=== PATIENT | male | born 1965 | race African-American/Black ===

== ENCOUNTER 2021-11-27 09:36 | Outpatient (CLI) | payer OTHER, SELFPAY | END 2021-11-27 09:37 | disposition home or self-care (01) | LOC: LKVREF 09:40 | PROVIDERS: PCP Family Medicine; Visit Provider Family Medicine | DX: Z00.00 Encounter for general adult medical examination without abnormal findings (principal); Z12.5 Encounter for screening for malignant neoplasm of prostate | CPT/HCPCS: 84153 ==

== ENCOUNTER 2021-12-11 12:18 | Outpatient (CLI) | payer OTHER, SELFPAY | END 2021-12-11 12:19 | disposition home or self-care (01) | LOC: OP CLINIC 12:20 | PROVIDERS: PCP Family Medicine; Visit Provider Surgery | DX: Z12.11 Encounter for screening for malignant neoplasm of colon (principal); K63.5 Polyp of colon; K62.1 Rectal polyp | CPT/HCPCS: 45385; 88305; 99153; J2250; J3010 ==

== ENCOUNTER 2022-01-25 15:17 | Outpatient (CLI) | payer OTHER, SELFPAY ==
[2022-01-25 22:16] LABS: Albumin* 4.4 g/dL (3.3-5.0)
[2022-01-25 22:17] LABS: Chloride* 105 mmol/L (96-114); Potassium* 4.6 mmol/L (3.6-5.1); Sodium* 139 mmol/L (135-149)
[2022-01-25 22:19] LABS: Aspartate Amino Transferase* 43 U/L (12-35); Bilirubin Total* 0.7 mg/dL (0.1-1.5); Blood Urea Nitrogen* 13 mg/dL (7-30); Carbon Dioxide* 27 mmol/L (20-32); Cholesterol* 193 mg/dL (90-199); Estimated Glomerular Filt Rate 89 ml/min; Total Protein* 7.1 g/dL (6.0-8.3)
[2022-01-25 22:20] LABS: Alanine Aminotransferase* 44 U/L (4-50); Alkaline Phosphatase* 82 U/L (40-150); Calcium* 9.3 mg/dL (8.4-10.6); Glucose* 94 mg/dL (60-115); HDL Cholesterol* 46 mg/dL (>=40); LDL Cholesterol Calculated 127 mg/dL (<100); Triglycerides* 99 mg/dL (40-149)
[2022-01-25 22:35] LABS: Vitamin D 25 Hydroxy* 19 ng/mL (30-80)
[2022-01-25 23:07] LABS: Vitamin B12* 348 pg/mL (243-894)
[2022-01-27 14:35] LABS: Insulin, Fasting 15 uIU/mL (3-25)
[2022-01-30 17:40] LABS: Vitamin B6 (Pyridoxal 5-Phos) 178.8 nmol/L (20.0-125.0)
[2022-02-02 14:16] LABS: Sex Hormone Binding Globulin 35 nmol/L (19-76); Testosterone, Free LC-MS/MS 81.9 pg/mL (47.0-244.0); Testosterone, LC-MS/MS 452 ng/dL (300-890)
== END 2022-01-25 15:18 | disposition home or self-care (01) ==
PROVIDERS: PCP Family Medicine; Visit Provider Family Medicine
DX: Z00.00 Encounter for general adult medical examination without abnormal findings (principal); E66.9 Obesity, unspecified; G47.30 Sleep apnea, unspecified; Z13.6 Encounter for screening for cardiovascular disorders; Z13.29 Encounter for screening for other suspected endocrine disorder; Z13.1 Encounter for screening for diabetes mellitus; Z13.0 Encounter for screening for diseases of the blood and blood-forming organs and certain disorders involving the immune mechanism
CPT/HCPCS: 80053; 80061; 82306; 82607; 83525; 84207; 84270; 84402; 84403; 84443

== ENCOUNTER 2022-02-22 08:48 | Outpatient (CLI) | payer OTHER, SELFPAY | END 2022-02-22 08:49 | disposition home or self-care (01) | LOC: RAD 08:48 | PROVIDERS: PCP Family Medicine; Visit Provider Family Medicine | DX: R94.31 Abnormal electrocardiogram [ECG] [EKG] | CPT/HCPCS: 93306; Q9957 ==

== ENCOUNTER 2023-06-06 13:11 | Outpatient (REF) | payer BC, SELFPAY ==
--- OUTSIDE RECORDS SUMMARY | 2023-06-06 13:22 | XMS_ITS | Encounter Summary ---
Author Name Unknown Organization [facility] Address [address] [place] [address] Care Team Providers Care Leach Cell Operator Name Role Phone Roverto Morley MD Primary Care Provider [phone] Encounter Details Date Type Department Care Team (Latest Contact Info) Description 05/02/2023 Travel Social History Tobacco Use Types Packs/Day Years Used Date Smoking Tobacco: Never Assessed Adolescent Education Answer Date Record ed Getting School Help Needed Not on file 11/02 Sex and Gender Information Value Date Recorded Sex Assigned at Not on file Gender Identity Not on file Sexual Orientation Not on file documented as of this encounter Plan of Treatment Not on file documented as of this encounter Visit Diagnoses Not on filedocumented in this encounter Care Teams Leach Cell Operator Relationship Specialty Start Date End Date Roverto Morley MD [facility] [address] [address] PCP - General Family Medicine 07/05/22 documented as of this encounter
--- OUTSIDE RECORDS SUMMARY | 2023-06-06 13:22 | XMS_ITS | Referral Summary ---
Author Name Unknown Organization [facility] Address [address] [place] [address] Care Team Providers Care Podiatry Doctor Name Role Phone Roverto Morley MD Primary Care Provider [phone] Encounters Date Type Department Care Team Description 05/02/2023 Travel 05/02/2023 8:25 PM CDT - 05/02/2023 9:33 PM CDT Emergency [facility] Emergency Dept [address] [place] [address] Slim Cali MD Burns, Bradley Joseph, SVT (supraventricular tachycardia) Discharge Disposition: Home or Self Care from Last 3 Months Allergies Active Allergy Reactions Criticality Noted Date Comments Fumaric Acid Itching 10/27/2009 Morphine Itching,Unknown,Other (See Comments) High 11/27/2021 itching Medications No known medications Social History Tobacco Use Types Packs/Day Years Used Date Smoking Tobacco: Never Assessed Adolescent Education Answer Date Record ed Getting School Help Needed Not on file 11/02 Sex and Gender Information Value Date Recorded Sex Assigned at Not on file Gender Identity Not on file Sexual Orientation Not on file Last Filed Vital Signs Vital Sign Reading Time Taken Comments Blood Pressure 137/81 05/02/2023 9:22 PM CDT Pulse 102 05/02/2023 9:22 PM CDT Temperature - - Respiratory Rate 18 05/02/2023 9:32 PM CDT Oxygen Saturation 98% 05/02/2023 9:32 PM CDT Inhaled Oxygen Concentration - - Weight 145.2 kg (320 lb) 05/02/2023 8:30 PM CDT Height 190.5 cm (6' 3) 05/02/2023 8:30 PM CDT Body Mass Index 40 05/02/2023 8:30 PM CDT Plan of Treatment Not on file Procedures Procedure Name Priority Date/Time Associated Diagnosis Comments CBC WITH PLATELETS & DIFFERENTIAL STAT 05/02/2023 8:35 PM CDT CBC WITH PLATELETS AND DIFFERENTIAL STAT 05/02/2023 8:35 PM CDT BASIC METABOLIC PANEL STAT 05/02/2023 8:35 PM CDT EXTRA PURPLE TOP TUBE STAT 05/02/2023 8:35 PM CDT EXTRA GREEN TOP (LITHIUM HEPARIN) TUBE STAT 05/02/2023 8:35 PM CDT EXTRA RED TOP TUBE STAT 05/02/2023 8: 35 PM CDT EXTRA BLUE TOP TUBE STAT 05/02/2023 8 :35 PM CDT EXTRA TUBE STAT 05/02/2023 8:35 PM CDT EKG 12-LEAD, TRACING ONLY STAT 05/02/2023 8:33 PM CDT EKG 12-LEAD, TRACING ONLY STAT 05/02/2023 8:28 PM CDT from Last 3 Months Results * Extra Purple Top Tube (05/02/2023 8:35 PM CDT) Hold Specimen [facility] 05/02/2023 9:46 PM CDT LABORATORY Blood VENOUS LINE / Unknown Venipuncture / Unknown 05/02/2023 8:35 PM CDT 05/02/2023 8:41 PM CDT Slim Cali MD LAB - BLOOD ORDERABL ES LABORATORY [facility] Lab [address] [facility] Lab (1st floor, no room number) [place] [address] * Extra Green Top ([place] Heparin) Tube (05/02/2023 8:35 PM CDT) Hold Specimen [facility] 05/02/2023 9:46 PM CDT [facility] LABORATORY Blood VENOUS LINE / Unknown Venipuncture / Unknown 05/02/2023 8:35 PM CDT 05/02/2023 8:41 PM CDT Slim Cali MD LAB - BLOOD ORDERABL ES [facility] [address] Lab (1st floor, no room number) [place] [address] * Extra Red Top Tube (05/02/2023 8:35 PM CDT) Hold Specimen [facility] 05/02/2023 9:46 PM CDT [facility] LAB[facility]ATORY Blood VENOUS LINE / Unknown Venipuncture / Unknown 05/02/2023 8:35 PM CDT 05/02/2023 8:41 PM CDT Slim Cali MD LAB - BLOOD ORDERABL ES [facility] Lab [address] Lab (1st floor, no room number) [place] [address] * Extra Blue Top Tube (05/02/2023 8:35 PM CDT) Hold Specimen [facility] 05/02/2023 9:46 PM CDT [facility] LAB[facility]AT[facility] Blood VENOUS LINE / Unknown Venipuncture / Unknown 05/02/2023 8:35 PM CDT 05/02/2023 8:41 PM CDT Slim Cali MD LAB - BLOOD ORDERABL ES [facility] Acute Care Lab [address] Lab (1st floor, no room number) [place] [id number] * CBC with platelets and differential (05/02/2023 8:35 PM CDT) WBC Count 5.1 4.0 - 11.0 10e3/uL 05/02/2023 8:44 PM CDT [facility] LAB[facility] RBC Count 5.23 4.40 - 5.90 10e6/uL 05/02/2023 8:44 PM CDT [facility] Hemoglobin 15.4 13.3 - 17.7 g/dL 05/02/2023 8:44 PM CDT [facility] LAB[facility] Hematocrit 45.4 40.0 - 53.0 % 05/02/2023 8:44 PM CDT [facility] MCV 87 78 - 100 fL 05/02/2023 8:44 PM CDT [facility] MCH 29.4 26.5 - 33.0 pg 05/02/2023 8:44 PM CDT [facility] MCHC 33.9 31.5 - 36.5 g/dL 05/02/2023 8:44 PM CDT [facility] RDW 12.7 10.0 - 15.0 % 05/02/2023 8:44 PM CDT [facility] Platelet Count 307 150 - 450 10e3/uL 05/02/2023 8:44 PM CDT [facility] % Neutrophils 59 % 05/02/2023 8:44 PM CDT [facility] % Lymphocytes 29 % 05/02/2023 8:44 PM CDT [facility] % Monocytes 9 % 05/02/2023 8:44 PM CDT [facility] % Eosinophils 2 % 05/02/2023 8:44 PM CDT [facility] % Basophils 1 % 05/02/2023 8:44 PM CDT [facility] % Immature Granulocytes 0 % 05/02/2023 8:44 PM CDT [facility] NRBCs per 100 WBC 0 <1 /100 024 8:44 PM CDT [facility] Absolute Neutrophils 3.0 1.6 - 8.3 10e3/uL 05/02/2023 8:44 PM CDT [facility] Absolute Lymphocytes 1.5 0.8 - 5.3 10e3/uL 05/02/2023 8:44 PM CDT [facility] Absolute Monocytes 0.4 0.0 - 1.3 10e3/uL 05/02/2023 8:44 PM CDT [facility] Absolute Eosinophils 0.1 0.0 - 0.7 10e3/uL 05/02/2023 8:44 PM CDT [facility] Absolute Basophils 0.1 0.0 - 0.2 10e3/uL 05/02/2023 8:44 PM CDT [facility] Absolute Immature Granulocytes 0.0 <=0.4 10e3/uL 05/02/2023 8:44 PM CDT [facility] Absolute NRBCs 0.0 10e3/uL 05/02/2023 8:44 PM CDT [facility] LAB[facility] Blood VENOUS LINE / Unknown Venipuncture / Unknown 05/02/2023 8:35 PM CDT 05/02/2023 8:41 PM CDT Vineet Houston DO LAB - BLOOD ORDE ABEL [facility] LABORATORY [facility] Lab [address] [facility] Lab (1st floor, no room number) [place] [phone] * (ABNORMAL) Basic metabolic panel (05/02/2023 8:35 PM CDT) Sodium 141 135 - 145 mmol/L 05/02/2023 9:01 PM CDT [facility] LABORATORY Comment:Reference intervals for this test were updated on 11/05/2022 to more accurately reflect our healthy population. There may be differences in the flagging of prior results with similar values performed with this method. Interpretation of those prior results can be made in the context of the updated reference intervals. Potassium 3.9 3.4 - 5.3 mmol/L 05/02/2023 9:01 PM CDT [facility] Chloride 105 98 - 107 mmol/L 05/02/2023 9:01 PM CDT [facility] Carbon Dioxide (CO2) 23 22 - 29 mmol/L 05/02/2023 9:01 PM CDT [facility] Anion Gap 13 7 - 15 mmol/L 05/02/2023 9:01 PM CDT [facility] Urea Nitrogen 19.3 6.0 - 20.0 mg/dL 05/02/2023 9:01 PM CDT [facility] Creatinine 1.03 0.67 - 1.17 mg/dL 05/02/2023 9:01 PM CDT [facility] GFR Estimate 86 >60 mL/min/1. 73m2 05/02/2023 9:01 PM CDT [facility] Calcium 9.3 8.6 - 10.0 mg/dL 05/02/2023 9:01 PM CDT LABORATORY Glucose 160(H) 70 - 99 mg/dL 05/02/2023 9:01 PM CDT [facility] LAB[facility] Blood VENOUS LINE / Unknown Venipuncture / Unknown 05/02/2023 8:35 PM CDT 05/02/2023 8:41 PM CDT Vineet Houston DO LAB - BLOOD ORDE RABLES LABORATORY [facility] Lab [address] Lab (1st floor, no room number) [place] [address], [facility] * EKG 12-lead, tracing only (05/02/2023 8:33 PM CDT) Only the most recent of2 resultswithin the time period is included. Systolic Blood Pressure mmHg RADIOLOGY RESULTS Diastolic Blood Pressure mmHg RADIOLOGY RESULTS Ventricular Rate 106 BPM RAD IOLOGY RESULTS Atrial Rate 106 BPM RADIOLOG Y RESULTS HI Interval 178 ms RADIOLOG Y RESULTS QRS Duration 86 ms RADIOLO GY RESULTS QT 344 ms RADIOLOGY RESULTS QTc 456 ms RADIOLOGY RESULTS P [place] 63 degrees RADIOLOGY RESULTS R AXIS 43 degrees RADIOLOGY RESULTS T [place] 29 degrees RADIOLOGY RESULTS Interpretation ECG Sinus tachycardia Otherwise normal ECG When compared with ECG of 02-MAY-2023 20:28, (unconfirmed) Fusion complexes are no longer Present Premature ventricular complexes are no longer Present Vent. rate has decreased BY ??58 BPM RADIOLOGY RESULTS 05/02/2023 8:33 PM CDT 05/02/2023 9:59 PM CDT Vineet Houston DO ECG ORDERABLES RADIOLOGY RESULTS from Last 3 Months Care Teams Podiatry Doctor Relationship Specialty Start Date End Date Roverto Morley MD [facility] [address] [address] PCP - General Family Medicine 07/05/22
--- OUTSIDE RECORDS SUMMARY | 2023-06-06 13:22 | XMS_ITS | Encounter Summary ---
Author Name Unknown Organization [facility] Address [address] [place] [address] Care Team Providers Care Orchestra Leader Name Role Phone Roverto Morley MD Primary Care Provider [phone] Reason for Visit * Reason Comments Tachycardia Encounter Details Date Type Department Care Team (Late st Contact Info) Description 05/02/2023 8:25 PM CDT - 05/02/2023 9:[address] [facility] Emergency Dept [address] [place] [address] Slim Cali MD [facility] [address] [place] [address] Vineet Cui DO [facility] [address] [facility] [place] [address] SVT (supraventricular tachycardia) Discharge Disposition: Home or Self Care Social History Tobacco Use Types Packs/Day Years Used Date Smoking Tobacco: Never Assessed Adolescent Education Answer Date Record ed Getting School Help Needed Not on file 11/02 Sex and Gender Information Value Date Recorded Sex Assigned at Not on file Gender Identity Not on file Sexual Orientation Not on file documented as of this encounter Last Filed Vital Signs Vital Sign Reading [...] Mass Index 40 05/02/2023 8:30 PM CDT documented in this encounter Discharge Instructions * Discharge Instructions* Vineet Cui DO - 05/02/2023 9:10 PM CDT What do you do next: Continue your home medications unless we have specifically changed them Continue to monitor for recurrent fluttering of the heart, lightheadedness, etc. I think it is reasonable to talk with your primary care clinic about a wearable heart monitor firstand then depending on the results of that they can discuss further outpatient cardiology/electrophysiology follow-up if needed. Follow up as indicated below When do you return: Review your discharge papers for specifics on reasons to return. Thank you for allowing us to care for you today. * Attachments The following attachments cannot be sent through Care Everywhere. * Supraventricular Tachycardia (Vietnamese) documented in this encounter ED Notes * Qamar Priest RN - 05/02/2023 8:47 PM CDT Images from the original note were not included. Pt states was watching TV and noticed that his heart felt like it was racing. States his watch showed him his heart rate was in the 180's. States felt light headed, winded and short of breath. on presentation states feeling heart racing but no chest pain and no short of breath. Triage Assessment (Adult) Row Name 05/02/232044 Triage Assessment Airway WDL WDL Respiratory WDL Respiratory WDL WDL Cardiac WDL Cardiac WDL X initial arrival pt in SVT Cardiac Rhythm SVT Peripheral/Neurovascular WDL Peripheral Neurovascular WDL capillary refill Capillary Refill, General greater than 3 secs Cognitive/Neuro/Behavioral WDL Cognitive/Neuro/Behavioral WDL WDL * Qamar Priest RN - 05/02/2023 8:42 PM CDT 05/02/232029 Vital Signs BP (!) 138/98 Patient Position Lying Pulse (!) 170 Pulse Rate Source Monitor Resp 16 SpO2 99 % O2 Device None (Room air) Wilton Coma Scale Best Eye Response 4-->(E4) spontaneous Best Motor Response 6-->(M6) obeys commands Best Verbal Response 5-->(V5) oriented Symone Coma Scale Score 15 Weight & Height Weight 145.2 kg (320 lb) Height 1.905 m (6' 3) Height Method Stated Provider at bedside, pt in stable SVT. Denies chest pain and short of breath but admits to heart racing. Dr cui, and 2 other RN at bedside, performed vagal maneuver x 2 with second vagal successfulin getting patient heart rate in Sinus tachy at 106. See pre and post EKGs on chart * Vivienne Leung RN - 05/02/2023 8:31 PM CDT Pt states was watching TV and noticed that his heart felt like it was racing. States his watch showed him his heart rate was in the 180's. States felt light headed, winded and short of breath. * Vineet Cui DO - 05/02/2023 8:24 PM CDT History Chief Complaint: Tachycardia HPI Darien Dalton is a 57 year old male who presents to the ED with palpitations. The patient statesthat he was watching TV and noted that his heart felt like it was racing. He looked on his watch and it showed that the heart rate was in the 180s. He felt lightheaded winded and short of breath and states he felt like he was running even though he was standing still. The patient denies any specific history of this though he notes in the past he has had some degree of palpitations but had never had a watch to check the heart rate. Independent Historian: None - Patient Only Review of External Notes: None Allergies: Morphine Fumaric Acid Physical Exam Patient Vitals for the past 24 hrs: BP Pulse Resp SpO2 Height Weight 05/02/232113 -- 101 16 96 % -- -- 05/02/232102 -- 95 12 96 % -- -- 05/02/232099 135/85 97 13 98 % -- -- 05/02/232058 135/85 95 -- -- -- -- 05/02/232057 -- 98 12 97 % -- -- 05/02/232054 -- 96 17 96 % -- -- 05/02/232052 -- 104 16 95 % -- -- 05/02/232044 135/84 99 20 95 % -- -- 05/02/232037 (!) 125/113 113 (!) 35 98 % -- -- 05/02/232029 (!) 138/98 (!) 170 16 99 % 1.905 m (6' 3) 145.2 kg (320 lb) Physical Exam Constitutional: Vital signs reviewed as above. Eyes: PEERL, EOMI B/L Neck: No JVD noted. FROM Cardiovascular: tachycardic rate, Regular rhythm and normal heart sounds. No murmur heard. Equal B/L peripheral pulses. Pulmonary/Chest: Effort normal and breath sounds normal. No respiratory distress. Patient has no wheezes. Patient has no rales. Gastrointestinal: Soft. There is no tenderness. Musculoskeletal/Extremities: No pitting edema noted. Normal tone. Neurological: Alert Skin: Skin is warm and dry. There is no diaphoresis noted. Psychiatric: The patient appears calm. Emergency Department Course ECG #1 ECG taken at 2027, ECG read at 2027 Supraventricular tachycardia with premature ventricular complexes or fusion complexes Nonspecific ST abnormality Abnormal QRS-T angle, consider primary T wave abnormality Abnormal ECG Rate 164 bpm. HI interval * ms. QRS duration 86 ms. QT/QTc 292/482 ms. P-R-T axes * 63 -3. ECG #2 ECG taken at 2032, ECG read at 2032 Sinus tachycardia Otherwise normal ECG Sinus tachycardia is new as compared to 1st ECG. Rate 106 bpm. HI interval 178 ms. QRS duration 86 ms. QT/QTc 344/456 ms. P-R-T axes 63 43 29. Laboratory: Imaging: Labs Ordered and Resulted from Time of ED Arrival to Time of ED Departure BASIC METABOLIC PANEL - Abnormal Result Value Sodium 141 Potassium 3.9 Chloride 105 Carbon Dioxide (CO2) 23 Anion Gap 13 Urea Nitrogen 19.3 Creatinine 1.03 GFR Estimate 86 Calcium 9.3 Glucose 160 (*) CBC WITH PLATELETS AND DIFFERENTIAL WBC Count 5.1 RBC Count 5.23 Hemoglobin 15.4 Hematocrit 45.4 MCV 87 MCH 29.4 MCHC 33.9 RDW 12.7 Platelet Count 307 % Neutrophils 59 % Lymphocytes 29 % Monocytes 9 % Eosinophils 2 % Basophils 1 % Immature Granulocytes 0 NRBCs per 100 WBC 0 Absolute Neutrophils 3.0 Absolute Lymphocytes 1.5 Absolute Monocytes 0.4 Absolute Eosinophils 0.1 Absolute Basophils 0.1 Absolute Immature Granulocytes 0.0 Absolute NRBCs 0.0 No orders to display Emergency Department Course & Assessments: Interventions: Medications sodium chloride 0.9% BOLUS 1,000 mL (1,000 mLs Intravenous $New Bag 05/02/232052) Assessments, Independent Interpretation, Consult/Discussion of ManagementTests: ED Course as of 05/02/232119May 02, [id number] Rechecked and updated. Social Determinants of Health affecting care: None Disposition: See ED Course and MDM Impression & Plan [facility] Diagnoses: None Code Status: No Order MIPS (If applicable): N/A Medical Decision Making: Darien Dalton is a 57 year old male who presents with tachycardia and palpitations. Broad differential diagnosis considered including SVT, sinus tachycardia, re-entrant tachycardia for the narrow complex regular tachycardia that she presents with by ECG. Signs and symptoms here are consistent with SVT. This was successfully cardioverted with vagal maneuvers. Post-conversion ECG shows sinus tachycardia. Do not suspect ACS and I will not check troponin. There is no chest pain or reason to check D-dimer. The patient remained well after vagal maneuvers and I felt he was safe to be discharged home. I will encourage primary care follow-up and consider outpatient heart monitor testing. Depending on the results of that or recurrence of symptoms, electrophysiology consultation can be considered. Patient knows to return with any new or worsening symptoms. Anticipatory guidance given prior to discharge. Critical Care: None. Diagnosis: ICD-10-CM 1. SVT (supraventricular tachycardia) I47.10 Discharge Medications: New Prescriptions No medications on file 05/02/2023 CuiVineet DO Burns, Bradley Joseph, DO 05/02/232121 documented in this encounter Plan of Treatment Not on file documented as of this encounter Procedures Procedure Name Priority Date/Time Associated Diagnosis Comments EXTRA TUBE STAT 05/02/2023 8:35 PM CDT EXTRA PURPLE TOP TUBE STAT 05/02/2023 8:35 PM CDT EXTRA GREEN TOP (LITHIUM HEPARIN) TUBE STAT 05/02/2023 8:35 PM CDT EXTRA RED TOP TUBE STAT 05/02/2023 8: 35 PM CDT EXTRA BLUE TOP TUBE STAT 05/02/2023 8 :35 PM CDT CBC WITH PLATELETS AND DIFFERENTIAL STAT 05/02/2023 8:35 PM CDT CBC WITH PLATELETS & DIFFERENTIAL STAT 05/02/2023 8:35 PM CDT BASIC METABOLIC PANEL STAT 05/02/2023 8:35 PM CDT EKG 12-LEAD, TRACING ONLY STAT 05/02/2023 8:33 PM CDT EKG 12-LEAD, TRACING ONLY STAT 05/02/2023 8:28 PM CDT documented in this encounter Results * CBC with platelets and differential (05/02/2023 [...] PM CDT 05/02/2023 8:41 PM CDT Vineet Cui DO LAB - BLOOD DRU ROMAN [facility] LABORATORY [facility] Acute [facility] Lab [address] Lab (1st floor, no room number) [place] [address], [facility] * (ABNORMAL) Basic metabolic panel (05/02/2023 8:35 PM CDT) [facility] Signature Sodium 141 135 - 145 mmol/L 05/02/2023 9:01 PM CDT LABORATORY Comment:Reference intervals for this test were updated on 11/05/2022 to more accurately reflect our healthy population. There may be differences in the flagging of prior results with similar values performed with this method. Interpretation of those prior results can be made in the context of the updated reference intervals. Potassium 3.9 3.4 - 5.3 mmol/L 05/02/2023 9:01 PM CDT LABORATORY Chloride 105 98 - 107 mmol/L 05/02/2023 9:01 PM CDT LABORATORY Carbon Dioxide (CO2) 23 22 - 29 mmol/L 05/02/2023 9:01 PM CDT LABORATORY Anion Gap 13 7 - 15 mmol/L 05/02/2023 9:01 PM CDT LABORATORY Urea Nitrogen 19.3 6.0 - 20.0 mg/dL 05/02/2023 9:01 PM CDT LABORATORY Creatinine 1.03 0.67 - 1.17 mg/dL 05/02/2023 9:01 PM CDT LABORATORY GFR Estimate 86 >60 mL/min/1. 73m2 05/02/2023 9:01 PM CDT LABORATORY Calcium 9.3 8.6 - 10.0 mg/dL 05/02/2023 9:01 PM CDT LABORATORY Glucose 160(H) 70 - 99 mg/dL 05/02/2023 9:01 PM CDT LABORATORY Blood VENOUS LINE / Unknown Venipuncture / Unknown 05/02/2023 8:35 PM CDT 05/02/2023 8:41 PM CDT Vineet Cui DO LAB - BLOOD DRU ROMAN [facility] Lab [address] Lab (1st floor, no room number) [place] [address] * Extra Purple Top Tube (05/02/2023 8:35 PM CDT) Hold Specimen [facility] 05/02/2023 9:46 PM CDT RH LABORATORY Blood VENOUS LINE / Unknown Venipuncture / Unknown 05/02/2023 8:35 PM CDT 05/02/2023 8:41 PM CDT Slim Cali MD LAB - BLOOD ORDERABL ES Performing Organization Address City/[facility]/ZIP Co de Phone Number [facility] [address] Lab (1st floor, no room number) [place] [address] * Extra Green Top (Bowlegs Heparin) Tube (05/02/2023 8:35 PM CDT) Hold Specimen [facility] 05/02/2023 9:46 PM CDT RH LABORATORY Blood VENOUS LINE / Unknown Venipuncture / Unknown 05/02/2023 8:35 PM CDT 05/02/2023 8:41 PM CDT Slim Cali MD LAB - BLOOD ORDERABL ES [facility] [address] Lab (1st floor, no room number) [place] [address] * Extra Red Top Tube (05/02/2023 8:35 PM CDT) Hold Specimen [facility] 05/02/2023 9:46 PM CDT RH LABORATORY Blood VENOUS LINE / Unknown Venipuncture / Unknown 05/02/2023 8:35 PM CDT 05/02/2023 8:41 PM CDT Slim Cali MD LAB - BLOOD ORDERABL ES LABORATORY [facility] Lab [address] [place] Lab (1st floor, no room number) [place] [address] * Extra Blue Top Tube (05/02/2023 8:35 PM CDT) Hold Specimen [facility] 05/02/2023 9:46 PM CDT LABORATORY Blood VENOUS LINE / Unknown Venipuncture / Unknown 05/02/2023 8:35 PM CDT 05/02/2023 8:41 PM CDT Slim Cali MD LAB - BLOOD ORDERABL ES Performing Organization Address [facility]/ZIP Co de Phone Number [facility] [address] Lab (1st floor, no room number) [place] [phone] [place] [address] * EKG 12-lead, tracing only (05/02/2023 8:33 PM CDT) Systolic Blood Pressure mmHg RADIOLOGY RESULTS Diastolic Blood Pressure mmHg RADIOLOGY RESULTS Ventricular Rate 106 BPM RAD IOLOGY RESULTS Atrial Rate 106 BPM RADIOLOG Y RESULTS HI Interval 178 ms RADIOLOG Y RESULTS QRS Duration 86 ms RADIOLO GY RESULTS QT 344 ms RADIOLOGY RESULTS QTc 456 ms RADIOLOGY RESULTS P [place] 63 degrees RADIOLOGY RESULTS R AXIS 43 degrees RADIOLOGY RESULTS T [place] 29 degrees RADIOLOGY RESULTS Interpretation ECG Sinus tachycardia Otherwise normal ECG When compared with ECG of 02-MAY-2023 20:28, (unconfirmed) Fusion complexes are no longer Present Premature ventricular complexes are no longer Present Vent. rate has decreased BY ??58 BPM RADIOLOGY RESULTS 05/02/2023 8:33 PM CDT 05/02/2023 9:59 PM CDT Vineet Cui DO ECG ORDERABLES Performing Organization Address City/[facility]/ZIP Co de Phone Number RADIOLOGY RESULTS * EKG 12-lead, tracing only (05/02/2023 8:28 PM CDT) Systolic Blood Pressure mmHg RADIOLOGY RESULTS Diastolic Blood Pressure mmHg RADIOLOGY RESULTS Ventricular Rate 164 BPM RAD IOLOGY RESULTS Atrial Rate BPM RADIOLOG Y RESULTS HI Interval ms RADIOLOG Y RESULTS QRS Duration 86 ms RADIOLO GY RESULTS QT 292 ms RADIOLOGY RESULTS QTc 482 ms RADIOLOGY RESULTS P [place] degrees RADIOLOGY RESULTS R AXIS 63 degrees RADIOLOGY RESULTS T [place] -3 degrees RADIOLOGY RESULTS Interpretation ECG Supraventricular tachycardia with Premature ventricular complexes or Fusion complexes Nonspecific ST abnormality Abnormal QRS-T angle, consider primary T wave abnormality Abnormal ECG No previous ECGs available Confirmed by - EMERGENCY ROOM, PHYSICIAN ([id number]), desk editor MODE VICK ([id number]) on 05/05/2023 7:13:18 AM RADIOLOGY RESULTS 05/02/2023 8:28 PM CDT 05/05/2023 7:13 AM CDT Vineet Cui DO ECG ORDERABLES RADIOLOGY RESULTS documented in this encounter Visit Diagnoses Diagnosis SVT (supraventricular tachycardia) (H24) Other specified cardiac dysrhythmias documented in this encounter Administered Medications Inactive Administered Medications - up to 3 most recent administrations Medication Order MAR Action Action Date Dose Rate Site sodium chloride 0.9% BOLUS 1,000 mL Intravenous, 1,000 mL, ONCE, at 1,000 mL/hr, Administer over 1 Hours, On Fri05/02/23 at 2054, For 1 dose $New Bag 05/02/2023 8:53 PM CDT 1,000 mLs 1000 mL/hr documented in this encounter Active and Recently Administered Medications Times are shown in CDT. Scheduled Medication Order 04/30/2023 05/01/2023 05/02/2023 sodium chloride 0.9% BOLUS 1,000 mL (COMPLETED) Intravenous, 1,000 mL, ONCE, at 1,000 mL/hr, Administer over 1 Hours, On Fri05/02/23 at 2054, For 1 dose 2052 ($New Bag - Pro vider: Qamar Priest, RN)2121 (Stopped - Provider: Qamar Priest RN) documented in this encounter Care Teams Orchestra Leader Relationship Specialty Start Date End Date Roverto Morley MD [facility] [address] [phone] PCP - General Family Medicine 07/05/22 documented as of this encounter
--- OUTSIDE RECORDS SUMMARY | 2023-06-06 13:22 | XMS_ITS | Clinical Summary ---
Author Name Unknown Organization [facility] Address [place], [place] [address] Care Team Providers Care Financial Sales Advisor Name Role Phone Roverto Morley MD Primary Care Provider [phone] Encounters Date Type Department Care Team Description 04/04/2023 10:03 AM TRAVEL MANAGER - 04/04/2023 11:59 PM TRAVEL MANAGER Hospital Encounter [facility] Medical Imaging [address] [place] [address] Ramona Barrett PA Prostate cancer (HC); Nontoxic single thyroid nodule 04/04/2023 Travel from Last 3 Months Social History Tobacco Use Types Packs/Day Years Used Date Smoking Tobacco: Never Assessed Sex and Gender Information Value Date Recorded Sex Assigned at Not on file Gender Identity Not on file Sexual Orientation Not on file Plan of Treatment Health Maintenance Due Date Last Done Comments Tdap 10/24/1978 Depression screening for age 12+ 1979 HIV for age 15-65 10/24/1982 BMI (ht and wt on same day) for age 18+ 10/24/1985 Hepatitis C screening for age 18-79 10/24/1985 Tetanus booster 1987 Colonoscopy through age 75 10/24/2012 Lipids for age 45-75 10/24/2012 Zoster (shingles) series for age 50+ (1 of 2) 10/24/2017 COVID-19 vaccine series (2022- season) 2022 01/26/2022, 01/15/2021, 06/20/2020, Additional history exists Influenza for age 50-64 10/12/2023 Pneumococcal series for age 6-64 Aged Out No longer eligible based on patient's age to complete this topic Procedures Procedure Name Priority Date/Time Associated Diagnosis Comments US THYROID/PARATHYROID Routine 04/04/2023 12:17 PM TRAVEL MANAGER Prostate cancer (HC) Nontoxic single thyroid nodule from Last 3 Months Results * US THYROID/PARATHYROID (04/04/2023 12:17 PM TRAVEL MANAGER) Anatomical Region Laterality Modality THYROID Ultrasound Narrative 04/04/2023 3:49 PM TRAVEL MANAGER Limited US Thyroid 04/04/2023 Darien Dalton [id number] Indication: Prostate cancer, thyroid nodule FINDINGS: ??Reviewed prior ultrasound and PET scan with Dr Colin Zhao. At the time of the patient arrival, further imaging completed. Small, 6mm nodule located deep in the patient neck, posterior aspect of the mid inferior left thyroid. Limited by patient body habitus and location of nodule. Discussed nodule and imaging with both the patient and again with attending, Dr Zhao. After review of the risks, benefits, and alternatives, opted not to proceed with fine needle aspiration. Recommend follow up ultrasound monitoring in 3 months. Batsheva Ly, ACNP [facility] Ramona ISLAS from Last 3 Months Care Teams Financial Sales Advisor Relationship Specialty Start Date End Date Roverto Morley MD [address] [place] [address] PCP - General Family Practice 02/22/22
--- OUTSIDE RECORDS SUMMARY | 2023-06-06 13:22 | XMS_ITS | Clinical Summary ---
Author Name Unknown Organization [facility] Address [address] [place] [address] Care Team Providers Care Jetting Machine Operator Name Role Phone Roverto Morley MD Primary Care Provider [phone] Allergies Active Allergy Reactions Criticality Noted Date Comments Fumaric Acid Itching 10/27/2009 Morphine Itching,Unknown,Other (See Comments) High 11/27/2021 itching Medications No known medications Encounters Date Type Department Care Team Description 05/02/2023 8:25 PM CDT - 05/02/2023 9:33 PM CDT Emergency [facility] Emergency Dept [address] [place] [address] Slim Cali MD Burns, Bradley Joseph, DO SVT (supraventricular tachycardia) Discharge Disposition: Home or Self Care 05/02/2023 Travel from Last 3 Months Social History [...] 05/02/2023 8:30 PM CDT Plan of Treatment Health Maintenance Due Date Last Done Comments ADVANCE CARE PLANNING 1965 ANNUAL REVIEW OF HM ORDERS 1967 CT COLONOGRAPHY 1967 FIT 1967 FLEX SIG 1967 sDNA (Cologuard) 1965 Pneumococcal Vaccine: Pediatrics (0 to 5 Years) and At-Risk Patients (6 to 64 Years) (1 of 2 - PCV) 10/24/1973 COLONOSCOPY 10/24/1977 COLORECTAL CANCER SCREENING 10/24/1977 HIV SCREENING 10/24/1982 HEPATITIS C SCREENING 10/24/1985 HEPATITIS B IMMUNIZATION (1 of 3 - 19+ 3-dose series) 10/24/1986 LIPID 2007 YEARLY PREVENTIVE VISIT 10/27/2010 10/27/2009 ZOSTER IMMUNIZATION (1 of 2) 10/24/2017 COVID-19 Vaccine ( season) 2022 01/26/2022, 01/15/2021, 06/20/2020, Additional history exists INFLUENZA VACCINE (#1) 2022 02/15/2016 PHQ-2 (once per calendar year) 2023 DTAP/TDAP/TD IMMUNIZATION (2 - Td or Tdap) 03/31/2024 03/31/2014 GLUCOSE 05/01/2026 05/02/2023 HPV IMMUNIZATION Aged Out No longer e ligible based on patient's age to complete this topic IPV IMMUNIZATION Aged Out No longer e ligible based on patient's age to complete this topic MENINGITIS IMMUNIZATION Aged Out No l onger eligible based on patient's age to complete this topic RSV MONOCLONAL ANTIBODY Aged Out No l onger eligible based on patient's age to complete [...] Tube (05/02/2023 8:35 PM CDT) Hold Specimen [facility] 05/02/2023 9:46 PM CDT RH LABORATORY Blood VENOUS LINE / Unknown Venipuncture / Unknown 05/02/2023 8:35 PM CDT 05/02/2023 8:41 PM CDT Slim Cali MD LAB - BLOOD ORDERABL ES LABORATORY [facility] Acute Care Lab [address] [facility] Lab (1st floor, no room number) [place] [address] * Extra Green Top (Luis Lopez Heparin) Tube (05/02/2023 8:35 PM CDT) Hold Specimen [facility] 05/02/2023 9:46 PM CDT RH LABORATORY Blood VENOUS LINE / Unknown Venipuncture / Unknown 05/02/2023 8:35 PM CDT 05/02/2023 8:41 PM CDT Slim Cali MD LAB - BLOOD ORDERABL ES LABORATORY [facility] Care Lab [address] Lab (1st floor, no room number) [place] [phone] * Extra Red Top Tube (05/02/2023 8:35 PM CDT) Hold Specimen [facility] 05/02/2023 9:46 PM CDT RH LABORATORY Blood VENOUS LINE / Unknown Venipuncture / Unknown 05/02/2023 8:35 PM CDT 05/02/2023 8:41 PM CDT Slim Cali MD LAB - BLOOD ORDERABL ES [facility] Care Lab [address] Lab (1st floor, no room number) [place] [phone] [place] [address] * Extra Blue Top Tube (05/02/2023 8:35 PM CDT) Hold Specimen [facility] 05/02/2023 9:46 PM CDT RH LABORATORY Blood VENOUS LINE / Unknown Venipuncture / Unknown 05/02/2023 8:35 PM CDT 05/02/2023 8:41 PM CDT Slim Cali MD LAB - BLOOD ORDERABL ES LABORATORY [facility] [address] Lab (1st floor, no room number) [place] [phone] [place] [address] * CBC with platelets and differential (05/02/2023 [...] CDT 05/02/2023 8:41 PM CDT Vineet Houston LAB - BLOOD DRU ABEL RH LABORATORY [facility] Acute Care Lab [address] Lab (1st floor, no room number) [place] [address], [facility] * (ABNORMAL) Basic metabolic panel (05/02/2023 8:35 PM CDT) [facility] Sodium 141 135 - 145 mmol/L 05/02/2023 [...] CDT Vineet Houston DO LAB - BLOOD DRU ROMNA [facility] Acute Care Lab [address] [facility] Lab (1st floor, no room number) [place] [address], [facility] * EKG 12-lead, tracing only (05/02/2023 8:33 PM CDT) Only the most recent of2 resultswithin the time period is included. Systolic Blood Pressure mmHg RADIOLOGY RESULTS Diastolic Blood Pressure mmHg RADIOLOGY RESULTS Ventricular Rate 106 BPM RAD IOLOGY RESULTS Atrial Rate 106 BPM RADIOLOG Y RESULTS ME Interval 178 ms RADIOLOG Y RESULTS QRS Duration 86 ms RADIOLO GY RESULTS QT 344 ms RADIOLOGY RESULTS QTc 456 ms RADIOLOGY RESULTS P Maury 63 degrees RADIOLOGY RESULTS R AXIS 43 degrees RADIOLOGY RESULTS T Maury 29 degrees RADIOLOGY RESULTS Interpretation ECG Sinus tachycardia Otherwise normal ECG When compared with ECG of 02-MAY-2023 20:28, (unconfirmed) Fusion complexes are no longer Present Premature ventricular complexes are no longer Present Vent. rate has decreased BY ??58 BPM RADIOLOGY RESULTS 05/02/2023 8:33 PM CDT 05/02/2023 9:59 PM CDT Vineet Houston DO ECG ORDERABLES RADIOLOGY RESULTS from Last 3 Months Care Teams Jetting Machine Operator Relationship Specialty Start Date End Date Roverto Morley MD [facility] [address] [place] [address] PCP - General Family Medicine 07/05/22
--- OUTSIDE RECORDS SUMMARY | 2023-06-06 13:22 | XMS_ITS | Encounter Summary ---
Author Name Unknown Organization [facility] Address [address], [place] [address] Care Team Providers Care Product Marketing Executive Name Role Phone Clinician, Not Found MD Primary Care Provider Un available Reason for Visit * Reason Comments Prior Authorization For Medication Wegov y 2.4 mg -approved Encounter Details Date Type Department Care Team (Late st Contact Info) Description 04/03/2023 6:40 PM ELEVATOR OPERATOR E-Visit [facility] [address] [facility] [address] [place], [place] [phone] Serenity Barry PA-C [address] [place], [place] [phone] Chief Comp: Prior Authorization For Medication Social History Tobacco Use Types Packs/Day Years Used Date Smoking Tobacco: Former Cigarettes 0 11/06/1991 - 11/05/1993 Smokeless Tobacco: Never Chew Alcohol Use Standard Drinks/Week Comments Not Currently 6 (1 standard drink = 0.6 oz pur e alcohol) PHQ-2 Answer Date Recorded PHQ-2 Score 0 06/06/2018 Sex and Gender Information Value Date Recorded Sex Assigned at Not on file Gender Identity Not on file Sexual Orientation Not on file documented as of this encounter Nursing Notes * Mica Pruett RN - 04/09/2023 2:52 PM CST Called insurer to clarify denials reasons. Resubmitted the PA with rep on the telephone. Received approval of flakito Approved from 03/10/23-04/08/24 ATOR OPERATOR documented in this encounter Plan of Treatment Upcoming Encounters Date Type Department Care Team (Late st Contact Info) Description 09/04/2023 11:30 AM CDT Telemedicine [facility] [address] [place], [place] [address] Nima Vizcaino MD [address] [place], [place] [phone] documented as of this encounter Visit Diagnoses Not on filedocumented in this encounter Care Teams Product Marketing Executive Relationship Specialty Start Date End Date Clinician, Not Found, [place] [address] PCP - General 10/12/15 documented as of this encounter
--- OUTSIDE RECORDS SUMMARY | 2023-06-06 13:22 | XMS_ITS | Encounter Summary ---
Author Name Unknown Organization [facility] Address [address], [place] [address] Care Team Providers Care Radio Board Operator Announcer Name Role Phone Clinician, Not Found MD Primary Care Provider Un available Reason for Visit * Reason Comments Prior Authorization For Medication Wegov y 2.4 mg Encounter Details Date Type Department Care Team (Late st Contact Info) Description 03/25/2023 Telephone [facility] [address] [facility] [address] [place], [place] [phone] Serenity Barry PA-C [address] [place], [place] [phone] Prior Authorization For Medication (Wegovy 2.4 mg) Social History Tobacco Use Types Packs/Day Years [...] as of this encounter Nursing Notes * Cindy Gonzales RN - 03/25/2023 3:56 PM CST ePA initiated for Semaglutide (Wegovy) 2.4 mg. UREMENT MANAGER documented in this encounter Plan of Treatment Upcoming Encounters Date Type Department Care Team (Late st Contact Info) Description 09/04/2023 11:30 AM CDT Telemedicine [facility] [address] [place], [place] [address] Nima Vizcaino MD [address] [place], [place] [address] documented as of this encounter Visit Diagnoses Not on filedocumented in this encounter Care Teams Radio Board Operator Announcer Relationship Specialty Start Date End Date Clinician, Not Found, [place] [address] PCP - General 10/12/15 documented as of this encounter
--- OUTSIDE RECORDS SUMMARY | 2023-06-06 13:22 | XMS_ITS | Encounter Summary ---
Author Name Unknown Organization [facility] Address [address] [place] [address] Care Team Providers Care Infectious Disease Technician Name Role Phone Clinician, Not Found MD Primary Care Provider Un available Reason for Visit * Reason Comments Prior Authorization For Medication Hunter EVANS Approved Encounter Details Date Type Department Care Team (Late st Contact Info) Description 04/09/2023 Telephone [facility] [address] [facility] [address] [place] [address] Mica Pruett welding machine operator electroslag For Medication (Héctor EVANS Approved) Social History Tobacco Use Types Packs/Day Years [...] Notes * Mica Pruett RN - 04/09/2023 3:00 PM CST Spoke with Rep at [employer]. Reinitiated PA. Wegovy 2.4 mg dose approved from 03/10/23 t0 04/08/23. ENTICE INSTRUMENT TECHNICIAN documented in this encounter Plan of Treatment Upcoming Encounters Date Type Department Care Team (Late st Contact Info) Description 09/04/2023 11:30 AM CDT Telemedicine [facility] [address] [place], [place] [address] Nima Vizcaino MD [address] [place], [place] [phone] documented as of this encounter Visit Diagnoses Not on filedocumented in this encounter Care Teams Infectious Disease Technician Relationship Specialty Start Date End Date Clinician, Not Found, [place] [address] PCP - General 10/12/15 documented as of this encounter
--- OUTSIDE RECORDS SUMMARY | 2023-06-06 13:22 | XMS_ITS | Clinical Summary ---
Author Name Unknown Organization [facility] Address [address] [place] [address] Care Team Providers Care Division Order Technician Name Role Phone Clinician, Not Found MD Primary Care Provider Un available Source Comments You are receiving this document as you are listed as the primary care provider,follow-up provider, or the patient has been referred to you for consultation.This is in compliance with the Medicare andMedicaid EHR Incentive Program,which states Providers who transition their patient to another setting of careor provider of care or refers their patient to another provider of care shouldprovide summary care record for each transition of care or referral. [employer] Allergies Active Allergy Reactions Criticality Noted Date Comments Morphine Other, see comments High 11/27/2021 itching Fumaric Acid Itching 10/27/2009 Medications Medication Sig Dispensed Refills Start Date End Date Status MULTIPLE VITAMIN OR Active cholecalciferol (VITAMIND3) 50 MCG (1999) tabletIndication s:Vitamin D deficiency (HRC) Take 1 Tablet (2,000 Units) by mouth daily. Do not start before April 26, 2022. 90 Tablet 04/27/19 23 Active alfuzosin (UROXATRAL) 10 MG 24 hour release tablet Take 1 Tablet (10 mg) by mouth daily. 04/12/19 23 Active ABIRATERONE ACETATE OR Active leuprolide, 4 month, (ELIGARD) 30 MG subcutaneous injection Inject 30 mg subcutaneously once. Active semaglutide-weig ht management (WEGOVY) 2.4 MG/0.75ML pen injectionIndicat ions:Class 3 severe obesity due to excess calories with serious comorbidity and body mass index (BMI) of 40.0 to 44.9 in adult (HR) Inject 0.75 mL (2.4 mg) subcutaneously once a week. 9 mL 1 05/27/19 24 Active metFORMIN (GLUCOPHAGE) 500 MG tabletIndication s:Class 3 severe obesity due to excess calories with serious comorbidity and body mass index (BMI) of 40.0 to 44.9 in adult ([facility]) Week one, take 1 tablet by mouth daily with dinner. Week two, take one tablet with breakfast and one with dinner. Week three, take one tablet with breakfast and two with dinner. Week four and beyond, take two tablets with breakfast and two with dinner. 310 Tablet 1 05/27/19 24 025 Active Meloxicam (MOBIC) 15 MG tablet Take 1 Tablet (15 mg) by mouth daily. 04/26/19 23 024 Discontinued semaglutide-weig ht management (WEGOVY) 2.4 MG/0.75ML pen injectionIndicat ions:Morbid obesity with BMI of 40.0-44.9, adult (C) Inject 0.75 mL (2.4 mg) subcutaneously once a week. 9 mL 1 12/12/19 23 024 Discontinued(*M ed change OR same med OR reorder, new dose/directions ) Active Problems Problem Noted Date Diagnosed Date Vitamin D deficiency 05/09/2022 Prediabetes 05/09/2022 Class 3 severe obesity due t o excess calories with serious comorbidity and body mass index (BMI) of 40.0 to 44.9 in adult 12/15/2021 Brain concussion 05/09/2016 Overview: Multiple while playing football between ages 12-30; too many to count according to patient ASHLEY (obstructive sleep apnea) 03/31/2014 Overview: CPAP DJD (degenerative joint disease) of knee 010 Overweight 10/27/2009 Elevated blood pressure read ing without diagnosis of hypertension 10/27/2009 Keloid of skin 10/27/2009 Encounters Date Type Department Care Team Description 05/27/2023 2:30 PM CDT Telemedicine [facility] [address] [facility] [address] [place] [address] Nima Vizcaino MD ASHLEY (obstructive sleep apnea) (Primary Dx); Prediabetes; Class 3 severe obesity due to excess calories with serious comorbidity and body mass index (BMI) of 40.0 to 44.9 in adult ([facility]); Morbid obesity with BMI of 40.0-44.9, adult ([facility]) 04/09/2023 Telephone [facility] [place] [address] [facility] [address] [address] Mica Pruett RN Prior Authorization For Medication (Wegovy PA Approved) 04/03/2023 6:40 PM PAD MACHINE OFFBEARER E-Visit [facility] [place] [address] [place] [address] Serenity Barry PA-C Chief Comp: Prior Authorization For Medication 03/25/2023 Telephone [facility] [place] [address] [facility] [address] [address] Serenity Barry PA-C Prior Authorization For Medication (Wegovy 2.4 mg) from Last 3 Months Immunizations Name Administration Dates Next Due Chicken Pox - History of Illness 11/24/1978 HepA Adult (19+ yrs) 02/15/2016 Influenza IIV4 (Quadrivalent) 0.5mL (68369) 06/2016 MMR 02/15/2016 Tdap 03/31/2014 Typhoid (Typhim Vi, IM) 02/15/2016 Family History Medical History Relation Name Comments Coronary Artery Disease Father Hypertension Father Cancer, Breast Mother Hypertension Mother Relation Name Status Comments Father (Age 71) heart hollie ck Mother Alive Brother Alive Daughter Alive Maternal Grandfather (Age 93) Maternal Grandmother (Age 82) Paternal Grandfather (Age 92) Paternal Grandmother (Age 75) Son Alive Social History Tobacco Use Types Packs/Day Years [...] Sign Reading Time Taken Comments Blood Pressure 153/91 10/19/2018 8:42 AM CDT Pulse 69 10/19/2018 8:42 AM CDT Temperature 36.9 ??C (98.4 ??F) 10/19/2018 8:42 AM CD T Respiratory Rate 16 10/19/2018 8:42 AM CDT Oxygen Saturation 97% 10/19/2018 8:42 AM CDT Inhaled Oxygen Concentration - - Weight 148.8 kg (328 lb) 05/27/2023 8:53 AM CDT Height 188 cm (6' 2) 05/27/2023 8:53 AM CDT Body Mass Index 42.11 05/27/2023 8:53 AM CDT Plan of Treatment Upcoming Encounters Date Type Department Care Team (Late st Contact Info) Description 09/04/2023 11:30 AM CDT Telemedicine [facility] [address] [place], [place] [address] Nima Vizcaino MD [address] [place], [place] [address] Health Maintenance Due Date Last Done Comments Hep C Screening (Preventive Services) 1965 Prediabetes: HGBA1C 1965 HIV Screening (Preventive Services) 1983 HepB (1) 10/24/1986 Adult Preventive Visit 10/27/2010 10/27/2009 PSA Screening Discussion 10/27/2010 10/27/2009 FIT Colon Cancer Screening 2011 Cholesterol 10/27/2014 10/27/2009 HepA (2 of 2 - Risk 2-dose series) 08/14/2016 02/15/2016 Zoster/Shingles (1 of 2) 10/24/2017 COVID-19 Vaccine ( season) 2022 01/26/2022, 01/15/2021, 06/20/2020, Additional history exists Influenza (#1) 2022 02/15/2016 DTaP/Tdap/Td (2 - Tdap) 03/31/2024 03/31/2014 Hib Aged Out No longer eligi ble based on patient's age to complete this topic IPV (Polio) Aged Out No longer eligi ble based on patient's age to complete this topic MCV4 Aged Out No longer eligi ble based on patient's age to complete this topic Pneumococcal Aged Out No longer eligi ble based on patient's age to complete this topic Procedures Procedure Name Priority Date/Time Associated Diagnosis Comments PROSTATIC SPECIFIC ANTIGEN(SCREEN) Routine 10/27/2009 2:43 PM CDT Screening PSA (Prostate Specific Antigen) LIPID PANEL & DIRECT LDL (IF NEEDED) Routine 10/27/2009 2:43 PM CDT Screening for Lipoid Disorders from Last 3 Months or Most Recently Relevant to Health Maintenance Results * (ABNORMAL) LIPID PANEL AND DIRECT LDL(IF NEEDED) (10/27/2009 2:43 PM CDT) Cholesterol 160 0 - 199 mg/dl [facility] Triglyceride 227(H) 0 - 149 mg/dl [facility] HDL 40(L) >40 mg/dl [facility] LDL, Calc. 75 0 - 129 mg/dl [facility] Hours Fasting 4 hours [facility] 10/27/2009 2:43 PM CDT 10/27/2009 2:49 PM CDT Willard Chávez MD LAB[facility] [address] [address] * PSA (Screen) 3616 (10/27/2009 2:43 PM CDT) Prostatic Spec Ag 0.37 0.00 - 4.00 ng/ml [facility] 10/27/2009 2:43 PM CDT 10/27/2009 2:49 PM CDT Willard Chávez MD [facility]1 [email or web address] [address] [place] [address] from Last 3 Months or Most Recently Relevant to Health Maintenance Care Teams Division Order Technician Relationship Specialty Start Date End Date Clinician, Not Found, [place] [address] PCP - General 10/12/15
--- OUTSIDE RECORDS SUMMARY | 2023-06-06 13:22 | XMS_ITS | Encounter Summary ---
Author Name Unknown Organization [facility] Address [address], [place] [address] Care Team Providers Care Library Circulation Department Chief Name Role Phone Clinician, Not Found MD Primary Care Provider Un available Reason for Visit * Reason Comments Video Visit Follow-up MWM Encounter Details Date Type Department Care Team (Late st Contact Info) Description 05/27/2023 2:30 PM CDT Telemedicine [facility] [address] [facility] [address] [place], [place] [id number] Nima Vizcaino MD [address], [place] [address] ASHLEY (obstructive sleep apnea) (Primary Dx); Prediabetes; Class 3 severe obesity due to excess calories with serious comorbidity and body mass index (BMI) of 40.0 to 44.9 in adult ([facility]C); Morbid obesity with BMI of 40.0-44.9, adult ([facility]) Social History Tobacco Use Types Packs/Day Years [...] Sign Reading Time Taken Comments Blood Pressure - - Pulse - - Temperature - - Respiratory Rate - - Oxygen Saturation - - Inhaled Oxygen Concentration - - Weight 148.8 kg (328 lb) 05/27/2023 8:53 AM CDT Height 188 cm (6' 2) 05/27/2023 8:53 AM CDT Body Mass Index 42.11 05/27/2023 8:53 AM CDT documented in this encounter Patient Instructions * Patient Instructions* Nima Vizcaino MD - 05/27/2023 2:30 PM CDT Ed, It was nice meeting with you today! Here's a summary of what we discussed. Thanks for updating me on your prostate cancer treatment. With some review, Zytiga (abiraterone) isusually taken with prednisone as you are due to Zytiga's partial effect of blocking cortisol production from the adrenal glands. Hence prednisone is used to counteract this. The flip side is that exogenous prednisone (steroid) can cause weight gain, along with the hormone blockade that your prostate cancer treatment is also doing. Hence, as we discussed, during this prostate cancer treatment period, we may have to temper expectations of weight loss, and have a goal of weight maintenance or limiting weight gain. With this in mind, continue the Wegovy as we discussed, and start the metformin. There would be a slight risk with this medication combination of dropping your blood sugar, but this is minimal. However, if you do feel lightheaded, sweaty, shaky, clammy, or pass out, it potentially could be due to low blood sugar and you should consume sugar right away, such as juice, crackers, candy, etc. If it is a very serious reaction, you should go to to the ER. I am not expecting this to happen though. Continued attention to mindful eating, exercise and strength training as you are doing, and managing stress and getting good sleep at night. See you in 3 months. Raza Vizcaino MD [facility] documented in this encounter Progress Notes * Nima Vizcaino MD - 05/27/2023 2:30 PM CDT MEDICAL WEIGHT MANAGEMENT PROGRESS NOTE Chief Complaint Ed Sha is a 57 y.o. male who was referred/seeks to treat their obesity- associated medical conditions (ASHLEY, Prediabetes, Chronic back pain, and weight- bearing joint pain) by aggressive management of weight. Also w h/o multiple concussions, elevated BP w/o HTN, Vit D deficiency. Interim History - Last seen by PADoyleC/Bariatrician: 12/30/22 RP. - Working out 3 days a week. - Working on changing eating habits. Has cravings for sweets. - On Wegovy 2.4mg weekly. - Prostate cancer dx'd 2022 - had radiation treatment. Treatment through [facility]. He is on abiraterone & Eligard - both hormone blockers. Along with the abiraterone he must take prednisone. Hehas gained weight most recently, likely due to the prednisone and hormonal changes. Patient's weight history is as follows: Bariatric Weight History and Calculations Weight History Age at Onset of Obesity: 37 Highest Adult Weight: 350 lb Preferred Weight: 250 lb Lowest Adult Weight: 235 lb At what weight would you not be disappointed?: 260 lb Starting Weight: 340 lb Current Weight: 328 lb Height (in): 74 Weight Calculations Excess Weight: 157 lb Current Weight Loss: 12 lb Goal Weight: 183 lb Starting BMI: 43.74 Percent Exess Weight Loss: 8 Current BMI: 42.2 Percent Totoal Body Weight Loss: 4 Weight History Wt Readings from Last 3 Encounters: 05/27/23 (!) 328 lb (555144 g) 12/29/22 (!) 317 lb (606804 g) 05/09/22 (!) 320 lb (155189 g) Weight Management Center Assessment: Updating Your Care Team 1. Have you been working on any lifestyle goals since your last visit?: Yes 4. How many hours of sleep to you get per night?: 6-7 hours 5. What physical activity are you doing?: Eliptical 7. Do you drink sugar-sweetened beverages (regular soda or sweetened coffee or tea)?: No 8. What would you like to discuss today?: Weight loss progress and alternatives Post-surgical information: 5. Does the patient snack?: Neg ROS Patient is experiencing the following symptoms/problems: Joint Pain, Increased Hunger Medications Current Outpatient Medications Medication Instructions ABIRATERONE ACETATE OR No dose, route, or frequency recorded. alfuzosin (UROXATRAL) 10 mg, Oral, DAILY cholecalciferol (VITAMIND3) 2,000 Units, Oral, DAILY leuprolide (4 month) (ELIGARD) 30 mg, Subcutaneous, ONCE Meloxicam (MOBIC) 15 mg, Oral, DAILY metFORMIN (GLUCOPHAGE) 500 MG tablet Week one, take 1 tablet by mouth daily with dinner. Week two, take one tablet with breakfast and one with dinner. Week three, take one tablet with breakfast and two with dinner. Week four and beyond, take two tablets with breakfast and two with dinner. MULTIPLE VITAMIN OR No dose, route, or frequency recorded. Wegovy 2.4 mg, Subcutaneous, WEEKLY Physical Exam VITAL SIGNS: Ht 6' 2 (188 cm) Wt (!) 328 lb (569631 g) BMI 42.11 kg/m?? General/constitutional: Alert in no acute distress. Head: Normocephalic, without obvious abnormality, atraumatic. normal hair growth Lungs: Respirations unlabored. Psychiatric: Oriented x 3. Affect appropriate. No evidence of overt anxiety or depression. ASSESSMENT/PLAN We will continue to treat the following obesity-associated medical conditions and conditions exacerbated by or contributing to weight gain by aggressive management of weight: ICD-10-CM 1. ASHLEY (obstructive sleep apnea) G47.33 2. Prediabetes R73.03 3. Class 3 severe obesity due to excess calories with serious comorbidity and body mass index (BMI)of 40.0 to 44.9 in adult ([facility]) E66.01 semaglutide-weight management (WEGOVY) 2.4 MG/0.75ML pen injection Z68.41 metFORMIN (GLUCOPHAGE) 500 MG tablet 4. Morbid obesity with BMI of 40.0-44.9, adult ([facility]) E66.01 Z68.41 Plan for management includes the following: Nutrition / Exercise / Lifestyle - Discussed mindful eating, protein. - Last met w nutrition: 12/20/21 ; Meet w nutrition: No - Continue exercise, strength training as able MWM - Continue following a reduced calorie diet, achieving 150 min of physical activity per week. We will continue to work together to evaluate for opportunities to stop or lower the dose of weight-promoting medications. - Current medications w potential side effect of weight gain: Eligard (leuprolide), Zytiga (abiraterone), and prednisone (takes with abiraterone), all for prostate cancer treatment. - Wegovy 2.4mg weekly continued - Metformin restarted (he took prior to starting GLP-1) - Discussed w Ed that his hormone treatment & prednisone will most likely confound any possibleweight loss with MWM currently, but the medications may help keep weight stable over time, or limitweight gain. He is understanding. - Discussed slight chance of severe hypoglycemic reaction with hormone blockers and antidiabetic agents, but unlikely. - Conversion to Zepbound right now not a great option given inconsistent availability of all doses.Consider in future. - Other medication options (and ) - Phentermine - caution elevated BP - Topiramate - he is concerned about brain fog - Bupropion - - Naltrexone - - other GLP-1/dual RA - consider in future based on affordability/availability Other - n/a Follow up: in 3 months. Raza Vizcaino MD [facility] This service was provided via telehealth and conducted using a synchronous audiovideo link. Clinician located at: Clinic Patient located at: Home documented in this encounter Nursing Notes * Domenico Dolan MA - 05/27/2023 2:30 PM CDT Patient has completed mobile check in process. Last seen on 12/30/22 with recorded weight of 317 lbs. Weight History: Bariatric Weight History and Calculations Weight History Age at Onset of Obesity: 37 Highest Adult Weight: 350 lb Preferred Weight: 250 lb Lowest Adult Weight: 235 lb At what weight would you not be disappointed?: 260 lb Starting Weight: 340 lb Current Weight: 328 lb Height (in): 74 Weight Calculations Excess Weight: 157 lb Current Weight Loss: 12 lb Goal Weight: 183 lb Starting BMI: 43.74 Percent Exess Weight Loss: 8 Current BMI: 42.2 Percent Totoal Body Weight Loss: 4 Measurements Do you have a scale? YES - 328 lb. Do you have a BP cuff? NO Eating patterns Patient is experiencing the following symptoms/problems: Joint Pain, Increased Hunger Medications: reviewed by patient. Compliance: YES Side effects: NO Patient would like to discuss: Weight loss progress and alternatives Domenico Dolan MA 8:54 AM 05/27/2023 documented in this encounter Plan of Treatment Upcoming Encounters Date Type Department Care Team (Late st Contact Info) Description 09/04/2023 11:30 AM CDT Telemedicine [facility] [address] [facility] [place], [place] [address] Nima Vizcaino MD [address] [place], [place] [phone] documented as of this encounter Visit Diagnoses Diagnosis ASHLEY (obstructive sleep apnea)- Primary Obstructive sleep apnea (adult) (pediatric) Prediabetes Other abnormal glucose Class 3 severe obesity due to excess calories with serious comorbidity and body mass index (BMI) of 40.0 to 44.9 in adult ([facility]) Morbid obesity with BMI of 40.0-44.9, adult ([facility]) documented in this encounter Care Teams Library Circulation Department Chief Relationship Specialty Start Date End Date Clinician, Not Found, [place] [address] PCP - General 10/12/15 documented as of this encounter
[2023-06-06 13:39] LABS: Albumin* 4.6 g/dL (3.3-5.0); Chloride* 105 mmol/L (96-114)
[2023-06-06 13:40] LABS: Potassium* 4.5 mmol/L (3.6-5.1); Sodium* 140 mmol/L (135-149)
[2023-06-06 13:42] LABS: Alanine Aminotransferase* 66 U/L (4-50); Alkaline Phosphatase* 87 U/L (40-150); Anion Gap 8 mEq/L (7-15); Aspartate Amino Transferase* 38 U/L (12-35); Bilirubin Total* 0.6 mg/dL (0.1-1.5); Blood Urea Nitrogen* 19 mg/dL (7-30); Carbon Dioxide* 27 mmol/L (20-32); Estimated Glomerular Filt Rate 89 ml/min; Glucose* 96 mg/dL (60-115); Total Protein* 7.4 g/dL (6.0-8.3)
== END 2023-06-06 13:12 | disposition home or self-care (01) ==
LOC: NPINS 13:11
PROVIDERS: PCP Family Medicine; Visit Provider Urology
DX: C61 Malignant neoplasm of prostate (principal)
CPT/HCPCS: 80053

== ENCOUNTER 2023-06-20 12:22 | Outpatient (REF) | payer BC, SELFPAY ==
--- OUTSIDE RECORDS SUMMARY | 2023-06-20 12:25 | XMS_ITS | Clinical Summary ---
Author Name Unknown Organization [facility] Address [place], [place] [address] Care Team Providers Care Call Center Operations Manager Name Role Phone Roverto Morley MD Primary Care Provider [phone] Encounters Date Type Department Care Team Description 04/04/2023 10:03 AM CUTTER AND EDGE TRIMMER - 04/04/2023 11:59 PM CUTTER AND EDGE TRIMMER Hospital Encounter [facility] [address] [place] [address] Ramona Barrett PA Prostate cancer (HC); Nontoxic [...] Comments US THYROID/PARATHYROID Routine 04/04/2023 12:17 PM CUTTER AND EDGE TRIMMER Prostate cancer (HC) Nontoxic single thyroid nodule from Last 3 Months Results * US THYROID/PARATHYROID (04/04/2023 12:17 PM CUTTER AND EDGE TRIMMER) Anatomical Region Laterality Modality THYROID Ultrasound Narrative 04/04/2023 3:49 PM CUTTER AND EDGE TRIMMER Limited US Thyroid 04/04/2023 Darien Dalton [id number] Indication: Prostate cancer, thyroid nodule FINDINGS: [...] months. Batsheva Ly, ACNP [facility] Ramona ISLAS from Last 3 Months Care Teams Call Center Operations Manager Relationship Specialty Start Date End Date Roverto Morley MD [address] [place] [address] PCP - General Family Practice 02/22/22
--- OUTSIDE RECORDS SUMMARY | 2023-06-20 12:25 | XMS_ITS | Clinical Summary ---
Author Name Unknown Organization [facility] Address [address] [place] [address] Care Team Providers Care Ground Service Equipment Mechanic Name Role Phone Roverto Morley MD Primary Care Provider [phone] Allergies Active Allergy Reactions Criticality Noted Date Comments Fumaric Acid Itching 10/27/2009 Morphine Itching,Unknown,Other (See Comments) High 11/27/2021 itching Medications No known medications Encounters Date Type Department Care Team Description 05/02/2023 8:25 PM CDT - 05/02/2023 9:33 PM CDT Emergency [facility] Emergency Dept [address] [place] [address] Slim Cali MD Burns, Bradley Joseph, DO [...] 2022 01/26/2022, 01/15/2021, 06/20/2020, Additional history exists PHQ-2 (once per calendar year) 2023 INFLUENZA VACCINE (Season Ended) 2023 02/15/2016 DTAP/TDAP/TD IMMUNIZATION (2 - Td or Tdap) [...] Tube (05/02/2023 8:35 PM CDT) Hold Specimen [facility] 05/02/2023 9:46 PM CDT RH LABORATORY Blood VENOUS LINE / Unknown Venipuncture / Unknown 05/02/2023 8:35 PM CDT 05/02/2023 8:41 PM CDT Slim Cali MD LAB - BLOOD ORDERABL ES LABORATORY [facility] Acute Care Lab [address] [facility] Lab (1st floor, no room number) [place] [address] * Extra Green Top ([place] Heparin) Tube (05/02/2023 8:35 PM CDT) Hold Specimen [facility] 05/02/2023 9:46 PM CDT RH LABORATORY Blood VENOUS LINE / Unknown Venipuncture / Unknown 05/02/2023 8:35 PM CDT 05/02/2023 8:41 PM CDT Slim Cali MD LAB - BLOOD ORDERABL ES LABORATORY [facility] Acute Care Lab [address] Lab (1st floor, no room number) [place] [phone] * Extra Red Top Tube (05/02/2023 8:35 PM CDT) Hold Specimen [facility] 05/02/2023 9:46 PM CDT RH LABORATORY Blood VENOUS LINE / Unknown Venipuncture / Unknown 05/02/2023 8:35 PM CDT 05/02/2023 8:41 PM CDT Slim Cali MD LAB - BLOOD ORDERABL ES [facility] Care Lab [address] Lab (1st floor, no room number) [place] [phone] [place] [address] * Extra Blue Top Tube (05/02/2023 8:35 PM CDT) Hold Specimen [facility] 05/02/2023 9:46 PM CDT RH LABORATORY Blood VENOUS LINE / Unknown Venipuncture / Unknown 05/02/2023 8:35 PM CDT 05/02/2023 8:41 PM CDT Slim Cali MD LAB - BLOOD ORDERABL ES LABORATORY [facility] Care Lab [address] Lab (1st floor, no room number) [place] [phone] [place] [address] * CBC with platelets and differential (05/02/2023 [...] LAB - BLOOD DRU ABEL RH LABORATORY [facility] Acute Care Lab [address] Lab (1st floor, no room number) [place] [address], [facility] * (ABNORMAL) Basic metabolic panel (05/02/2023 8:35 PM CDT) [facility] Sodium 141 135 - 145 mmol/L [...] Vineet Houston DO LAB - BLOOD DRU ROMAN [facility] Acute Care Lab [address] [facility] Lab (1st floor, no room number) [place] [address], [facility] * EKG 12-lead, tracing only (05/02/2023 8:33 PM CDT) Only the most recent of2 resultswithin the time period is included. Systolic Blood Pressure mmHg RADIOLOGY RESULTS Diastolic Blood Pressure mmHg RADIOLOGY RESULTS Ventricular Rate 106 BPM RAD IOLOGY RESULTS Atrial Rate 106 BPM RADIOLOG Y RESULTS MA Interval 178 ms RADIOLOG Y RESULTS QRS Duration 86 ms RADIOLO GY RESULTS QT 344 ms RADIOLOGY RESULTS QTc 456 ms RADIOLOGY RESULTS P [place] 63 degrees RADIOLOGY RESULTS R AXIS 43 degrees RADIOLOGY RESULTS T [place] 29 degrees RADIOLOGY RESULTS Interpretation ECG Sinus tachycardia Otherwise normal ECG When compared with ECG of 02-MAY-2023 20:28, (unconfirmed) Fusion complexes are no longer Present Premature ventricular complexes are no longer Present Vent. rate has decreased BY ??58 BPM RADIOLOGY RESULTS 05/02/2023 8:33 PM CDT 05/02/2023 9:59 PM CDT Vineet Houston DO ECG ORDERABLES RADIOLOGY RESULTS from Last 3 Months Care Teams Ground Service Equipment Mechanic Relationship Specialty Start Date End Date Roverto Morley MD [facility] [address] [place] [id number] PCP - General Family Medicine 07/05/22
--- OUTSIDE RECORDS SUMMARY | 2023-06-20 12:26 | XMS_ITS | Referral Summary ---
Author Name Unknown Organization [facility] Address [address] [place] [address] Care Team Providers Care Snuff Drier Name Role Phone Roverto Morley MD Primary Care Provider [phone] Encounters Date Type Department Care Team Description 05/02/2023 Travel 05/02/2023 8:25 PM CDT - 05/02/2023 9:33 PM CDT Emergency [facility] Emergency Dept [address] [place] [address] Slim Cali MD Burns, Bradley Joseph, SVT [...] Tube (05/02/2023 8:35 PM CDT) Hold Specimen [facility] 05/02/2023 9:46 PM CDT LABORATORY Blood VENOUS LINE / Unknown Venipuncture / Unknown 05/02/2023 8:35 PM CDT 05/02/2023 8:41 PM CDT Slim Cali MD LAB - BLOOD ORDERABL ES LABORATORY [facility] Acute Care Lab [address] [facility] Lab (1st floor, no room number) [place] [address] * Extra Green Top ([place] Heparin) Tube (05/02/2023 8:35 PM CDT) Hold Specimen [facility] 05/02/2023 9:46 PM CDT RH LABORATORY Blood VENOUS LINE / Unknown Venipuncture / Unknown 05/02/2023 8:35 PM CDT 05/02/2023 8:41 PM CDT Slim Cali MD LAB - BLOOD ORDERABL ES [facility] Lab [address] Lab (1st floor, no room number) [place] [address] * Extra Red Top Tube (05/02/2023 8:35 PM CDT) Hold Specimen [facility] 05/02/2023 9:46 PM CDT RH LABORATORY Blood VENOUS LINE / Unknown Venipuncture / Unknown 05/02/2023 8:35 PM CDT 05/02/2023 8:41 PM CDT Slim Cali MD LAB - BLOOD ORDERABL ES [facility] Lab [address] Lab (1st floor, no room number) [place] [address] * Extra Blue Top Tube (05/02/2023 8:35 PM CDT) Hold Specimen [facility] 05/02/2023 9:46 PM CDT RH LABORATORY Blood VENOUS LINE / Unknown Venipuncture / Unknown 05/02/2023 8:35 PM CDT 05/02/2023 8:41 PM CDT Slim Cali MD LAB - BLOOD ORDERABL ES [facility] Acute Care Lab [address] Lab (1st floor, no room number) [place] [phone] * CBC with platelets and differential [...] LAB - BLOOD ORDE ABEL RH LABORATORY [facility] Acute Care Lab [address] [facility] Lab (1st floor, no room number) [place] [address] * (ABNORMAL) Basic metabolic panel [...] DO LAB - BLOOD ORDE RABLES LABORATORY [facility] Acute Care Lab [address] Lab (1st floor, no room number) [place] [address], [facility] * EKG 12-lead, tracing only (05/02/2023 8:33 PM CDT) Only the most recent of2 resultswithin the time period is included. Systolic Blood Pressure mmHg RADIOLOGY RESULTS Diastolic Blood Pressure mmHg RADIOLOGY RESULTS Ventricular Rate 106 BPM RAD IOLOGY RESULTS Atrial Rate 106 BPM RADIOLOG Y RESULTS DC Interval 178 ms RADIOLOG Y RESULTS QRS Duration 86 ms RADIOLO GY RESULTS QT 344 ms RADIOLOGY RESULTS QTc 456 ms RADIOLOGY RESULTS P [place] 63 degrees RADIOLOGY RESULTS R AXIS 43 degrees RADIOLOGY RESULTS T [place] 29 degrees RADIOLOGY RESULTS Interpretation ECG Sinus tachycardia Otherwise normal ECG When compared with ECG of 02-MAY-2023 20:28, (unconfirmed) Fusion complexes are no longer Present Premature ventricular complexes are no longer Present Vent. rate has decreased BY ??58 BPM RADIOLOGY RESULTS 05/02/2023 8:33 PM CDT 05/02/2023 9:59 PM CDT Vineet Houston DO ECG ORDERABLES RADIOLOGY RESULTS from Last 3 Months Care Teams Snuff Drier Relationship Specialty Start Date End Date Roverto Morley MD [facility] [address] [address] PCP - General Family Medicine 07/05/22
--- OUTSIDE RECORDS SUMMARY | 2023-06-20 12:26 | XMS_ITS | Continuity of Care Document ---
Author Name Unknown Address [address] [place] [address] Phone [phone] Organization [facility] Address [address] [place] [address] Care Team Providers Care Cryptozoologist Name Role Phone [facility] Primary Care Provider [phone] Assessment Encounter Date Assessment Date Assessment LastModified by Organization Details LastModified Time 06/19/2023 06/19/2023 57M with metastatic prostate cancer= (aB6B9S3/1, Robert 4+5=9, PSA 28.4) s/p RT to primary tumor and LN. On ADT with eligard and Abiraterone + Prednisone ( started 05/23/23). Noticeable increase in fatigue since starting kye/pred, possible increase in hot flashes. Not available 06/19/2023 14:48:07 Plan of Treatment Reminders Order Date Submit Date Provider Last Modified By Organization Details Last Modified Time Details Appointments LAB BLOOD DRAW 2023 08:20A M [facility] Not available Not available Not available ESTABLISH ED 30 2023 08:30A M Constantine lynch MD, PHD Not available Not available Not available Lab None recorded. Referral None recorded. Procedures None recorded. Surgeries None recorded. Imaging None recorded. Medication Orders None recorded. Patient TargetsNo targets recorded. Patient Instructions Encounter Date Encounter Id Patient Instructions Last Modified By Organization Details Last Modified Time 06/19/2023 [id number] 45 minutes total time spent reviewing records, speaking with patient and writing note. Not available 06/19/2023 14:57:46 Reason for Referral Referring Physician: Epi Rudd, Urology, Encounter Date: 07/24/2022 Problems Name Status Onset Date Resolution Date Notes Provider Name and Address Organization Details Recorded Time Malignant tumor of prostate Active 09/24/19 23 Britney Coy perkins [facility] 09/23/2022 14:52:31 Metastatic malignant neoplasm Active 12/13/19 23 Constantine bernardo MD, PHD [address] [place] [address], [phone], [facility] 12/12/2022 18:06:08 Lower urinary tract symptoms due to benign prostatic hypertrophy Active 12/13/19 23 Constantine bernardo MD, PHD [address] [place] [address], [phone], [facility] 12/12/2022 18:06:15 Thyroid nodule Active 02/14/19 24 Constantine bernardo MD, PHD [address] [place] [address], [phone], [facility] 02/14/2023 17:42:33 Reduced libido Active 05/23/19 24 Constantine bernardo MD, PHD [address] [place] [address], [phone], [facility] 05/23/2023 11:23:02 Metastatic malignant neoplasm to bone Active 06/19/19 24 JAKE MARTÍNEZ [address], [address], [facility] 06/19/2023 14:41:38 Male hot flash Active 06/19/19 24 JAKE MARTÍNEZ [address], [phone], [facility] 06/19/2023 14:41:40 Problem Notes None recorded. Procedures Surgical History Date Name Laterality Status Provider Name and Address Organization Details Recorded Time 4 COMPLEX VISIT completed Constantine Thorne MD, PHD [address] [place] [address], [phone], [facility] 05/23/2023 11:22:40 4 OFFICE MACHINE EMBOSSOGRAPH OPERATOR/blood draw completed Adeola Montgomeryo null, [facility] 05/20/2023 21:33:17 4 OFFICE MACHINE EMBOSSOGRAPH OPERATOR/blood draw completed Emeli Montanez null, [facility] 02/20/2023 11:09:17 4 COMPLEX VISIT completed Constantine Thorne MD, PHD [address], [place], [address], [facility] 02/14/2023 18:41:08 4 OFFICE MACHINE EMBOSSOGRAPH OPERATOR/blood draw completed Adeola Montgomeryo null, [facility] 02/14/2023 17:04:01 3 OFFICE MACHINE EMBOSSOGRAPH OPERATOR/blood draw completed Adeola Martinez null, [facility] 12/12/2022 16:56:45 3 Magalyd completed Britney Cespedes null, [facility] 10/24/2022 09:27:28 3 Firmagon completed Britney Cespedes null, [facility] 09/23/2022 15:02:16 3 Prostate Biopsy Procedure completed Epi Rudd MD [address] [place] [address],[address], [place], [address], [facility] 06/14/2022 10:32:09 3 Rocephin/Ceftr iaxone completed Serenity Lora null, [facility] 06/14/2022 10:13:42 3 Bladder Scan completed Serenity Lora null, [facility] 04/18/2022 12:43:19 3 Blood Draw/OFFICE MACHINE EMBOSSOGRAPH OPERATOR/PSA RESULTS completed Serenity Lora null, [facility] 04/18/2022 12:35:42 2 Bladder Scan completed Epi Rudd MD [address] [place] [address],[address], [place], [address], [facility] 01/14/2022 11:44:15 procedure on knee completed Epi Rudd MD [address] [place] [address],[address], [place], [address], [facility] 01/14/2022 11:39:04 Imaging Results None recorded. Procedure Notes None recorded. Medical Equipment None Reported. Allergies Allergen ID Allergen Name Allergen Category Reaction Reaction Severity Criticality Documentation Date Start Date Code Code System Note Provider Name and Address Organization Details Recorded Time 642565 morphine medicatio n Not available Not available Not available 01/14/2022 7052 RxNorm Epi Rudd MD [address] [place] [address], [phone] [place] [address] Urology 11:38:04 Medications Name Sig Start Date Stop Date Status Note LastModified by Organization Details LastModified Time metformin 500 mg tablet PLEASE SEE ATTACHED FOR DETAILED DIRECTION S active Not Available Not Available No t Available meloxicam 15 mg tablet TAKE 1 TABLET BY MOUTH EVERY DAY active Not Available Not Available No t Available prednisone 5 mg tablet Take 1 tablet twice a day by oral route. active Not Available Not Available No t Available ceftriaxone 1 gram solution for injection Take 1 g by injection route. 06/19 completed Not Available Not Available Not Available famciclovir 500 mg tablet active Not Available Not Available Not Available tamsulosin 0.4 mg capsule TAKE 1 CAPSULE BY MOUTH EVERY DAY active Not Available Not Available No t Available levofloxaci n 500 mg tablet TAKE 1 TABLET EVERY 24 HOURS BY ORAL ROUTE active Not Available Not Available No t Available cholecalcif jethro (vitamin D3) 125 mcg (5,000 unit) capsule TAKE 1 CAP ORALLY EVERY DAY NO FURTHER REFILLS UNTIL SEEN IN CLINIC. active Not Available Not Available No t Available Eligard 22.5 mg (3 month) subcutaneou s syringe Inject 22.5 mg by subcutane ous route. 2023 active Not Available Not Available Not Avai lable alfuzosin ER 10 mg tablet,exte nded release 24 hr TAKE 1 TABLET BY MOUTH EVERY DAY active Not Available Not Available No t Available Glucosamine active Not Available Not A vailable Not Available multivitami n active Not Available Not Available Not Available GaviLyte-G 236 gram-22.74 gram-6.74 gram-5.86 gram oral solution PLEASE SEE ATTACHED FOR DETAILED DIRECTION S 01/14 completed Not Available Not Available Not Available abiraterone 250 mg tablet Take 4 tablets every day by oral route, for Prostate cancer. active Not Available Not Available No t Available Firmagon kit with diluent syringe 120 mg subcutaneou s solution Inject 120 mg by subcutane ous route. 2022 active Not Available Not Available Not Avai lable Firmagon kit with diluent syringe 80 mg subcutaneou s solution Inject 80 mg by subcutane ous route. 2022 active Not Available Not Available Not Avai lable Saxenda 3 mg/0.5 mL (18 mg/3 mL) subcutaneou s pen injector INJECT 0.3 ML (1.8 MG) SUBCUTANE OUSLY DAILY FOR 21 DAYS. active Not Available Not Available No t Available BD Celeste 2nd Gen Pen Needle 32 gauge x 5/32 USE 1 DAILY WITH PEN INJECTOR DEVICE TO INJECT UNDER THE SKIN. EACH NEEDLE IS FOR 1 TIME USE ONLY active Not Available Not Available No t Available Wegovy 2.4 mg/0.75 mL subcutaneou s pen injector INJECT 0.75 ML (2.4 MG) SUBCUTANE OUSLY ONCE A WEEK. active Not Available Not Available No t Available Wegovy 1.7 mg/0.75 mL subcutaneou s pen injector PLEASE SEE ATTACHED FOR DETAILED DIRECTION S active Not Available Not Available No t Available Wegovy 0.25 mg/0.5 mL subcutaneou s pen injector INJECT 0.5 ML (0.25 MG) SUBCUTANE OUSLY ONCE A WEEK FOR 28 DAYS. ($1,590 - NOT COVERED) active Not Available Not Available No t Available Wegovy 0.5 mg/0.5 mL subcutaneou s pen injector active Not Available Not Available Not Available Vitals None Recorded Social History Question Answer Notes LastModified by Organizat ion Details LastModified Time Tobacco Smoking Status Former Smoker Epi Rudd MD [address] [facility], [place], [address], [facility] 01/14/2022 11:38:52 What Is Your Level Of Alcohol Consumption? None Information not available 01/14/2022 What Was The Date Of Your Most Recent Tobacco Screening? 05/23/2023 [email or web address] Information not available 05/23/2023 Sex: Male Functional Status None recorded. Mental Status None recorded. Family History Relationship Description Onset Age of this Age Resolved Age Notes Mother Family history of ca ncer of colon Medical History Condition Response Other N High Blood Pressure N Kidney Stones N Lung Disease N Depression N GERD/Acid Reflux N Sexually Transmitted Infection N Cancer N High Cholesterol N Diabetes N Bleeding Disorder N Heart Disease N Past Encounters Encounter ID Performer Location Encounter Start Date Encounter Closed Date Diagnosis/Indication Diagnosis SNOMED-CT Code [id number] Constantine watson MD, PHD [facility] [address] [place] [address] 05/23/2023 09:57:22 05/26/2023 11:23:54 Malignant tumor of prostate [id number] Metastatic malignant neoplasm 718851708 Lower urin andrey tract symptoms due to benign prostatic hypertrophy [id number] Thyroid nodule 041259546 Reduced libido 5138343 [id number] JAKE MARTÍNEZ, [facility]- [facility] [address] [place] [address] 06/19/2023 14:06:14 06/19/2023 15:02:16 Malignant tumor of prostate 086853628 Metastatic malignant neoplasm to bone 42646742 Male hot flash [id number] [id number] Health Concerns Section Related Observation LastModified by Organization Detai ls LastModified Time None Recorded Concern Status LastModified by Organization Details LastModified Time None Recorded Payers Encounter Date Sequence Insurance Name Policy Number Policy Hernandez Covered Member ID Hernandez Member ID Guarantor Name 06/19/2023 1 [place] [id number] Darien Dalton [id number] Darien Dalton Notes Date Note Type Note Provider Name and Address Organization Details Recorded Time 06/19/2023 text/html HPI Notes: Prior to conducting our telephone visit, the patient was apprised of the risks, benefits and alternatives to telephone visits including but not limited to poor audio quality, interrupted visits due to technological limitations, delays in medical evaluation and treatment due to deficiencies or failures of equipment, failure of security protocols resulting in a breach of privacy of personal medical information and a lack of access to complete medical records resulting in not fully informed. It was not possible for the patient to sign the privacy regulations, HIPAA release and assignment of benefits forms. The patient was given the opportunity to ask questions about these policies and gave verbal acknowledgement and approval of these policies as well as to hold this meeting by telephone. Lastly, the patient agreed to allowing their medication history to be pulled from a national pharmacy database to facilitate and coordinate their care. 57M with metastatic prostate cancer= (tW4R7W6/1, Robert 4+5=9, PSA 28.4) Completed RT to prostate, pelvic LN and pelvic bony lesions (11/21/22) with Dr Quiñones. On ADT with Eligard and Abiraterone + Prednisone ED: low libido; not interested in PDE5i, also low ejaculate ADT: moderate hot flashes, moderate fatigue, concerned about weight gain : alfuzosin and tamsulosin; + urgency, occasional difficulty emptying GI: denies Imaging: CT A/P (07/09/22): right pelvic LN up to 4.6 cm, left LN up to 1.1 cm, small sclerotic lesion right iliac bone BS (07/09/22): no mets PSMA-PET (01/14/23): uptake in prostate, right ext iliac LN and right iliac bone; also possible paraaortic nodes Genetics: [facility] one (01/22/23: MS- equivocal, TMB 2 Muts/Mb, no reportable genomic alterations RT 10/09/22-11/21/22: 7000 cGy (Nuria) ADT start: 08/23/22; Firmagon Last ADT: 03/06/23: Eligard 22.5 mg Prostate biopsy (06/14/22): 01/21 cores up to Gl 4+5=9 PSA Results 11/27/21: 11.5 04/18/22: 28.4 12/12/22: 0.53 02/14/23: 0.17 05/23/23: <0.04 PMH: obesity PSH: no abd surgery SocHx: former [employer] Occ: director of Tech at [employer] Tob: EtOH: FamHx: workshop manager- brother; he thinks might be environmental Rectal ca- mother 80s JAKE MARTÍNEZ, [facility] [address], [place], [address], [facility] [place] [facility] 06/19/2023 16:00:59
--- OUTSIDE RECORDS SUMMARY | 2023-06-20 12:26 | XMS_ITS | Encounter Summary ---
Author Name Unknown Organization [facility] Address [address] [place] [address] Care Team Providers Care Rn Anesthesiology Name Role Phone Roverto Morley MD Primary Care Provider [phone] Encounter Details Date Type Department Care Team [...] on filedocumented in this encounter Care Teams Rn Anesthesiology Relationship Specialty Start Date End Date Roverto Morley MD [facility] [address] [address] PCP - General Family Medicine 07/05/22 documented as of this encounter
--- OUTSIDE RECORDS SUMMARY | 2023-06-20 12:26 | XMS_ITS | Encounter Summary ---
Author Name Unknown Organization [facility] Address [address] [place] [address] Care Team Providers Care Saw Operator Name Role Phone Clinician, Not Found MD Primary Care Provider Un available Reason for Visit * Reason Comments Prior Authorization For Medication Hunter EVANS Approved Encounter Details Date Type Department Care Team (Late st Contact Info) Description 04/09/2023 Telephone [facility] [address] [facility] [address] [place] [address] Mica Pruett senior product marketing manager For Medication (Héctor EVANS Approved) Social History [...] 3:00 PM CST Spoke with Rep at [facility]. Reinitiated PA. Wegovy 2.4 mg dose approved from 03/10/23 t0 04/08/23. CUTTER APPRENTICE documented in this encounter Plan of Treatment Upcoming Encounters Date Type Department Care Team (Late st Contact Info) Description 09/04/2023 11:30 AM CDT Telemedicine [facility] [address] [place], [place] [address] Nima Vizcaino MD [address] [place], [place] [address] documented as of this encounter Visit Diagnoses Not on filedocumented in this encounter Care Teams Saw Operator Relationship Specialty Start Date End Date Clinician, Not Found, [place] [address] PCP - General 10/12/15 documented as of this encounter
--- OUTSIDE RECORDS SUMMARY | 2023-06-20 12:26 | XMS_ITS | Clinical Summary ---
Author Name Unknown Organization [facility] Address [address] [place] [address] Care Team Providers Care Thermostat Mechanic Name Role Phone Clinician, Not Found MD [...] for each transition of care or referral. Zvooq Allergies Active Allergy Reactions Criticality Noted Date [...] (BMI) of 40.0 to 44.9 in adult ([facility]) Week one, take 1 tablet by mouth [...] Team Description 05/27/2023 2:30 PM CDT Telemedicine [facility] [address] [facility] [address] [facility] [address] [place] [address] Nima Vizcaino MD ASHLEY (obstructive sleep apnea) (Primary Dx); Prediabetes; Class 3 severe obesity due to excess calories with serious comorbidity and body mass index (BMI) of 40.0 to 44.9 in adult ([facility]); Morbid obesity with BMI of 40.0-44.9, adult ([facility]) 04/09/2023 Telephone [facility] [address] [facility] [address] [address] Mica Pruett RN Prior Authorization For Medication (Wegovy PA Approved) 04/03/2023 6:40 PM SPEECH THERAPY ASSISTANT E-Visit [facility] [place] [address] [place] [address] Serenity Barry PA-C Chief Comp: Prior Authorization For Medication 03/25/2023 Telephone [facility] [place] [id number] [facility] [address] [address] Serenity Barry PA-C Prior Authorization For Medication (Wegovy 2.4 mg) from Last 3 Months Immunizations Name Administration Dates Next Due Chicken Pox - History of Illness 11/24/1978 HepA Adult (19+ yrs) 02/15/2016 Influenza IIV4 (Quadrivalent) 0.5mL (39407) 06/2016 MMR 02/15/2016 Tdap 03/31/2014 Typhoid (Typhim [...] Info) Description 09/04/2023 11:30 AM CDT Telemedicine [facility] [address] [place], [place] [address] Nima Vizcaino MD [address] [place], [place] [address] Health Maintenance Due Date Last Done Comments [...] 01/26/2022, 01/15/2021, 06/20/2020, Additional history exists Influenza (Season Ended) 2023 02/15/2016 DTaP/Tdap/Td (2 - Tdap) 03/31/2024 03/31/2014 [...] CDT) Cholesterol 160 0 - 199 mg/dl [facility] Triglyceride 227(H) 0 - 149 mg/dl [facility] HDL 40(L) >40 mg/dl [facility] LDL, Calc. 75 0 - 129 mg/dl [facility] Hours Fasting 4 hours [facility] 10/27/2009 2:43 PM CDT 10/27/2009 2:49 PM CDT Willard Chávez MD [facility] [address] [address] * PSA (Screen) 3616 (10/27/2009 2:43 PM CDT) Prostatic Spec Ag 0.37 0.00 - 4.00 ng/ml [facility] 10/27/2009 2:43 PM CDT 10/27/2009 2:49 PM CDT Willard Chávez MD [facility] [address] [place] [address] from Last 3 Months or Most Recently Relevant to Health Maintenance Care Teams Thermostat Mechanic Relationship Specialty Start Date End Date Clinician, Not Found, [place] [address] PCP - General 10/12/15
--- OUTSIDE RECORDS SUMMARY | 2023-06-20 12:26 | XMS_ITS | Encounter Summary ---
Author Name Unknown Organization [facility] Address [address] [address] Care Team Providers Care Carrier Washer Name Role Phone Clinician, Not Found MD Primary Care Provider Un available Reason for Visit * Reason Comments Prior Authorization For Medication Wegov y 2.4 mg -approved Encounter Details Date Type Department Care Team (Late st Contact Info) Description 04/03/2023 6:40 PM NETWORK RELATIONS CONSULTANT E-Visit [facility] [address] [facility] [address] [place], [place] [phone] Serenity Barry PA-C [address] [place], [place] [phone] Chief Comp: Prior Authorization For Medication Social [...] Received approval of flakito Approved from 03/10/23-04/08/24 ORK RELATIONS CONSULTANT documented in this encounter Plan of Treatment Upcoming Encounters Date Type Department Care Team (Late st Contact Info) Description 09/04/2023 11:30 AM CDT Telemedicine [facility] [address] [place], [place] [address] Nima Vizcaino MD [address] [place], [place] [address] documented as of this encounter Visit Diagnoses Not on filedocumented in this encounter Care Teams Carrier Washer Relationship Specialty Start Date End Date Clinician, Not Found, [place] [address] PCP - General 10/12/15 documented as of this encounter
--- OUTSIDE RECORDS SUMMARY | 2023-06-20 12:26 | XMS_ITS | Data Portability ---
Author Name Unknown Address [address] [place] [address] Phone [phone] Organization [facility], [facility] Address [address] [place] [address] Care Team Providers Care Head Of Human Resources Name Role Phone [facility] Primary Care Provider Assessment Encounter Date Assessment Date Assessment LastModified by Organization Details LastModified Time 01/14/2022 01/14/2022 56 year old male with weak urine stream, straining to void, urinary urgency, and ejaculatory dysfunction. Not available 01/14/2022 08:21:19 04/18/2022 04/18/2022 56 year old male with weak urine stream, straining to void, urinary urgency, and ejaculatory dysfunction. [email or web address] Not available 04/16/2022 17:19:13 06/14/2022 06/14/2022 56 year old male with weak urine stream, straining to void, urinary urgency, and ejaculatory dysfunction. [email or web address] Not available 06/11/2022 15:16:43 06/19/2022 06/19/2022 56 year old male with weak urine stream, straining to void, urinary urgency, and ejaculatory dysfunction. Of note a total of 20 minutes was spent: preparing to see the patient by reviewing records, images, and laboratory data; obtaining/revie wing separately obtained history; performing physical examination, counseling and educating patient/family/ caregiver; ordering appropriate medications, labs, imaging or procedures; documenting the clinical encounter; and coordination of care. Not available 06/19/2022 14:02:53 12/12/2022 12/12/2022 57M with metastatic prostate cancer= (uX6M9H2/1, [place] 4+5=9, PSA 28.4) 1) Prostate cancer - s/p RT to primary tumor and LN - excellent initial PSA response - recommend PSMA-PET prior to January appt for additional metastatic staging, in light of possible bone metastasis - if additional metastasis, consider intensifying treatment with oral anti-androgen - f/u with me after 01/23/23 with PSA, review PSMA-PET 2) Bone Health - recommend start 9982-2555 mg Ca and 400-1000 IU Vitamin D daily 3) Genetics - Germline- discussed rationale, he prefers to defer this for now - Somatic- will send Foundation One 4) BPH/LUTS - continue flomax and alfuzosin 45 min total time [email or web address] Not available 12/12/2022 18:06:49 02/14/2023 02/14/2023 57M with metastatic prostate cancer= (yI6E9Y0/1, [place] 4+5=9, PSA 28.4) 1) Prostate cancer - s/p RT to primary tumor and LN - excellent initial PSA response - PSMA-PET with uptake in prostate, right ext iliac LN and right iliac bone; also possible paraaortic nodes - Eligard 22.5 mg today - consider starting Karishma/Pred to intensify treatment in light of bone mets; check baseline labs - discussed possible side effects of Karishma/Pred, need for frequent lab monitoring, importance of taking daily prednisone - see me in 3 months with PSA, next Eligard 2) Bone Health - 9798-2016 mg Ca and 400-1000 IU Vitamin D daily - consider Xgeva next visit 3) Genetics - Germline- discussed rationale, he prefers to defer this for now - Somatic- Foundation One, no reportable genomic alterations 4) BPH/LUTS - continue flomax and alfuzosin 5) Thyroid nodule - will order thyroid u/s to evaluate 45 min total time [email or web address] Not available 02/14/2023 18:41:01 02/20/2023 02/20/2023 Here for CMP and Invitae kit draw [email or web address] Not available 02/20/2023 11:23:23 05/23/2023 05/23/2023 57M with metastatic prostate cancer= (xD1W8Q8/1, [place] 4+5=9, PSA 28.4) 1) Prostate cancer - s/p RT to primary tumor and LN - excellent initial PSA response - PSMA-PET with uptake in prostate, right ext iliac LN and right iliac bone; also possible paraaortic nodes - Eligard 22.5 mg today - will work with pharmacy to get Karishma/Pred started - see me in 3 months with PSA, next Eligard 2) Bone Health - 3704-5139 mg Ca and 400-1000 IU Vitamin D daily - consider Xgeva next visit 3) Genetics - Germline- discussed rationale, he prefers to defer this for now - Somatic- Foundation One, no reportable genomic alterations 4) BPH/LUTS - continue flomax and alfuzosin; it is worse if he stops 5) Thyroid nodule - needs new thyroid u/s 3-6 months 6) ED, low libido - declines PDE5i - likely from ADT 7) Hot flashes - consider Megace vs acupuncture justyna Not available 05/23/2023 11:22:58 06/19/2023 06/19/2023 57M with metastatic prostate cancer= (qW2M8W8/1, [place] 4+5=9, PSA 28.4) s/p RT to primary tumor and LN. On ADT with eligard and Abiraterone + Prednisone ( started 05/23/23). Noticeable increase in fatigue since starting karishma/pred, possible increase in hot flashes. Not available 06/19/2023 14:48:07 Plan of Treatment Reminders Order Date Submit Date Provider Last Modified By Organization Details Last Modified Time Details Appointments LAB BLOOD DRAW 2023 08:20A [facility] Not available Not available Not available ESTABL ISHED 30 2023 08:30A M Constantine lynch MD, PHD Not available Not available Not available Lab PSA, serum or plasma 2023 024 justyna [facility], [address], [place], [address], 05/23/2023 10:35:42 CMP, serum or plasma 2023 024 [facility], [address], [address], [place], [address], 02/20/2023 17:25:22 PSA, serum or plasma 2022 024 justyna [facility], [address], [place], [address], 02/14/2023 17:28:03 CMP, serum or plasma - CMP every 2 weeks for 12 weeks ( 024-) 2023 024 [email or web address] [facility], [address], [place], [address], 02/25/2023 09:34:23 PSA, serum or plasma 2022 023 [email or web address] [facility], [address], [place], [address], 12/12/2022 17:16:49 PSA, serum or plasma 2022 023 [email or web address] [facility], [address], [place], [address], 04/18/2022 12:54:43 Referral None record ed. Procedures None record ed. Surgeries None record ed. Imaging US, thyroi d 2023 024 HERMELINDO [facility], [address], [address], [place], [address], 02/28/2023 15:10:11 PET-CT , skull base to mid-th igh scan - PSMA scan; Eyes to thighs 2022 023 [email or web address] [facility], [address], [address], [place], [address], 01/08/2023 16:09:25 NM, bone scan, whole body 2022 023 [facility] ([facility]iology), [address], [place], [address], 07/04/2022 10:08:02 CT, abdome n + pelvis , w/ contra st 2022 023 [facility] (Radiology), [address], [place], [address], 07/04/2022 10:08:02 MRI, prosta te, w/wo contra st 2022 023 [facility], [address], [address], [place], [address], 04/22/2022 11:34:10 Medication Orders Eligar d 22.5 mg (3 month) subcut aneous syring e 2023 024 [email or web address] [facility], [address], [place], [address], 05/23/2023 11:24:45 Eligar d 22.5 mg (3 month) subcut aneous syring e 2023 024 [email or web address] [facility], [address], [place], [address], 02/14/2023 18:16:36 tamsul osin 0.4 mg capsul e 2023 024 [email or web address] [facility], [address], [place], [address], 02/14/2023 18:10:38 Eligar d 22.5 mg (3 month) subcut aneous syring e 2022 023 [email or web address] [facility], [address], [place], [address], 10/24/2022 09:30:55 Firmag on kit with diluen t syring e 80 mg subcut aneous soluti on 2022 023 [email or web address] [facility], [address], [place], [address], 09/23/2022 17:12:27 Firmag on kit with diluen t syring e 120 mg subcut aneous soluti on 2022 023 [email or web address] [facility], [address], [place], [address], 08/23/2022 09:30:56 ceftri axone 1 gram soluti on for inject ion 2022 023 [email or web address] [facility], [address] , [place], [address], 06/19/2022 10:58:16 levofl oxacin 500 mg tablet 2022 023 [facility], [address], [place], [address], 04/18/2022 15:41:20 meloxi cam 15 mg tablet 2021 022 [facility], [address] , [place], [address], 01/14/2022 12:23:31 alfuzo sin ER 10 mg tablet ,exten ded releas e 24 hr 2021 022 [facility], [address] , [place], [address], 01/14/2022 12:23:30 Patient TargetsNo targets recorded. Patient Instructions Encounter Date Encounter Id Patient Instructions Last Modified By Organization Details Last Modified Time 06/19/2023 [id number] 45 minutes total time spent reviewing records, speaking with patient and writing note. Not available 06/19/2023 14:57:46 02/20/2023 [id number] Pt to follow up with Dr. Ilda sabillon Not available 02/20/2023 11:23:35 06/19/2022 [id number] We discussed how patient's clinicopathologic characteristics including his prostate specific antigen level, digital rectal exam findings and biopsy grade place him in the high risk category according to NCCN criteria (PSA >20 ng/mL or robert grade group 4/5 or clinical stage T3a or greater). We discussed about which treatments to use for prostate cancer at high risk for relapse depends on many factors, including technical issues, such as whether it is safe for the man to undergo an operation and whether the prostate is the appropriate size and in the appropriate position for radiation therapy. I spent considerable amount of time with patient emphasizing the limitations of currently available literature and guidelines and the absence of any randomized studies comparing surgery to radiation in men with intermediate- or high-risk prostate cancer; therefore, there is no clear answer about which approach is more likely to cure the disease. Perhaps most importantly, we spent significant time discussing the inordinately high biochemical relapse rate (as high as >50% in some series) following definitive treatment with curative intent in the high-risk prostate cancer cohort. While surgery or radiation may provide local control in the vast majority and even cure in select patients, the overwhelming majority of patients will still require some form of adjuvant therapy following either surgery or radiotherapy. I discouraged patient from considering primary androgen deprivation therapy since it is not curative and is associated with multiple side effects, such as hot flashes, osteoporosis, decreased libido, erectile dysfunction, and a potentially higher risk of diabetes and heart disease. I only briefly discussed the limited role of both active surveillance and focal therapy, neither of which are indicated in the management of high-risk prostate cancer. I strongly discouraged patient from pursuing either of these options given his inordinately high risk of prostate cancer disease progression and extraprostatic disease, respectively. We spent the bulk of our time discussing two major therapeutic options, which include radical prostatectomy and radiation therapy. We discussed the rationale of radical prostatectomy performed via either a robotic or open technique. The concepts of the surgery are removal of the pelvic lymph nodes and prostate, with nerve-sparing as deemed appropriate. These have both diagnostic and therapeutic intent. An important but evolving area of study is whether extended lymph-node dissection will improve the staging and curing of prostate cancer. When performed robotically, the operation is carried out through six small incisions and a 2.5-4 hour surgery associated with minimal blood loss, an overnight hospital stay, and 5-7 days of Saldaña catheterization. Major risk of the surgery are rare but do include bleeding, infection, adjacent organ injury, lymphocele, positive margins, severe pain and standard operative risks such as myocardial infarction, stroke, DVT, pneumonia, PE and even a 0.2% chance of . We discussed urinary incontinence following surgery. Approximately 10-20% of men will have nearly complete control of their urination when the catheter is removed, the median time to recovery is approximately 3-4 months but can take up to 12-18 months. Based on currently available data, approximately 96% of men will have excellent control of urination at one year following surgery. In regards to sexual function, I explained the median time to recovery of functional erections is 6-8 months but can take up to 18 months. Compared to low and select intermediate-risk prostate cancer patients who are candidates for aggressive bilateral nerve-sparing approaches, most high-risk patients are not candidates due to their high-grade, high-volume disease and primary intent of cure. Therefore, high-risk men undergoing [id number] radical prostatectomy may be at higher risk of postoperative erectile dysfunction. Furthermore, patient's baseline erectile function as measured by his International Index of Erectile Function questionnaire {{22-25: None 17-21: Mild 12-16: Mild-Moderate 8-11: Moderate 1-7: Severe}} remains the single strongest predictor of eventual long-term erectile function. Following surgery, the PSA is expected to remain undetectable, but if it does rise there is a possibility of salvage curative radiation therapy, if deemed appropriate. We also discussed the rationale of radiation therapy, namely external beam radiation therapy combined with at least 18-36 months of concurrent androgen deprivation therapy. Radiation has been the most commonly used approach in men with high-risk prostate cancer, in part because of a concern that surgery may not be able to remove all the cancer in the prostate in some men. In all high-risk cases, hormone therapy is used with radiation therapy because this combination has been shown to be helpful in treating men who are at high risk for relapse. There is an excellent track success but can be associated with potential side effects which include urinary urgency, frequency, urethral stricture as well as the potential for erectile dysfunction and rectal irritation or frequency of bowel movements. I explained there is an approximately 2% chance of serious bladder or rectal toxicity as well as a very low risk of inducing a secondary malignancy. The potential downside of radiation is complete pathologic review and lack of reliable salvage curative options. Given patient's high risk disease and life-expectancy > 5 years, we discussed the indications for both nuclear medicine bone scan and abdominopelvic cross sectional imaging including advanced clinical stage (>cT2), Robert score >8, prostate specific antigen > 10 ng/mL and probability of lymph node involvement > 10%. He will be scheduled for both a bone scan and CT abdomen/pelvis prior to follow-up. He appears to be very well informed about his cancer as well as the options. I explained to him that there is no mace in making a decision, and the most important thing is that he feels comfortable and educated regarding his options and ultimate choice. Not available 06/19/2022 14:03:47 Reason for Referral Referring Physician: Epi Rudd, Urology, Encounter Date: 07/24/2022 Results Created Date Observation Date Name Description Value Unit Range Abnormal Flag LastModifiedBy Organization Detail LastModifiedTime 04/19/1904/18/2022 PSA, serum or plasm a PSA 28.4 ng/ml 0-4.0 Not Available [facility] [address], [place], [address], 04/18/2022 12:35:53 12/13/19 23 12/12/2022 PSA, serum or plasm a PSA 0.53 ng/ml 0-4.0 Not Available [facility] [address], [place], [address], 12/12/2022 16:56:49 02/14/19 24 02/14/2023 PSA, serum or plasm a PSA 0.17ng /ml 0-4.0 Not Available [facility] [address], [place], [address], 02/05/2023 11:28:31 02/20/19 24 02/20/2023 COMPR EHENS DEEP METAB OLIC PANEL ALT-olympus 52.0 IU/L 10.0-4 0.0 high Not Available [facility] [address] [place] [address] [address], [place], [address], 02/20/2023 17:25:21 02/20/19 24 02/20/2023 COMPR EHENS DEEP METAB OLIC PANEL AST-olympus 28.3 IU/L 10.0-4 2.0 Not Available [facility] [address] [place] [address] [address], [place], [address], 02/20/2023 17:25:21 02/20/19 24 02/20/2023 COMPR EHENS DEEP METAB OLIC PANEL ALP-olympus 67.0 [IU]/ L 24.0-1 06.0 Not Available [facility] [address] [place] [address] [address], [place], [address], 02/20/2023 17:25:21 02/20/19 24 02/20/2023 COMPR EHENS DEEP METAB OLIC PANEL albumin-olym pus 4.2 g/dL 3.5-5. 0 Not Available [facility] [address] [place] [address] [address], [place], [address], 02/20/2023 17:25:21 02/20/19 24 02/20/2023 COMPR EHENS DEEP METAB OLIC PANEL T bilirubin-ol ympus 0.3 mg/dL 0.2-1. 0 Not Available [facility] [address] [place] [address] [address], [place], [address], 02/20/2023 17:25:21 02/20/19 24 02/20/2023 COMPR EHENS DEEP METAB OLIC PANEL D bilirubin-ol ympus 0.1 mg/dL 0.0-0. 2 Not Available [facility] [address] [place] [address] [address], [place], [address], 02/20/2023 17:25:21 02/20/19 24 02/20/2023 COMPR EHENS DEEP METAB OLIC PANEL T protein-olym pus 6.7 g/dL 6.5-8. 1 Not Available [facility] [address] [facility] [address], [place], [address], 02/20/2023 17:25:21 02/20/19 24 02/20/2023 COMPR EHENS DEEP METAB OLIC PANEL potassium 4.3 mmol/ L 3.6-5. 0 Not Available [facility] [address] [facility] [address], [place], [address], 02/20/2023 17:25:21 02/20/19 24 02/20/2023 COMPR EHENS DEEP METAB OLIC PANEL Na 142.0 mmol/ L 135.0- 145.0 Not Available [facility] [address] [place] [address] [address], [place], [address], 02/20/2023 17:25:21 02/20/19 24 02/20/2023 COMPR EHENS DEEP METAB OLIC PANEL chloride 105.0 mmol/ L 101.0- 111.0 Not Available [facility] [address] [place] [address] [address], [place], [address], 02/20/2023 17:25:21 02/20/19 24 02/20/2023 COMPR EHENS DEEP METAB OLIC PANEL CO2 28.0 mmol/ L 21.0-3 1.0 Not Available [facility] [address] [place] [address] [address], [place], [address], 02/20/2023 17:25:21 02/20/19 24 02/20/2023 COMPR EHENS DEEP METAB OLIC PANEL aniongap 9.00 0.00-1 6.00 Not Available [facility] [address] [place] [address] [address], [place], [address], 02/20/2023 17:25:21 02/20/19 24 02/20/2023 COMPR EHENS DEEP METAB OLIC PANEL glu 109.40 mg/dL 70.00- 105.00 high Not Available [facility] [address] [facility] [address], [place], [address], 02/20/2023 17:25:21 02/20/19 24 02/20/2023 COMPR EHENS DEEP METAB OLIC PANEL Ca 9.4 mg/dL 8.4-10 .2 Not Available [facility] [address] [facility] [address], [place], [address], 02/20/2023 17:25:21 02/20/19 24 02/20/2023 COMPR EHENS DEEP METAB OLIC PANEL BUN 19.0 mg/dL 7.0-18 .0 high Not Available [facility] [address] [facility] [address], [place], [address], 02/20/2023 17:25:21 02/20/19 24 02/20/2023 COMPR EHENS DEEP METAB OLIC PANEL BUN/creat 17.4 ratio 9.0-20 .0 Not Available [facility] [address] [place] [address] [address], [place], [address], 02/20/2023 17:25:21 02/20/19 24 02/20/2023 COMPR EHENS DEEP METAB OLIC PANEL creatinine 1.1 mg/dL 0.6-1. 3 Not Available [facility] [address] [place] [address] [address], [place], [address], 02/20/2023 17:25:21 02/20/19 24 02/20/2023 COMPR EHENS DEEP METAB OLIC PANEL eGFR >60 mL/mi n_per _1.73 90-120 Not Available [facility] [address] [place] [address] [address], [place], [address], 02/20/2023 17:25:21 05/23/19 24 05/23/2023 PSA, serum or plasm a PSA <0.04 ng/ml 0-4.0 Not Available [facility] [address], [place], [address], 05/20/2023 21:33:00 04/24/19 23 04/18/2022 bladd er scan (PROC ) No observ ation record ed. BARCODE Not Available 04/23/2022 11:32:18 04/26/19 23 04/25/2022 MRI, prost ate, w/wo contr ast No observ ation record ed. [email or web address] [facility] [address], [place], [address], 05/01/2022 15:09:12 06/18/19 23 06/14/2022 US, prost ate No observ ation record ed. Not Available 06/19/2022 14:02:40 07/10/19 23 07/09/2022 NM, bone scan, whole body No observ ation record ed. [facility] [address] [facility], [place], [address], 07/22/2022 16:04:48 07/10/19 23 07/09/2022 CT, abdom en + pelvi s, w/ contr ast No observ ation record ed. [facility] [address] [facility], [place], [address], 07/24/2022 17:53:15 01/17/20 23 01/14/2023 PET-C T, skull base to mid-t high scan No observ ation record ed. [email or web address] [address], [place], [address], 02/04/2023 16:31:41 02/28/19 24 02/28/2023 US, thyro id EXAM: US THYROI D LOCATI ON: [facility] izabela Conte[place] DATE: 024 INDICA TION: Nontox ic single thyroi d nodule . COMPAR HENRI: PSMA PET-CT on 2022 TECHNI QUE: Thyroi d ultras ound. FINDIN GS: RIGHT lobe: 4.2 x 1.9 x 1.1 cm. Homoge neous echote xture. Isthmu s: 6 mm. LEFT lobe: 4.5 x 1.7 x 1.5 cm. Homoge neous echote xture. NODULE S: Nodule 1: Review ing the PET-CT , there is focal tracer uptake along the picture engraver ior inferi or LEFT lobe of the thyroi d gland. On the ultras ound today, in the picture engraver ior aspect of the mid to inferi or left lobe, there is a 0.5 x 0.5 x 0.6 cm nodule seen on image 26 and on the cine clips of the left thyroi d lobe. Compos ition: Solid or almost comple tely solid, 2 points Echoge nicity : Hypoec hoic, 2 points Shape: Not taller than wide, 0 points Margin : Ill-de fined, 0 points Echoge danitza Foci: None, or large comet- tail artifa cts, 0 points Point Total: 4 points . TI-RAD S 4. IMPRES MARYA: 1. A 6 mm TI-RAD S 4 nodule in the picture engraver ior aspect of the mid to inferi or LEFT lobe of the thyroi d gland likely corres ponds to the focal uptake on the PET CT. Given the radiot racer uptake , consid er FNA of this nodule . Nodule s are charac terize d per ACR Thyroi d Imagin g, Report ing and Data System (TI-RA DS): White Paper of the ACR TI-RAD S Commit moe Karlo r, Annie in N. et al. Grisel l of the [facility] an Yi e of Radiol ogy 2017. Volume 14 (2017) , Issue 5, 492-31 5. This report was electr onical ly interp reted by: DR. MEREDITH AREVALO M.D. [email or web address] [facility] [address] [facility] [address], [place], [address], 05/23/2023 11:14:10 04/04/19 24 04/04/2023 fine needl e aspir ation , thyro id (PROC ) No observ ation record ed. [email or web address] [facility] [address], [place], [address], 05/23/2023 11:14:10 Result Notes None recorded. Problems Name Status Onset Date Resolution Date Notes Provider Name and Address Organization Details Recorded Time Malignant tumor of prostate Active 09/24/19 23 [facility] 09/23/2022 14:52:31 Metastatic malignant neoplasm Active 12/13/19 23 Constantine bernardo MD, PHD [address] [place], [place] [id number], [facility] 12/12/2022 18:06:08 Lower urinary tract symptoms due to benign prostatic hypertrophy Active 12/13/19 23 Constantine bernardo MD, PHD [address] [place], [place] [id number], [facility] 12/12/2022 18:06:15 Thyroid nodule Active 02/14/19 24 Constantine bernardo MD, PHD [address] [place], [place] [phone], [facility] 02/14/2023 17:42:33 Reduced libido Active 05/23/19 24 Constantine bernardo MD, PHD [address] [place] [address], [facility] 05/23/2023 11:23:02 Metastatic malignant neoplasm to bone Active 06/19/19 24 JAKE MARTÍNEZ [address] [address], [facility] 06/19/2023 14:41:38 Male hot flash Active 06/19/19 24 JAKE MARTÍNEZ [address] [address], [facility] 06/19/2023 14:41:40 Problem Notes None recorded. Procedures Surgical History Date Name Laterality Status Provider Name and Address Organization Details Recorded Time COMPLEX VISIT completed Constantine Thorne MD, PHD [address] [place] [address], [facility] 05/23/2023 11:22:40 4 CASH MANAGEMENT COORDINATOR/blood draw completed Adeola Martinez null, [facility] 05/20/2023 21:33:17 4 CASH MANAGEMENT COORDINATOR/blood draw completed Emlei Montanez null, [facility] 02/20/2023 11:09:17 4 COMPLEX VISIT completed Constantine Thorne MD, PHD [address] [place] [address],[address], [place], [address], [facility] 02/14/2023 18:41:08 4 CASH MANAGEMENT COORDINATOR/blood draw completed Adeola Montgomeryo null, [facility] 02/14/2023 17:04:01 3 CASH MANAGEMENT COORDINATOR/blood draw completed Adeola Montgomeryo null, [facility] 12/12/2022 16:56:45 3 Keo completed Britney Cespedes null, [facility] 10/24/2022 09:27:28 3 Firmagon completed Britney Cespedes null, [facility] 09/23/2022 15:02:16 3 Prostate Biopsy Procedure completed Epi Rudd MD [address] [place] [address],[address], [place], [address], [facility] 06/14/2022 10:32:09 3 Rocephin/Ceftr iaxone completed Serenity Lora null, [facility] 06/14/2022 10:13:42 3 Bladder Scan completed Serenity Lora null, [facility] 04/18/2022 12:43:19 3 Blood Draw/CASH MANAGEMENT COORDINATOR/PSA RESULTS completed Serenity Lora null, [facility] 04/18/2022 12:35:42 2 Bladder Scan completed Epi Rudd MD [address] [place] [address],[address], [place], [address], [facility] 01/14/2022 11:44:15 procedure on knee completed pEi Rudd MD [address], [place], [address], [place] [facility] 01/14/2022 11:39:04 Imaging Results Imaging Date Name Status LastModified by Earnest tirado Details LastModified Time 04/18/2022 bladder scan (PROC) completed BARCODE Information not available 04/23/2022 11:32:18 04/25/2022 MRI, prostate, w/wo contrast completed [email or web address] [facility] [address], [place], [address], 05/01/2022 15:09:12 06/14/2022 US, prostate [email or web address] Information not available 06/19/2022 14:02:40 07/09/2022 NM, bone scan, whole body completed [email or web address] [place] [address], [place], [address], 07/22/2022 16:04:48 07/09/2022 CT, abdomen + pelvis, w/ contrast completed [email or web address] [address], [place], [address], 07/24/2022 17:53:15 01/14/2023 PET-CT, skull base to mid-thigh scan completed [employer] [facility] [address], [place], [address], 02/04/2023 16:31:41 02/28/2023 US, thyroid completed [email or web address] [facility] [address], [place], [address], 05/23/2023 11:14:10 04/04/2023 fine needle aspiration, thyroid (PROC) completed [email or web address], [place], [address], 05/23/2023 11:14:10 Procedure Notes None recorded. Medical Equipment None Reported. Allergies Allergen ID Allergen Name Allergen Category Reaction Reaction Severity Criticality Documentation Date Start Date Code Code System Note Provider Name and Address Organization Details Recorded Time 016629 morphine medicatio n Not available Not available Not available 01/14/2022 7052 RxNorm Epi Rudd MD [address] [facility],[address], [address], [facility] 2 11:38:04 Medications Name Sig Start Date Stop [...] Not Available Not Available Not Available Vitals Date Recorded Body height Body mass index (BMI) Body weight Provider Name and Address Organization Details Last Updated DateTime 01/14/2022 187.96 cm 41.7 kg/m2 017936.52 g Epi Rudd MD [address] [facility] [address], [place], [address], [facility] 01/14/2022 11:37:50 Date Recorded Body height Body mass index (BMI) Body weight Provider Name and Address Organization Details Last Updated DateTime 04/18/2022 187.96 cm 41.7 kg/m2 793154.52 g Serenity Lora [facility] 04/18/2022 12:35:15 Date Recorded Body height Body mass index (BMI) Body weight Provider Name and Address Organization Details Last Updated DateTime 06/14/2022 187.96 cm 41.7 kg/m2 321158.52 g Serenity Lora [facility] 06/14/2022 10:05:42 Date Recorded Body height Body mass index (BMI) Body weight Provider Name and Address Organization Details Last Updated DateTime 06/19/2022 187.96 cm 41.7 kg/m2 438797.52 g Serenity Loar [facility] 06/19/2022 10:57:59 Date Recorded Body height Body mass index (BMI) Body weight Provider Name and Address Organization Details Last Updated DateTime 12/12/2022 187.96 cm 41.7 kg/m2 004181.52 g Adeola Martinez [facility] 12/12/2022 16:54:59 Date Recorded Body height Body mass index (BMI) Body weight Provider Name and Address Organization Details Last Updated DateTime 02/14/2023 187.96 cm 41.7 kg/m2 710017.52 g Adeola Martinez [facility] 02/14/2023 17:03:44 Date Recorded Body height Body mass index (BMI) Body weight Provider Name and Address Organization Details Last Updated DateTime 05/23/2023 187.96 cm 41.7 kg/m2 926192.52 g Constantine alcantar MD, PHD [address] [place] [address] 05/23/2023 10:34:43 Social History Question Answer Notes LastModified by Organizat ion Details LastModified Time Tobacco Smoking Status Former Smoker Epi Rudd MD [address] [place] [address] 01/14/2022 11:38:52 What Is Your Level Of Alcohol Consumption? None Information not available 01/14/2022 What Was The Date Of Your Most Recent Tobacco Screening? 05/23/2023 justyna Information not available 05/23/2023 Sex: Male Functional Status None recorded. Mental Status None recorded. Family History Relationship Description Onset Age of this Age Resolved Age Notes Mother Family history of ca ncer of colon Medical History Condition Response Sexually Transmitted Infection N Diabetes N Bleeding Disorder N Other N High Blood Pressure N Kidney Stones N High Cholesterol N GERD/Acid Reflux N Heart Disease N Cancer N Lung Disease N Depression N Past Encounters Encounter ID Performer Location Encounter Start Date Encounter Closed Date Diagnosis/Indication Diagnosis SNOMED-CT Code [id number] Epi Rudd MD [facility] [address] [place] [address] 01/14/2022 11:22:28 01/16/2022 09:19:19 Slowing of urinary stream 98323408 Must strai n to pass urine 085366262 Urgent vianca altagracia to urinate 39466854 Disorder o f ejaculation 647913403 Prostatitis 3412664 Prostate s pecific antigen above reference range 086961753 [id number] MD RAC[facility] [address] [place] [address] 04/18/2022 12:30:24 04/22/2022 11:34:10 Slowing of urinary stream 96856906 Must strai n to pass urine 762705162 Urgent vianca altagracia to urinate 51956972 Disorder o f ejaculation 334047578 Prostatitis 7675318 Prostate s pecific antigen above reference range 918122982 [id number] MD RACHEL [facility] [address] [place] [address] 06/14/2022 09:56:14 06/20/2022 16:26:42 Slowing of urinary stream 77727471 Must strai n to pass urine 008294246 Urgent vianca altagracia to urinate 58359733 Disorder o f ejaculation 368852217 Prostate s pecific antigen above reference range 173978372 [id number] MD RACHEL [facility] [address] [place] [address] 06/19/2022 10:57:12 06/24/2022 15:59:39 Slowing of urinary stream 52384719 Must strai n to pass urine 731192773 Urgent vianca altagracia to urinate 84591321 Disorder o f ejaculation 797759855 Prostate s pecific antigen above reference range 121789187 Malignant tumor of prostate 669620641 [id number] MD RACHEL [facility] [address] [place] [address] 08/23/2022 08:49:54 08/30/2022 08:49:35 Malignant tumor of prostate 114991702 [id number] Britney Cespedes [facility] [address] [place], [place] [address] 09/23/2022 13:54:12 09/27/2022 09:34:25 Malignant tumor of prostate 263777670 [id number] Epi Rudd MD [facility] [address] [place], [place] [address] 10/24/2022 08:48:27 11/01/2022 08:59:18 Malignant tumor of prostate 099368242 [id number] Jenae Yun [facility] [address] [place], [place] [address] 12/12/2022 16:45:29 12/25/2022 13:24:18 Malignant tumor of prostate 099299126 Metastatic malignant neoplasm 652848699 Lower urin andrey tract symptoms due to benign prostatic hypertrophy [id number] Constantine watson MD, PHD [facility] [address] [place], [place] [address] 02/14/2023 16:58:11 02/24/2023 13:50:13 Malignant tumor of prostate 128003759 Metastatic malignant neoplasm 169986340 Lower urin andrey tract symptoms due to benign prostatic hypertrophy 00690591812287 Thyroid nodule 837950475 [id number] Emeli Alexa elizabeth [facility] [address] [place] [address] 02/20/2023 10:45:50 02/28/2023 03:58:01 Malignant tumor of prostate 339807158 [id number] Constantine watson MD, PHD [facility] [address] [place] [address] 05/23/2023 09:57:22 05/26/2023 11:23:54 Malignant tumor of prostate 613233554 Metastatic malignant neoplasm 959363170 Lower urin andrey tract symptoms due to benign prostatic hypertrophy 13278245416376 Thyroid nodule 122844941 Reduced libido 5536073 [id number] JAKE MARTÍNEZ, GARMENT INSPECTOR-TOMI [facility] [address] [place] [address] 06/19/2023 14:06:14 06/19/2023 15:02:16 Malignant tumor of prostate 213156664 Metastatic malignant neoplasm to bone 08251470 Male hot flash 824948231 [id number] Health Concerns Section Related Observation LastModified by Organization Detai ls LastModified Time None Recorded Concern Status LastModified by Organization Details LastModified Time None Recorded Advance Directives Directive None Recorded Payers Encounter Date Sequence Insurance Name Policy Number Policy Hernandez Covered Member ID Hernandez Member ID Guarantor Name 06/19/2023 [place] [id number] Edward D Sha [id number] Edward D Sha 05/23/2023 1 [place] [id number] Edward D Sha [id number] Edward D Sha 02/20/2023 1 [place] [id number] Edward D Sha [id number] Edward D Sha 02/14/2023 1 [place] [id number] Edward D Sha [id number] Edward D Sha 12/12/2022 1 [place] [id number] Edward D Sha [id number] Edward D Sha 10/24/2022 1 [place] [id number] 01 Edward D Sha [id number] Edward D Sha 09/23/2022 1 [place] [id number] 01 Edward D Sha [id number] Edward D Sha 08/23/2022 1 [place] [id number] 01 Edward D Sha [id number] Edward D Sha 06/19/2022 1 [place] [id number] Edward D Sha [id number] Edward D Sha 06/14/2022 1 [place] [id number] 01 Edward D Sha [id number] Edward D Sha 04/18/2022 1 [facility] [id number] Edward D Sha [id number] Edward D Sha 01/14/2022 1 [facility] [id number] Edward D Sha [id number] Edward D Sha Notes Date Note Type Note Provider Name and Address Organization Details Recorded Time 01/14/2022 text/html HPI Notes: Mr. Dalton is a very pleasant 56 year old male who is referred to me by his PCP, Dr. Roverto Morley, regarding ongoing voiding issues and ejaculatory dysfunction. His urination current consists of decreased stream, straining to void, urinary urgency, urinary frequency, and nocturia. Patient reports that this has been an ongoing issue now for close to a year. Thus far he has not tried any medication. He reports that his libido is intact. In the same time course he has also experienced anejaculation. Patient reports that he is able to reach climax but there is no ejaculate. At the time of orgasm he does feel some deep-seated pressure/pain. Patient did have PSA checked by his primary care provider which was noted to be 11.5 ng/mL Epi Rudd MD [address] [place] [address],[address], [place], [address], [facility] 01/14/2022 12:23:40 04/18/2022 text/html HPI Notes: Mr. Dalton is a very pleasant 56 year old male who is referred to me by his PCP, Dr. Roverto Morley, regarding ongoing voiding issues and ejaculatory dysfunction. His urination current consists of decreased stream, straining to void, urinary urgency, urinary frequency, and nocturia. Patient reports that this has been an ongoing issue now for close to a year. Thus far he has not tried any medication. He reports that his libido is intact. In the same time course he has also experienced anejaculation. Patient reports that he is able to reach climax but there is no ejaculate. At the time of orgasm he does feel some deep-seated pressure/pain. Patient did have PSA checked by his primary care provider which was noted to be 11.5 ng/mL 04/18/2022: Here for follow-up urinary frequency, urinary urgency, weakened urinary stream, ejaculatory dysfunction, and elevated PSA. Patient reports that his urination has significantly improved with course of meloxicam though his ejaculatory dysfunction continues. Repeat PSA today 28.4 ng/mL. Epi Rudd MD [address] [place] [address],[address], [place], [address], [facility] 04/18/2022 15:43:34 06/14/2022 text/html HPI Notes: Mr. Dalton is a very pleasant 56 year old male who is referred to me by his PCP, Dr. Roverto Morley, regarding ongoing voiding issues and ejaculatory dysfunction. His urination current consists of decreased stream, straining to void, urinary urgency, urinary frequency, and nocturia. Patient reports that this has been an ongoing issue now for close to a year. Thus far he has not tried any medication. He reports that his libido is intact. In the same time course he has also experienced anejaculation. Patient reports that he is able to reach climax but there is no ejaculate. At the time of orgasm he does feel some deep-seated pressure/pain. Patient did have PSA checked by his primary care provider which was noted to be 11.5 ng/mL 04/18/2022: Here for follow-up urinary frequency, urinary urgency, weakened urinary stream, ejaculatory dysfunction, and elevated PSA. Patient reports that his urination has significantly improved with course of meloxicam though his ejaculatory dysfunction continues. Repeat PSA today 28.4 ng/mL. 06/14/2022: Here for prostate biopsy, all questions answered prior to onset of procedure. MRI shows 44 cc gland with no PIRADS 4 or 5 lesions. Epi Rudd MD [address] [place] [address],[address], [place], [address], [facility] 06/14/2022 10:32:34 06/19/2022 text/html HPI Notes: Mr. Dalton is a very pleasant 56 year old male who is referred to me by his PCP, Dr. Roverto Morley, regarding ongoing voiding issues and ejaculatory dysfunction. His urination current consists of decreased stream, straining to void, urinary urgency, urinary frequency, and nocturia. Patient reports that this has been an ongoing issue now for close to a year. Thus far he has not tried any medication. He reports that his libido is intact. In the same time course he has also experienced anejaculation. Patient reports that he is able to reach climax but there is no ejaculate. At the time of orgasm he does feel some deep-seated pressure/pain. Patient did have PSA checked by his primary care provider which was noted to be 11.5 ng/mL 04/18/2022: Here for follow-up urinary frequency, urinary urgency, weakened urinary stream, ejaculatory dysfunction, and elevated PSA. Patient reports that his urination has significantly improved with course of meloxicam though his ejaculatory dysfunction continues. Repeat PSA today 28.4 ng/mL. 06/14/2022: Here for prostate biopsy, all questions answered prior to onset of procedure. MRI shows 44 cc gland with no PIRADS 4 or 5 lesions. 06/19/2022: Here for pathology review s/p TRUS biopsy for elevated PSA. Pathology reveals 12 out of 12 cores positive for cancer. [place] Scores ranged from 4+3 to 4+5 with the majority of each core positive for cancer. This visit was conducted by telephone due to the COVID-19 crisis. Prior to conducting our telephone visit, the [...] complete medical records resulting in not fully informed decisions. Also, because of the COVID-19 pandemic, it was not possible for the patient to [...] database to facilitate and coordinate their care. Epi Rudd MD [address] [place] [address],[address], [address], [facility] 06/19/2022 14:04:01 09/23/2022 text/html HPI Notes: Pt presents to clinic for Firmagon injection Britney perkins, [facility] 09/23/2022 17:44:23 10/24/2022 text/html HPI Notes: Pt presents to clinic for 1st Eligard injection Epi Rudd MD [address] [place] [address],[address], [place], [address], [facility] 10/24/2022 13:26:19 12/12/2022 text/html HPI Notes: 57M w ith metastatic prostate cancer= (dV2X0F0/1, Robert 4+5=9, PSA 28.4) Has now completed RT to prostate, pelvic LN and possible pelvic bony lesions. ADT: moderate hot flashes, mild fatigue : alfuzosin and tamsulosin; + urgency, occasional difficulty emptying GI: denies Imaging: CT A/P (07/09/22): right pelvic LN up to 4.6 cm, left LN up to 1.1 cm, small sclerotic lesion right iliac bone BS (07/09/22): no mets RT 10/09/22-11/21/22: 7000 cGy ([place]) ADT start: 08/23/22; Firmagon Last ADT: 10/24/22: Eligard 22.5 mg Prostate biopsy (06/14/22): 01/21 cores up to Gl 4+5=9 PSA Results 11/27/21: 11.5 04/18/22: 28.4 12/12/22: 0.53 PMH: obesity PSH: no abd surgery SocHx: Occ: director of Tech at [employer] Tob: EtOH: FamHx: efficiency expert- brother; he thinks might be environmental Rectal ca- mother 80s Constantine Thorne MD, PHD [address] [place] [address],[address], [place], [address], [facility] 12/12/2022 18:06:58 02/14/2023 text/html HPI Notes: 57M w ith metastatic prostate cancer= (iU3X8N4/1, Robert 4+5=9, PSA 28.4) Has now completed RT to prostate, pelvic LN and pelvic bony lesions. Here to review PSMA PET and Foundation One. ADT: moderate hot flashes, mild fatigue, concerned about weight gain : alfuzosin and tamsulosin; + urgency, occasional difficulty emptying GI: denies Imaging: CT A/P (07/09/22): right pelvic LN up to 4.6 cm, left LN up to 1.1 cm, small sclerotic lesion right iliac bone BS (07/09/22): no mets PSMA-PET( 01/14/23): uptake in prostate, right ext iliac LN and right iliac bone; also possible paraaortic nodes Genetics: Foundation one (01/22/23: MS- equivocal, TMB 2 Muts/Mb, no reportable genomic alterations RT 10/09/22-11/21/22: 7000 cGy ([place]) ADT start: 08/23/22; Firmagon Last ADT: 10/24/22: Eligard 22.5 mg Prostate biopsy (06/14/22): 01/21 cores up to Gl 4+5=9 PSA Results 11/27/21: 11.5 04/18/22: 28.4 12/12/22: 0.53 02/14/23: 0.17 PMH: obesity PSH: no abd surgery SocHx: former [employer] Occ: director of [employer] at [employer] Tob: EtOH: FamHx: efficiency expert- brother; he thinks might be environmental Rectal ca- mother 80s Constantine Thorne MD, PHD [address] [place] [address],[address], [place], [address], [facility] 02/14/2023 18:41:33 05/23/2023 text/html HPI Notes: 57M w ith metastatic prostate cancer= (rL7W1Q5/1, [place] 4+5=9, PSA 28.4) Completed RT to prostate, pelvic LN and pelvic bony lesions (11/21/22) with Dr Quiñones. Has Rx for Karishma; hasn't filled yet. ED: low libido; not interested in PDE5i, also low ejaculate ADT: moderate hot flashes, mild fatigue, concerned about weight gain : alfuzosin and tamsulosin; + urgency, occasional difficulty emptying GI: denies Imaging: CT A/P (07/09/22): right pelvic LN up to 4.6 cm, left LN up to 1.1 cm, small sclerotic lesion right iliac bone BS (07/09/22): no mets PSMA-PET (01/14/23): uptake in prostate, right ext iliac LN and right iliac bone; also possible paraaortic nodes Genetics: Foundation one (01/22/23: MS- equivocal, TMB 2 Muts/Mb, no reportable genomic alterations RT 10/09/22-11/21/22: 7000 cGy ([place]) ADT start: 08/23/22; Firmagon Last ADT: 03/06/23: Eligard 22.5 mg Prostate biopsy (06/14/22): 01/21 cores up to Gl 4+5=9 PSA Results 11/27/21: 11.5 04/18/22: 28.4 12/12/22: 0.53 02/14/23: 0.17 05/23/23: <0.04 PMH: obesity PSH: no abd surgery 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
--- OUTSIDE RECORDS SUMMARY | 2023-06-20 12:26 | XMS_ITS | Encounter Summary ---
Author Name Unknown Organization [facility] Address [address], [place] [address] Care Team Providers Care Physician Practice Consultant Name Role Phone Clinician, Not Found MD Primary Care Provider Un available Reason for Visit * Reason Comments Prior Authorization For Medication Wegov y 2.4 mg Encounter Details Date Type Department Care Team (Late st Contact Info) Description 03/25/2023 Telephone [facility] [address] [facility] [address] [place], [place] [phone] Serenity Barry PA-C [address] [place], [place] [phone] Prior Authorization For Medication (Wegovy 2.4 mg) [...] ePA initiated for Semaglutide (Wegovy) 2.4 mg. CIAL ADMINISTRATIVE ASSISTANT documented in this encounter Plan of Treatment Upcoming Encounters Date Type Department Care Team (Late st Contact Info) Description 09/04/2023 11:30 AM CDT Telemedicine [facility] [address] [place], [place] [address] Nima Vizcaino MD [address] [place], [place] [phone] documented as of this encounter Visit Diagnoses Not on filedocumented in this encounter Care Teams Physician Practice Consultant Relationship Specialty Start Date End Date Clinician, Not Found, [place] [address] PCP - General 10/12/15 documented as of this encounter
--- OUTSIDE RECORDS SUMMARY | 2023-06-20 12:26 | XMS_ITS | Continuity of Care Document ---
Author Name Unknown Address [address] [place] [address] Phone [phone] Organization [facility] U[facility], [facility] Address [address] [place] [address] Care Team Providers Care School Age Program Teacher Name Role Phone [facility] Primary Care Provider Assessment Encounter Date Assessment Date Assessment LastModified by Organization Details LastModified Time 05/23/2023 05/23/2023 57M with metastatic prostate cancer= (dY4Q8S0/1, Robert 4+5=9, PSA 28.4) 1) Prostate cancer [...] PSA, next Eligard 2) Bone Health - 2084-8298 mg Ca and 400-1000 IU Vitamin D [...] Hot flashes - consider Megace vs acupuncture [email or web address] Not available 05/23/2023 11:22:58 Plan of Treatment Reminders Order Date Submit Date Provider Last Modified By Organization Details Last Modified Time Details Appointments LAB BLOOD DRAW 2023 08:20A M [facility] Not available Not available Not available ESTABL ISHED 30 2023 08:30A M Constantine lynch MD, PHD Not available Not available Not available Lab PSA, serum or plasma 2023 024 justyna [facility], [address], [place], [address], 05/23/2023 10:35:42 Referral None record ed. Procedures None record ed. Surgeries None record ed. Imaging None record ed. Medication Orders Eligar d 22.5 mg (3 month) subcut aneous syring e 2023 024 [email or web address] [id number], [address], [place], [address], 05/23/2023 11:24:45 Patient TargetsNo targets recorded. Patient InstructionsNo instructions recorded. Reason for Referral Referring Physician: Epi Rudd, Urology, Encounter Date: 07/24/2022 Results Created Date Observation Date Name Description Value Unit Range Abnormal Flag LastModifiedBy Organization Detail LastModifiedTime 05/23/19 24 05/23/2023 PSA, serum or plasm a PSA <0.04 ng/ml 0-4.0 Not Available [facility] [address], [place], [address], 05/20/2023 21:33:00 Result Notes None recorded. Problems Name Status Onset Date Resolution Date Notes Provider Name and Address Organization Details Recorded Time Malignant tumor of prostate Active 09/24/19 23 Britney perkins [facility] 09/23/2022 14:52:31 Metastatic malignant neoplasm Active 12/13/19 23 Constantine bernardo MD, PHD [address] [facility],[address], [address], [facility] 12/12/2022 18:06:08 Lower urinary tract symptoms due to benign prostatic hypertrophy Active 12/13/19 23 Constantine bernardo MD, PHD [address] [place] [address], [phone], [facility] 12/12/2022 18:06:15 Thyroid nodule Active 02/14/19 24 Constantine bernardo MD, PHD [address] [place] [address], [phone], [facility] 02/14/2023 17:42:33 Reduced libido Active 05/23/19 24 Constantine bernardo MD, PHD [address] [place] [address], [phone], [facility] 05/23/2023 11:23:02 Metastatic malignant neoplasm to bone Active 06/19/19 24 JAKE MARTÍNEZ [address], [address], [facility] 06/19/2023 14:41:38 Male hot flash Active 06/19/19 24 JAKE MARTÍNEZ [address], [address], [facility] 06/19/2023 14:41:40 Problem Notes None recorded. Procedures Surgical History Date Name Laterality Status Provider Name and Address Organization Details Recorded Time 4 COMPLEX VISIT completed Constantine Thorne MD, PHD [address] [place] [address], [phone], [facility] 05/23/2023 11:22:40 4 REHABILITATION CASE COORDINATOR/blood draw completed Adeola perkins, [facility] 05/20/2023 21:33:17 4 REHABILITATION CASE COORDINATOR/blood draw completed Emeli perkins, [facility] 02/20/2023 11:09:17 4 COMPLEX VISIT completed Constantine Thorne MD, PHD [address] [place] [address], [phone], [facility] 02/14/2023 18:41:08 4 REHABILITATION CASE COORDINATOR/blood draw completed Adeola perkins [facility] 02/14/2023 17:04:01 3 REHABILITATION CASE COORDINATOR/blood draw completed Adeola Montgomeryo null, [facility] 12/12/2022 16:56:45 3 Keo completed Britneyronan Cespedes null, [facility] 10/24/2022 09:27:28 3 Kory completed Britney Bwmaribelshaista null, [facility] 09/23/2022 15:02:16 3 Prostate Biopsy Procedure completed Epi Rudd MD [address] [place] [address],[address] [address], [facility] 06/14/2022 10:32:09 3 Rocephin/Ceftr iaxone completed Serenity Lora [facility] 06/14/2022 10:13:42 3 Bladder Scan completed Serenity L[facility] 04/18/2022 12:43:19 3 Blood Draw/REHABILITATION CASE COORDINATOR/PSA RESULTS completed Serenity L[facility] 04/18/2022 12:35:42 2 Bladder Scan completed Epi Rudd MD [address] [place] [address],[address] [place] [address], [phone], [facility] 01/14/2022 11:44:15 procedure on knee completed Epi Rudd MD [address] [place] [address],[address], [address], [facility] 01/14/2022 11:39:04 Imaging Results None recorded. Procedure Notes None recorded. Medical Equipment None Reported. Allergies Allergen ID Allergen Name Allergen Category Reaction Reaction Severity Criticality Documentation Date Start Date Code Code System Note Provider Name and Address Organization Details Recorded Time 388336 morphine medicatio n Not available Not available Not available 01/14/2022 7052 RxNorm Epi Rudd MD [address] [place] [address],[address], [phone], [facility] 2 11:38:04 Medications Name Sig Start Date [...] 2nd Gen Pen Needle 32 gauge x USE 1 DAILY WITH PEN INJECTOR DEVICE [...] Updated DateTime 05/23/2023 187.96 cm 41.7 kg/m2 741509.52 g Constantine alcantar MD, PHD [address] [place] [address], [phone] [place] [address] Urolog 05/23/2023 10:34:43 Social History Question Answer Notes LastModified by Organizat ion Details LastModified Time Tobacco Smoking Status Former Smoker Epi Rudd MD [address] [place] [address], [phone] [place] [address] Urology 01/14/2022 11:38:52 What Is Your Level [...] ncer of colon Medical History Condition Response Diabetes N Sexually Transmitted Infection N Other N Bleeding Disorder N High Blood Pressure N Kidney Stones N Cancer N Lung Disease N Depression N High Cholesterol N GERD/Acid Reflux N Heart Disease N Past Encounters Encounter ID Performer Location Encounter Start Date Encounter Closed Date Diagnosis/Indication Diagnosis SNOMED-CT Code [id number] Constantine watson MD, PHD [facility] [address] [address] 05/23/2023 09:57:22 05/26/2023 11:23:54 Malignant tumor of prostate 693508278 Metastatic malignant neoplasm 370347158 Lower urin andrey tract symptoms due to benign prostatic hypertrophy 09987381509459 Thyroid nodule 187730196 Reduced libido 1576281 Health Concerns Section Related Observation LastModified by Organization Detai ls LastModified Time None Recorded Concern Status LastModified by Organization Details LastModified Time None Recorded Payers Encounter Date Sequence Insurance Name Policy Number Policy Hernandez Covered Member ID Hernandez Member ID Guarantor Name 05/23/2023 [place] [id number] [address] [id number] tanya Huston Notes Date Note Type Note Provider Name and Address Organization Details Recorded Time 05/23/2023 text/html HPI Notes: 57M w ith metastatic prostate cancer= (vC3C5Z2/1, Campbell 4+5=9, PSA 28.4) Completed RT to prostate, [...] of [employer] Tob: EtOH: FamHx: fisher trap- brother; he thinks might be environmental Rectal ca- mother 80s Constantine Thorne MD, PHD [address] [facility],[address], [place], [address], [place] [facility] [place] [facility] 05/23/2023 11:53:08
--- OUTSIDE RECORDS SUMMARY | 2023-06-20 12:26 | XMS_ITS | Encounter Summary ---
Author Name Unknown Organization [facility] Address [address] [address] Care Team Providers Care Network Engineering Advisor Name Role Phone Clinician, Not Found MD Primary Care Provider Un available Reason for Visit * Reason Comments Video Visit Follow-up MWM Encounter Details Date Type Department Care Team (Late st Contact Info) Description 05/27/2023 2:30 PM CDT Telemedicine [facility] [address] [facility] [address] [place], [place] [address] Nima Vizcaino MD [address] [place], [place] [address] ASHLEY (obstructive sleep apnea) (Primary Dx); Prediabetes; [...] you in 3 months. Raza Vizcaino MD [facility] documented in [...] 2022 - had radiation treatment. Treatment through [place] [facility]. He is on abiraterone & Eligard [...] Last 3 Encounters: 05/27/23 (!) 328 lb (363778 g) 12/29/22 (!) 317 lb (140164 g) 05/09/22 (!) 320 lb (009941 g) [facility] Assessment: Updating Your [...] 2 (188 cm) Wt (!) 328 lb (399816 g) BMI 42.11 kg/m?? General/constitutional: Alert in [...] index (BMI)of 40.0 to 44.9 in adult ([facility]) E66.01 semaglutide-weight management (WEGOVY) 2.4 MG/0.75ML pen injection Z68.41 metFORMIN (GLUCOPHAGE) 500 MG tablet 4. Morbid obesity with BMI of 40.0-44.9, adult ([facility]) E66.01 Z68.41 Plan for management includes [...] up: in 3 months. Raza Vizcaino MD [facility] This service [...] Info) Description 09/04/2023 11:30 AM CDT Telemedicine [facility] [address] [facility] [address] [place], [place] [address] Nima Vizcaino MD [address] [place], [place] [address] documented as of this encounter Visit Diagnoses Diagnosis ASHLEY (obstructive sleep apnea)- Primary Obstructive sleep apnea (adult) (pediatric) Prediabetes Other abnormal glucose Class 3 severe obesity due to excess calories with serious comorbidity and body mass index (BMI) of 40.0 to 44.9 in adult ([facility]) Morbid obesity with BMI of 40.0-44.9, adult ([facility]) documented in this encounter Care Teams Network Engineering Advisor Relationship Specialty Start Date End Date Clinician, Not Found, [place] [address] PCP - General 10/12/15 documented as of this encounter
--- OUTSIDE RECORDS SUMMARY | 2023-06-20 12:26 | XMS_ITS | Encounter Summary ---
Author Name Unknown Organization [facility] Address [address] [place] [address] Care Team Providers Care Voting Machine Repairer Name Role Phone Roverto Morley MD Primary Care Provider [phone] Reason for Visit * Reason Comments Tachycardia Encounter Details Date Type Department Care Team (Late st Contact Info) Description 05/02/2023 8:25 PM CDT - 05/02/2023 9:33 PM CDT Emergency [facility] Emergency Dept [address] [place] [address] Slim Cali MD [facility] [address] [place] [address] Vineet Cui DO [facility] [address] [place] [address] SVT (supraventricular tachycardia) Discharge Disposition: Home or [...] sent through Care Everywhere. * Supraventricular Tachycardia (Venezuelan) documented in this encounter ED Notes * [...] 99 % O2 Device None (Room air) [place] Coma Scale Best Eye Response 4-->(E4) spontaneous Best Motor Response 6-->(M6) obeys commands Best Verbal Response 5-->(V5) oriented [place] Coma Scale Score 15 Weight & Height [...] wave abnormality Abnormal ECG Rate 164 bpm. WV interval * ms. QRS duration 86 ms. QT/QTc 292/482 ms. P-R-T axes * 63 -3. ECG #2 ECG taken at 2032, ECG read at 2032 Sinus tachycardia Otherwise normal ECG Sinus tachycardia is new as compared to 1st ECG. Rate 106 bpm. WV interval 178 ms. QRS duration 86 ms. [...] ED Course and MDM Impression & Plan [facility] Diagnoses: None Code Status: No Order [...] LAB - BLOOD DRU ROMAN RH LABORATORY [facility] Acute Care Lab [address] Lab (1st floor, no room number) [place] [address], [facility] * (ABNORMAL) Basic metabolic panel (05/02/2023 8:35 PM CDT) [facility] Signature Sodium 141 135 - 145 mmol/L [...] Cui DO LAB - BLOOD DRU ROMAN [facility] Lab [address] Lab (1st floor, no room number) [place] [address] * Extra Purple Top Tube (05/02/2023 8:35 PM CDT) Hold Specimen [facility] 05/02/2023 9:46 PM CDT RH LABORATORY Blood VENOUS LINE / Unknown Venipuncture / Unknown 05/02/2023 8:35 PM CDT 05/02/2023 8:41 PM CDT Slim Cali MD LAB - BLOOD ORDERABL ES Performing Organization Address City/[facility]/ZIP Co de Phone Number [facility] Lab [address] Lab (1st floor, no room number) [place] [address] * Extra Green Top ([place] Heparin) Tube (05/02/2023 8:35 PM CDT) Hold Specimen [facility] 05/02/2023 9:46 PM CDT RH LABORATORY Blood VENOUS LINE / Unknown Venipuncture / Unknown 05/02/2023 8:35 PM CDT 05/02/2023 8:41 PM CDT Slim Cali MD LAB - BLOOD ORDERABL ES [facility] Lab [address] Lab (1st floor, no room number) [place] [address] * Extra Red Top Tube (05/02/2023 8:35 PM CDT) Hold Specimen [facility] 05/02/2023 9:46 PM CDT RH LABORATORY Blood VENOUS LINE / Unknown Venipuncture / Unknown 05/02/2023 8:35 PM CDT 05/02/2023 8:41 PM CDT Slim Cali MD LAB - BLOOD ORDERABL ES LABORATORY [facility] Acute Care Lab [address] Lab (1st floor, no room number) [place] [address] * Extra Blue Top Tube (05/02/2023 8:35 PM CDT) Hold Specimen [facility] 05/02/2023 9:46 PM CDT LABORATORY Blood VENOUS LINE / Unknown Venipuncture / Unknown 05/02/2023 8:35 PM CDT 05/02/2023 8:41 PM CDT Slim Cali MD LAB - BLOOD ORDERABL ES Performing Organization Address [facility]/ZIP Co de Phone Number [facility] Lab [address] Lab (1st floor, no room number) [place] [phone] [place] [address] * EKG 12-lead, tracing only (05/02/2023 8:33 PM CDT) Systolic Blood Pressure mmHg RADIOLOGY RESULTS Diastolic Blood Pressure mmHg RADIOLOGY RESULTS Ventricular Rate 106 BPM RAD IOLOGY RESULTS Atrial Rate 106 BPM RADIOLOG Y RESULTS WV Interval 178 ms RADIOLOG Y RESULTS QRS Duration 86 ms RADIOLO GY RESULTS QT 344 ms RADIOLOGY RESULTS QTc 456 ms RADIOLOGY RESULTS P [place] 63 degrees RADIOLOGY RESULTS R AXIS 43 degrees RADIOLOGY RESULTS T [place] 29 degrees RADIOLOGY RESULTS Interpretation ECG Sinus tachycardia Otherwise normal ECG When compared with ECG of 02-MAY-2023 20:28, (unconfirmed) Fusion complexes are no longer Present Premature ventricular complexes are no longer Present Vent. rate has decreased BY ??58 BPM RADIOLOGY RESULTS 05/02/2023 8:33 PM CDT 05/02/2023 9:59 PM CDT Vineet Cui DO ECG ORDERABLES Performing Organization Address City/[facility]/ZIP Co de Phone Number RADIOLOGY RESULTS * EKG 12-lead, tracing only (05/02/2023 8:28 PM CDT) Systolic Blood Pressure mmHg RADIOLOGY RESULTS Diastolic Blood Pressure mmHg RADIOLOGY RESULTS Ventricular Rate 164 BPM RAD IOLOGY RESULTS Atrial Rate BPM RADIOLOG Y RESULTS WV Interval ms RADIOLOG Y RESULTS QRS Duration 86 ms RADIOLO GY RESULTS QT 292 ms RADIOLOGY RESULTS QTc 482 ms RADIOLOGY RESULTS P [place] degrees RADIOLOGY RESULTS R AXIS 63 degrees RADIOLOGY RESULTS T Tun[place] -3 degrees RADIOLOGY RESULTS Interpretation ECG Supraventricular tachycardia with Premature ventricular complexes or Fusion complexes Nonspecific ST abnormality Abnormal QRS-T angle, consider primary T wave abnormality Abnormal ECG No previous ECGs available Confirmed by - EMERGENCY ROOM, PHYSICIAN ([id number]), editor at large MODE VICK ([id number]) on 05/05/2023 7:13:18 AM [...] RN) documented in this encounter Care Teams Voting Machine Repairer Relationship Specialty Start Date End Date Roverto Morley MD [facility] EMERGENCY ROOM [address] [phone] PCP - General Family Medicine 07/05/22 documented as of this encounter
[2023-06-20 13:07] LABS: Albumin* 4.1 g/dL (3.3-5.0); Chloride* 108 mmol/L (96-114); Sodium* 139 mmol/L (135-149)
[2023-06-20 13:08] LABS: Potassium* 3.7 mmol/L (3.6-5.1)
[2023-06-20 13:10] LABS: Alanine Aminotransferase* 38 U/L (4-50); Alkaline Phosphatase* 72 U/L (40-150); Anion Gap 1 mEq/L (7-15); Aspartate Amino Transferase* 28 U/L (12-35); Bilirubin Total* 0.5 mg/dL (0.1-1.5); Blood Urea Nitrogen* 17 mg/dL (7-30); Carbon Dioxide* 30 mmol/L (20-32); Estimated Glomerular Filt Rate 89 ml/min; Total Protein* 6.7 g/dL (6.0-8.3)
[2023-06-20 13:11] LABS: Calcium* 9.5 mg/dL (8.4-10.6); Glucose* 103 mg/dL (60-115)
== END 2023-06-20 12:23 | disposition home or self-care (01) ==
LOC: NPINS 12:22
PROVIDERS: PCP Family Medicine; Visit Provider Urology
DX: C61 Malignant neoplasm of prostate (principal)
CPT/HCPCS: 80053

== ENCOUNTER 2023-07-11 12:43 | Outpatient (REF) | payer BC, SELFPAY ==
--- OUTSIDE RECORDS SUMMARY | 2023-07-11 12:47 | XMS_ITS | Clinical Summary ---
Author Organization [facility] Address [address] [place] [address] Care Team Providers Care Change Consultant Name Role Phone Roverto Morley MD Primary Care Provider [phone] Allergies Active Allergy Reactions Criticality Noted Date Comments Fumaric Acid Itching 10/27/2009 Morphine Itching,Unknown,Other (See Comments) High 11/27/2021 itching Medications No known medications Encounters Date Type Department Care Team Description 05/02/2023 8:25 PM CDT - 05/02/2023 9:33 PM CDT Emergency [facility] Emergency Dept [address] [place] [phone] Slim Cali MD Burns, Bradley Joseph, DO [...] Tube (05/02/2023 8:35 PM CDT) Hold Specimen [facility] 05/02/2023 9:46 PM CDT RH LABORATORY Blood VENOUS LINE / Unknown Venipuncture / Unknown 05/02/2023 8:35 PM CDT 05/02/2023 8:41 PM CDT Slim Cali MD LAB - BLOOD ORDERABL ES LABORATORY [facility] Acute Care Lab [address] [facility] Lab (1st floor, no room number) [place] [address] * Extra Green Top ([place] Heparin) Tube (05/02/2023 8:35 PM CDT) Hold Specimen [facility] 05/02/2023 9:46 PM CDT RH LABORATORY Blood VENOUS LINE / Unknown Venipuncture / Unknown 05/02/2023 8:35 PM CDT 05/02/2023 8:41 PM CDT Slim Cali MD LAB - BLOOD ORDERABL ES LABORATORY [facility] Acute Care Lab [address] Lab (1st floor, no room number) [place] [address] * Extra Red Top Tube (05/02/2023 8:35 PM CDT) Hold Specimen [facility] 05/02/2023 9:46 PM CDT RH LABORATORY Blood VENOUS LINE / Unknown Venipuncture / Unknown 05/02/2023 8:35 PM CDT 05/02/2023 8:41 PM CDT Slim Cali MD LAB - BLOOD ORDERABL ES [facility] Care Lab [address] Lab (1st floor, no room number) [place] [address] * Extra Blue Top Tube (05/02/2023 8:35 PM CDT) Hold Specimen [facility] 05/02/2023 9:46 PM CDT RH LABORATORY Blood VENOUS LINE / Unknown Venipuncture / Unknown 05/02/2023 8:35 PM CDT 05/02/2023 8:41 PM CDT Slim Cali MD LAB - BLOOD ORDERABL ES Performing Organization Address City/[facility]/ZIP Co de Phone Number LABORATORY [facility] Acute Care Lab [address] Lab (1st floor, no room number) [place] [address] * CBC with platelets and differential (05/02/2023 [...] LAB - BLOOD DRU ABEL RH LABORATORY [facility] Acute Care Lab [address] Lab (1st floor, no room number) [place] [address], [facility] * (ABNORMAL) Basic metabolic panel (05/02/2023 8:35 PM CDT) [facility] Sodium 141 135 - 145 mmol/L 05/02/2023 [...] Houston DO LAB - BLOOD DRU ROMAN [facility] Acute Care Lab [address] Lab (1st floor, no room number) [place] [address], [facility] * EKG 12-lead, tracing only (05/02/2023 8:33 PM CDT) Only the most recent of2 resultswithin the time period is included. Systolic Blood Pressure mmHg RADIOLOGY RESULTS Diastolic Blood Pressure mmHg RADIOLOGY RESULTS Ventricular Rate 106 BPM RAD IOLOGY RESULTS Atrial Rate 106 BPM RADIOLOG Y RESULTS NM Interval 178 ms RADIOLOG Y RESULTS QRS Duration 86 ms RADIOLO GY RESULTS QT 344 ms RADIOLOGY RESULTS QTc 456 ms RADIOLOGY RESULTS P [place] 63 degrees RADIOLOGY RESULTS R AXIS 43 degrees RADIOLOGY RESULTS T [place] 29 degrees RADIOLOGY RESULTS Interpretation ECG Sinus tachycardia Otherwise normal ECG When compared with ECG of 02-MAY-2023 20:28, (unconfirmed) Fusion complexes are no longer Present Premature ventricular complexes are no longer Present Vent. rate has decreased BY ??58 BPM RADIOLOGY RESULTS 05/02/2023 8:33 PM CDT 05/02/2023 9:59 PM CDT Vineet Houston DO ECG ORDERABLES RADIOLOGY RESULTS from Last 3 Months Care Teams Change Consultant Relationship Specialty Start Date End Date Roverto Morley MD [facility] [address] [address] PCP - General Family Medicine 07/05/22
--- OUTSIDE RECORDS SUMMARY | 2023-07-11 12:47 | XMS_ITS | Encounter Summary ---
Author Organization [facility] Address [address] [place] [address] Care Team Providers Care Scarfing Machine Operator Name Role Phone Roverto Morley MD Primary Care Provider [phone] Encounter Details Date Type Department Care Team [...] on filedocumented in this encounter Care Teams Scarfing Machine Operator Relationship Specialty Start Date End Date Roverto Morley MD [facility] [address] [address] PCP - General Family Medicine 07/05/22 documented as of this encounter
--- OUTSIDE RECORDS SUMMARY | 2023-07-11 12:47 | XMS_ITS | Encounter Summary ---
Author Organization [employer] Address [address] [place] [address] Care Team Providers Care Tax Services Professional Name Role Phone Roverto Morley MD Primary Care Provider [phone] Reason for Visit * Reason Comments Tachycardia Encounter Details Date Type Department Care Team (Late st Contact Info) Description 05/02/2023 8:25 PM CDT - 05/02/2023 9:[address] [facility] Emergency Dept [address] [place] [address] Slim Cali MD [facility] [address] [place] [address] Vineet Cui DO [facility] [address] [place] [address] SVT (supraventricular tachycardia) Discharge Disposition: Home or [...] sent through Care Everywhere. * Supraventricular Tachycardia (Latvian) documented in this encounter ED Notes * [...] 99 % O2 Device None (Room air) Symone Coma Scale Best Eye Response 4-->(E4) spontaneous Best Motor Response 6-->(M6) obeys commands Best Verbal Response 5-->(V5) oriented [place] Coma Scale Score 15 Weight & Height [...] wave abnormality Abnormal ECG Rate 164 bpm. MT interval * ms. QRS duration 86 ms. QT/QTc 292/482 ms. P-R-T axes * 63 -3. ECG #2 ECG taken at 2032, ECG read at 2032 Sinus tachycardia Otherwise normal ECG Sinus tachycardia is new as compared to 1st ECG. Rate 106 bpm. MT interval 178 ms. QRS duration 86 ms. [...] ED Course and MDM Impression & Plan [facility] Diagnoses: None Code Status: No Order MIPS [...] New Prescriptions No medications on file 05/02/2023 Cui, VineetDO Celso Hollins Bradley Joseph, DO 05/02/232121 documented in this [...] Vineet Cui DO LAB - BLOOD DRU [facility] LABORATORY [facility] Acute Care Lab [address] Lab (1st floor, no room number) [place] [address], [facility] * (ABNORMAL) Basic metabolic panel (05/02/2023 8:35 PM CDT) [facility] Sodium 141 135 - 145 mmol/L [...] CDT Vineet Cui DO LAB - BLOOD ORDE ABEL [facility] Lab [address] Lab (1st floor, no room number) [place] [address] * Extra Purple Top Tube (05/02/2023 8:35 PM CDT) Hold Specimen [facility] 05/02/2023 9:46 PM CDT RH LABORATORY Blood VENOUS LINE / Unknown Venipuncture / Unknown 05/02/2023 8:35 PM CDT 05/02/2023 8:41 PM CDT Slim Cali MD LAB - BLOOD ORDERABL ES Performing Organization Address City/[facility]/ZIP Co de Phone Number [facility] Lab [address] Lab (1st floor, no room number) [place] [address] * Extra Green Top ([place] Heparin) Tube (05/02/2023 8:35 PM CDT) Hold Specimen [facility] 05/02/2023 9:46 PM CDT RH LABORATORY Blood VENOUS LINE / Unknown Venipuncture / Unknown 05/02/2023 8:35 PM CDT 05/02/2023 8:41 PM CDT Slim Cali MD LAB - BLOOD ORDERABL ES [facility] Lab [address] Lab (1st floor, no room number) [place] [address] * Extra Red Top Tube (05/02/2023 8:35 PM CDT) Hold Specimen [facility] 05/02/2023 9:46 PM CDT RH LABORATORY Blood VENOUS LINE / Unknown Venipuncture / Unknown 05/02/2023 8:35 PM CDT 05/02/2023 8:41 PM CDT Slim Cali MD LAB - BLOOD ORDERABL ES LABORATORY [facility] Lab [address] [employer] [employer] Lab (1st floor, no room number) [place] [address] * Extra Blue Top Tube (05/02/2023 8:35 PM CDT) Hold Specimen [facility] 05/02/2023 9:46 PM CDT LABORATORY Blood VENOUS LINE / Unknown Venipuncture / Unknown 05/02/2023 8:35 PM CDT 05/02/2023 8:41 PM CDT Slim Cali MD LAB - BLOOD ORDERABL ES Performing Organization Address [facility]/ZIP Co de Phone Number [facility] Lab [address] Lab (1st floor, no room number) [place] [phone] * EKG 12-lead, tracing only (05/02/2023 8:33 PM CDT) Systolic Blood Pressure mmHg RADIOLOGY RESULTS Diastolic Blood Pressure mmHg RADIOLOGY RESULTS Ventricular Rate 106 BPM RAD IOLOGY RESULTS Atrial Rate 106 BPM RADIOLOG Y RESULTS MT Interval 178 ms RADIOLOG Y RESULTS QRS Duration 86 ms RADIOLO GY RESULTS QT 344 ms RADIOLOGY RESULTS QTc 456 ms RADIOLOGY RESULTS P [place] 63 degrees RADIOLOGY RESULTS R AXIS 43 degrees RADIOLOGY RESULTS T [place] 29 degrees RADIOLOGY RESULTS Interpretation ECG Sinus tachycardia Otherwise normal ECG When compared with ECG of 02-MAY-2023 20:28, (unconfirmed) Fusion complexes are no longer Present Premature ventricular complexes are no longer Present Vent. rate has decreased BY ??58 BPM RADIOLOGY RESULTS 05/02/2023 8:33 PM CDT 05/02/2023 9:59 PM CDT Vineet Cui DO ECG ORDERABLES RADIOLOGY RESULTS * EKG 12-lead, tracing only (05/02/2023 8:28 PM CDT) Systolic Blood Pressure mmHg RADIOLOGY RESULTS Diastolic Blood Pressure mmHg RADIOLOGY RESULTS Ventricular Rate 164 BPM RAD IOLOGY RESULTS Atrial Rate BPM RADIOLOG Y RESULTS MT Interval ms RADIOLOG Y RESULTS QRS Duration 86 ms RADIOLO GY RESULTS QT 292 ms RADIOLOGY RESULTS QTc 482 ms RADIOLOGY RESULTS P [place] degrees RADIOLOGY RESULTS R AXIS 63 degrees RADIOLOGY RESULTS T [place] -3 degrees RADIOLOGY RESULTS Interpretation ECG Supraventricular tachycardia with Premature ventricular complexes or Fusion complexes Nonspecific ST abnormality Abnormal QRS-T angle, consider primary T wave abnormality Abnormal ECG No previous ECGs available Confirmed by - EMERGENCY ROOM, PHYSICIAN ([id number]), medical editor MODE VICK ([id number]) on 05/05/2023 7:13:18 [...] 2052 ($New Bag - Pro vider: Qamar Priest RN)2121 (Stopped - Provider: Qamar Priest RN) documented in this encounter Care Teams Tax Services Professional Relationship Specialty Start Date End Date Roverto Morley MD [address] [phone] PCP - General Family Medicine 07/05/22 documented as of this encounter
--- OUTSIDE RECORDS SUMMARY | 2023-07-11 12:47 | XMS_ITS | Encounter Summary ---
Author Organization [employer] Address [address] [facility] [place] [address] Care Team Providers Care Manager Oracle Retail Name Role Phone Clinician, Not Found MD Primary Care Provider Un available Reason for Visit * Reason Comments Video Visit Follow-up MWM Encounter Details Date Type Department Care Team (Late st Contact Info) Description 05/27/2023 2:30 PM CDT Telemedicine [facility] [address] [facility] [address] [place], [place] [address] Nima Vizcaino MD [address] [place], [place] [phone] ASHLEY (obstructive sleep apnea) (Primary Dx); Prediabetes; [...] you in 3 months. Raza Vizcaino MD [facility] documented in [...] deficiency. Interim History - Last seen by PAReji/Bariatrician: 12/30/22 RP. - Working out 3 days a week. - Working on changing eating habits. Has cravings for sweets. - On Wegovy 2.4mg weekly. - Prostate cancer dx'd 2022 - had radiation treatment. Treatment through [facility]. He is on abiraterone & Eligard [...] Last 3 Encounters: 05/27/23 (!) 328 lb (463036 g) 12/29/22 (!) 317 lb (869611 g) 05/09/22 (!) 320 lb (806835 g) [facility] Assessment: Updating Your [...] 2 (188 cm) Wt (!) 328 lb (881049 g) BMI 42.11 kg/m?? General/constitutional: Alert in [...] index (BMI)of 40.0 to 44.9 in adult ([facility]) E66.01 semaglutide-weight management (WEGOVY) 2.4 MG/0.75ML pen injection Z68.41 metFORMIN (GLUCOPHAGE) 500 MG tablet 4. Morbid obesity with BMI of 40.0-44.9, adult ([facility]) E66.01 Z68.41 Plan for management includes the [...] up: in [address]aino [address] [facility] This service [...] Info) Description 09/04/2023 11:30 AM CDT Telemedicine [facility] [address] [facility] [address] [place], [place] [address] Nima Vizcaino MD [address] [place], [place] [address] documented as of this encounter Visit Diagnoses Diagnosis ASHLEY (obstructive sleep apnea)- Primary Obstructive sleep apnea (adult) (pediatric) Prediabetes Other abnormal glucose Class 3 severe obesity due to excess calories with serious comorbidity and body mass index (BMI) of 40.0 to 44.9 in adult (HRC) Morbid obesity with BMI of 40.0-44.9, adult ([facility]) documented in this encounter Care Teams Manager [employer] Retail Relationship Specialty Start Date End Date Clinician, Not Found, [place] [address] PCP - General 10/12/15 documented as of this encounter
--- OUTSIDE RECORDS SUMMARY | 2023-07-11 12:47 | XMS_ITS | Encounter Summary ---
Author Organization [employer] Address [address], [place] [address] Care Team Providers Care Principal Developer Name Role Phone Clinician, Not Found MD Primary Care Provider Un available Reason for Visit * Reason Comments Refill Encounter Details Date Type Department Care Team (Late Contact Info) Description 07/08/2023 Refill [facility] [address] [facility] [address] [place], [place] [address] Serenity Barry PA-C [address] [place], [place] [address] Refill Social History Tobacco Use Types Packs/Day Years [...] as of this encounter Plan of Treatment Upcoming Encounters Date Type Department Care Team (Late Contact Info) Description 09/04/2023 11:30 AM CDT Telemedicine [facility] [address] [facility] [address] [place], [place] [address] Nima Vizcaino MD [address] [place] [address] documented as of this encounter Visit Diagnoses Diagnosis Morbid obesity with BMI of 40.0-44.9, adult (HRC) documented in this encounter Care Teams Principal Developer Relationship Specialty Start Date End Date Clinician, Not Found, [place] [address] PCP - General 10/12/15 documented as of this encounter
--- OUTSIDE RECORDS SUMMARY | 2023-07-11 12:47 | XMS_ITS | Referral Summary ---
Author Organization [facility] Address [address] [place] [address] Care Team Providers Care Rn Relief Charge Name Role Phone Roverto Morley MD Primary Care Provider [phone] Encounters Date Type Department Care Team Description 05/02/2023 Travel 05/02/2023 8:25 PM CDT - 05/02/2023 9:33 PM CDT Emergency [facility] Emergency Dept [address] [place] [address] Slim Cali MD Burns, Bradley Joseph, SVT [...] Purple Top Tube (05/02/2023 8:35 PM CDT) [facility] Hold Specimen [facility] 05/02/2023 9:46 PM CDT LABORATORY Blood VENOUS LINE / Unknown Venipuncture / Unknown 05/02/2023 8:35 PM CDT 05/02/2023 8:41 PM CDT Slim Cali MD LAB - BLOOD ORDERABL ES LABORATORY [facility] Acute [facility] Lab [address] [facility] Lab (1st floor, no room number) [place] [phone] * Extra Green Top ([place] Heparin) Tube (05/02/2023 8:35 PM CDT) Hold Specimen [facility] 05/02/2023 9:46 PM CDT RH LABORATORY Blood VENOUS LINE / Unknown Venipuncture / Unknown 05/02/2023 8:35 PM CDT 05/02/2023 8:41 PM CDT Slim Cali MD LAB - BLOOD ORDERABL ES [facility] Care Lab [address] Lab (1st floor, no room number) [place] [phone] [place] [address] * Extra Red Top Tube (05/02/2023 8:35 PM CDT) Hold Specimen [facility] 05/02/2023 9:46 PM CDT RH LABORATORY Blood VENOUS LINE / Unknown Venipuncture / Unknown 05/02/2023 8:35 PM CDT 05/02/2023 8:41 PM CDT Slim Cali MD LAB - BLOOD ORDERABL ES [facility] Lab [address] Lab (1st floor, no room number) [place] [address] * Extra Blue Top Tube (05/02/2023 8:35 PM CDT) Hold Specimen [facility] 05/02/2023 9:46 PM CDT RH LABORATORY Blood VENOUS LINE / Unknown Venipuncture / Unknown 05/02/2023 8:35 PM CDT 05/02/2023 8:41 PM CDT Slim Cali MD LAB - BLOOD ORDERABL ES [facility] Acute Care Lab [address] Lab (1st floor, no room number) [place] [address] * CBC with platelets and differential (05/02/2023 8:35 PM CDT) [facility] WBC Count 5.1 4.0 - 11.0 10e3/uL [...] LAB - BLOOD ORDE ABEL RH LABORATORY [facility] Acute Care Lab [address] Lab (1st floor, no room number) [place] [address] * (ABNORMAL) Basic metabolic panel [...] - 10.0 mg/dL 05/02/2023 9:01 PM CDT RH LABORATORY Glucose 160(H) 70 - 99 mg/dL 05/02/2023 9:01 PM CDT RH LABORATORY Blood VENOUS LINE / Unknown Venipuncture / Unknown 05/02/2023 8:35 PM CDT 05/02/2023 8:41 PM CDT Vineet Houston DO LAB - BLOOD ORDE RABLES LABORATORY [facility] Acute Care Lab [address] Lab (1st floor, no room number) [place] [address], [facility] * EKG 12-lead, tracing only (05/02/2023 8:33 PM CDT) Only the most recent of2 resultswithin the time period is included. Systolic Blood Pressure mmHg RADIOLOGY RESULTS Diastolic Blood Pressure mmHg RADIOLOGY RESULTS Ventricular Rate 106 BPM RAD IOLOGY RESULTS Atrial Rate 106 BPM RADIOLOG Y RESULTS TN Interval 178 ms RADIOLOG Y RESULTS QRS Duration 86 ms RADIOLO GY RESULTS QT 344 ms RADIOLOGY RESULTS QTc 456 ms RADIOLOGY RESULTS P [place] 63 degrees RADIOLOGY RESULTS R AXIS 43 degrees RADIOLOGY RESULTS T [place] 29 degrees RADIOLOGY RESULTS Interpretation ECG Sinus tachycardia Otherwise normal ECG When compared with ECG of 02-MAY-2023 20:28, (unconfirmed) Fusion complexes are no longer Present Premature ventricular complexes are no longer Present Vent. rate has decreased BY ??58 BPM RADIOLOGY RESULTS 05/02/2023 8:33 PM CDT 05/02/2023 9:59 PM CDT Vineet Houston DO ECG ORDERABLES RADIOLOGY RESULTS from Last 3 Months Care Teams Rn Relief Charge Relationship Specialty Start Date End Date Roverto Morley MD [facility] [address] [address] PCP - General Family Medicine 07/05/22
--- OUTSIDE RECORDS SUMMARY | 2023-07-11 12:47 | XMS_ITS | Encounter Summary ---
Author Organization [employer] Address [address] [place] [address] Care Team Providers Care Continuous Linter Drier Operator Name Role Phone Clinician, Not Found MD Primary Care Provider Un available Reason for Visit * Reason Comments Prior Authorization For Medication Hunter EVANS Approved Encounter Details Date Type Department Care Team (Late st Contact Info) Description 04/09/2023 Telephone [facility] [address] [facility] [address] [place] [address] Mica Pruett industrial engineering For Medication (Héctor EVANS Approved) Social History [...] 3:00 PM CST Spoke with Rep at [facility]. Reinitiated PA. Wegovy 2.4 mg dose approved from 03/10/23 t0 04/08/23. NAILER documented in this encounter Plan of Treatment Upcoming Encounters Date Type Department Care Team (Late st Contact Info) Description 09/04/2023 11:30 AM CDT Telemedicine [facility] [address] [place], [place] [address] Nima Vizcaino MD [address] [place], [place] [address] documented as of this encounter Visit Diagnoses Not on filedocumented in this encounter Care Teams Continuous Linter Drier Operator Relationship Specialty Start Date End Date Clinician, Not Found, [place] [address] PCP - General 10/12/15 documented as of this encounter
--- OUTSIDE RECORDS SUMMARY | 2023-07-11 12:47 | XMS_ITS | Clinical Summary ---
Author Organization [employer] Address [address] [place] [address] Care Team Providers Care Nat Instructor Name Role Phone Clinician, Not Found MD Primary Care Provider Un available Source Comments You are receiving this document as you are listed as the primary care provider,follow-up provider, or the patient has been referred to you for consultation.This is in compliance with the Medicare andW[facility] Community Hospitalcaid EHR Incentive Program,which states Providers who transition their patient to another setting of careor provider of care or refers their patient to another provider of care shouldprovide summary care record for each transition of care or referral. [employer] Allergies Active Allergy Reactions Criticality Noted Date Comments Morphine Other, see comments High 11/27/2021 itching Fumaric Acid Itching 10/27/2009 Medications Medication Sig Dispensed Refills Start Date End Date Status MULTIPLE VITAMIN OR Active cholecalciferol (VITAMIND3) 50 MCG (1999) tabletIndications: Vitamin D deficiency (HRC) Take 1 Tablet (2,000 Units) by mouth daily. Do not start before April 26, 2022. 90 Tablet 04/26/2022 Active alfuzosin (UROXATRAL) 10 MG 24 hour release tablet Take 1 Tablet (10 mg) by mouth daily. 04/11/2022 Active ABIRATERONE ACETATE OR Active leuprolide, 4 month, (ELIGARD) 30 MG subcutaneous injection Inject 30 mg subcutaneously once. Active semaglutide-weight management (WEGOVY) 2.4 MG/0.75ML pen injectionIndicatio ns:Class 3 severe obesity due to excess calories with serious comorbidity and body mass index (BMI) of 40.0 to 44.9 in adult (C) Inject 0.75 mL (2.4 mg) subcutaneously once a week. 9 mL 1 05/27/2023 Active metFORMIN (GLUCOPHAGE) 500 MG tabletIndications: Class 3 severe obesity due to excess calories with serious comorbidity and body mass index (BMI) of 40.0 to 44.9 in adult ([facility]) Week one, take 1 tablet by mouth daily with dinner. Week two, take one tablet with breakfast and one with dinner. Week three, take one tablet with breakfast and two with dinner. Week four and beyond, take two tablets with breakfast and two with dinner. 310 Tablet 1 05/27/2023 Active Active Problems Problem Noted Date Diagnosed Date [...] Encounters Date Type Department Care Team Description 07/08/2023 Refill [facility] [address] [place], [place] [address] [place] [address] Serenity Barry PA-C Refill 05/27/2023 2:30 PM CDT Telemedicine [facility] [address] [place] [address] Nima Vizcaino MD ASHLEY (obstructive sleep apnea) (Primary Dx); Prediabetes; Class 3 severe obesity due to excess calories with serious comorbidity and body mass index (BMI) of 40.0 to 44.9 in adult ([facility]); Morbid obesity with BMI of 40.0-44.9, adult ([facility]) from Last 3 Months Immunizations Name Administration Dates Next Due Chicken Pox - History of Illness 11/24/1978 HepA Adult (19+ yrs) 02/15/2016 Influenza IIV4 (Quadrivalent) 0.5mL (54320) 06/2016 MMR 02/15/2016 Tdap 03/31/2014 Typhoid (Typhim [...] Info) Description 09/04/2023 11:30 AM CDT Telemedicine [facility] [address] [facility] [place] [address] Nima Vizcaino MD [address] [place] [address] Health Maintenance Due Date Last Done Comments [...] DIRECT LDL(IF NEEDED) (10/27/2009 2:43 PM CDT) Pathologist [facility] Cholesterol 160 0 - 199 mg/dl [facility] Triglyceride 227(H) 0 - 149 mg/dl [facility] HDL 40(L) >40 mg/dl [facility] LDL, Calc. 75 0 - 129 mg/dl [facility] Hours Fasting 4 hours [facility] 10/27/2009 2:43 PM CDT 10/27/2009 2:49 PM CDT Willard Chávez MD LAB_1 Performing Organization Address [facility] de Phone Number [facility] [address] [phone] * PSA (Screen) 3616 (10/27/2009 2:43 PM CDT) Prostatic Spec Ag 0.37 0.00 - 4.00 ng/ml [facility] 10/27/2009 2:43 PM CDT 10/27/2009 2:49 PM CDT Willard Chávez MD LAB_1 Performing Organization Address [facility] de Phone Number [facility] [address] [phone] from Last 3 Months or Most Recently Relevant to Health Maintenance Care Teams Nat Instructor Relationship Specialty Start Date End Date Clinician, Not Found, [place] [address] PCP - General 10/12/15
--- OUTSIDE RECORDS SUMMARY | 2023-07-11 12:47 | XMS_ITS | Clinical Summary ---
Author Organization [employer] Address [place], [place] [address] Care Team Providers Care Human Resources Records Clerk Name Role Phone Roverto Morley MD Primary Care Provider [phone] Social History Tobacco Use Types Packs/Day Years [...] (1 of 2) 10/24/2017 COVID-19 vaccine series (2022-24 season) 2022 01/26/2022, 01/15/2021, 06/20/2020, Additional history exists Influenza for age 50-64 10/12/2023 Pneumococcal series for age 6-64 Aged Out No longer eligible based on patient's age to complete this topic Care Teams Human Resources Records Clerk Relationship Specialty Start Date End Date Roverto Morley MD [address] [place] [address] PCP - General Family Practice 02/22/22
--- OUTSIDE RECORDS SUMMARY | 2023-07-11 12:47 | XMS_ITS | Encounter Summary ---
Author Organization [employer] Address [address], [place] [address] Care Team Providers Care Sales Account Representative Name Role Phone Clinician, Not Found MD Primary Care Provider Un available Reason for Visit * Reason Comments Prior Authorization For Medication Wegov y 2.4 mg -approved Encounter Details Date Type Department Care Team (Late st Contact Info) Description 04/03/2023 6:40 PM SOLUTIONS ARCHITECT CONSULTANT E-Visit [facility] [address] [facility] [address] [place], [place] [phone] Serenity Barry PA-C [address] [place], [place] [phone] Chief Comp: Prior Authorization For Medication Social [...] Received approval of flakito Approved from 03/10/23-04/08/24 TIONS ARCHITECT CONSULTANT documented in this encounter Plan of Treatment Upcoming Encounters Date Type Department Care Team (Late st Contact Info) Description 09/04/2023 11:30 AM CDT Telemedicine [facility] [address] [place], [place] [address] Nima Vizcaino MD [address] [place], [place] [phone] documented as of this encounter Visit Diagnoses Not on filedocumented in this encounter Care Teams Sales Account Representative Relationship Specialty Start Date End Date Clinician, Not Found, [place] [address] PCP - General 10/12/15 documented as of this encounter
[2023-07-11 13:52] LABS: Albumin* 4.3 g/dL (3.3-5.0); Chloride* 105 mmol/L (96-114); Sodium* 141 mmol/L (135-149)
[2023-07-11 13:53] LABS: Potassium* 4.2 mmol/L (3.6-5.1)
[2023-07-11 13:55] LABS: Alanine Aminotransferase* 36 U/L (4-50); Alkaline Phosphatase* 87 U/L (40-150); Anion Gap 7 mEq/L (7-15); Aspartate Amino Transferase* 25 U/L (12-35); Bilirubin Total* 0.6 mg/dL (0.1-1.5); Blood Urea Nitrogen* 18 mg/dL (7-30); Carbon Dioxide* 29 mmol/L (20-32); Creatinine* 0.9 mg/dL (0.5-1.5); Estimated Glomerular Filt Rate 101 ml/min; Glucose* 93 mg/dL (60-115); Total Protein* 7.2 g/dL (6.0-8.3)
[2023-07-11 13:56] LABS: Calcium* 9.3 mg/dL (8.4-10.6)
== END 2023-07-11 12:44 | disposition home or self-care (01) ==
LOC: NPINS 12:43
PROVIDERS: PCP Family Medicine; Visit Provider Urology
DX: C61 Malignant neoplasm of prostate (principal)
CPT/HCPCS: 80053

== ENCOUNTER 2023-07-31 22:28 | Outpatient (REF) | payer BC, SELFPAY ==
--- OUTSIDE RECORDS SUMMARY | 2023-07-31 22:31 | XMS_ITS | Clinical Summary ---
Author Organization [employer] Address [place], [place] [address] Care Team Providers Care Bilingual Call Center Representative Name Role Phone Roverto Morley MD Primary Care Provider [phone] Social History Tobacco Use Types Packs/Day Years [...] age to complete this topic Care Teams Bilingual Call Center Representative Relationship Specialty Start Date End Date Roverto Morley MD [address] [place] [address] PCP - General Family Practice 02/22/22
--- OUTSIDE RECORDS SUMMARY | 2023-07-31 22:31 | XMS_ITS | Clinical Summary ---
Author Organization [facility] Address [address] [place] [address] Care Team Providers Care Drive In Theater Attendant Name Role Phone Roverto Morley MD Primary Care Provider [phone] Allergies Active Allergy Reactions Criticality Noted Date Comments Fumaric Acid Itching 10/27/2009 Morphine Itching,Unknown,Other (See Comments) High 11/27/2021 itching Medications No known medications Encounters Date Type Department Care Team Description 05/02/2023 8:25 PM CDT - 05/02/2023 9:33 PM CDT Emergency [facility] Emergency Dept [address] [place] [address] Slim Cali MD Burns, Bradley Joseph, DO [...] Tube (05/02/2023 8:35 PM CDT) Hold Specimen [facility] 05/02/2023 9:46 PM CDT RH LABORATORY Blood VENOUS LINE / Unknown Venipuncture / Unknown 05/02/2023 8:35 PM CDT 05/02/2023 8:41 PM CDT Slim Cali MD LAB - BLOOD ORDERABL ES LABORATORY [facility] Lab [address] [facility] Lab (1st floor, no room number) [place] [address] * Extra Green Top ([place] Heparin) Tube (05/02/2023 8:35 PM CDT) Hold Specimen [facility] 05/02/2023 9:46 PM CDT RH LABORATORY Blood VENOUS LINE / Unknown Venipuncture / Unknown 05/02/2023 8:35 PM CDT 05/02/2023 8:41 PM CDT Slim Cali MD LAB - BLOOD ORDERABL ES LABORATORY [facility] Lab [address] Lab (1st floor, no room number) [place] [address] * Extra Red Top Tube (05/02/2023 8:35 PM CDT) Hold Specimen [facility] 05/02/2023 9:46 PM CDT RH LABORATORY Blood VENOUS LINE / Unknown Venipuncture / Unknown 05/02/2023 8:35 PM CDT 05/02/2023 8:41 PM CDT Slim Cali MD LAB - BLOOD ORDERABL ES [facility] Lab [address] Lab (1st floor, no room number) [place] [address] * Extra Blue Top Tube (05/02/2023 8:35 PM CDT) Hold Specimen [facility] 05/02/2023 9:46 PM CDT RH LABORATORY Blood VENOUS LINE / Unknown Venipuncture / Unknown 05/02/2023 8:35 PM CDT 05/02/2023 8:41 PM CDT Slim Cali MD LAB - BLOOD ORDERABL ES Performing Organization Address City/[facility]/ZIP Co de Phone Number LABORATORY [facility] Lab [address] Lab (1st floor, no room number) [place] [address] * CBC with platelets and [...] LAB - BLOOD DRU ABEL RH LABORATORY [facility] Lab [address] Lab (1st floor, no room number) [place] [address], [facility] * (ABNORMAL) Basic metabolic panel (05/02/2023 8:35 PM CDT) [facility] Sodium 141 135 - 145 mmol/L [...] Houston DO LAB - BLOOD DRU ROMAN [facility] Acute Care Lab [address] Lab (1st floor, no room number) [place] [address], [facility] * EKG 12-lead, tracing only (05/02/2023 8:33 PM CDT) Only the most recent of2 resultswithin the time period is included. Systolic Blood Pressure mmHg RADIOLOGY RESULTS Diastolic Blood Pressure mmHg RADIOLOGY RESULTS Ventricular Rate 106 BPM RAD IOLOGY RESULTS Atrial Rate 106 BPM RADIOLOG Y RESULTS AR Interval 178 ms RADIOLOG Y RESULTS QRS Duration 86 ms RADIOLO GY RESULTS QT 344 ms RADIOLOGY RESULTS QTc 456 ms RADIOLOGY RESULTS P [place] 63 degrees RADIOLOGY RESULTS R AXIS 43 degrees RADIOLOGY RESULTS T [place] 29 degrees RADIOLOGY RESULTS Interpretation ECG Sinus tachycardia Otherwise normal ECG When compared with ECG of 02-MAY-2023 20:28, (unconfirmed) Fusion complexes are no longer Present Premature ventricular complexes are no longer Present Vent. rate has decreased BY ??58 BPM RADIOLOGY RESULTS 05/02/2023 8:33 PM CDT 05/02/2023 9:59 PM CDT Vineet Houston DO ECG ORDERABLES RADIOLOGY RESULTS from Last [address] In Theater Attendant Relationship Specialty Start Date End Date Roverto Morley MD [facility] [address] [address] PCP - General Family Medicine 07/05/22
--- OUTSIDE RECORDS SUMMARY | 2023-07-31 22:32 | XMS_ITS | Encounter Summary ---
Author Organization [facility] Address [address] [place] [address] Care Team Providers Care Cardiographer Name Role Phone Roverto Morley MD Primary Care Provider [phone] Reason for Visit * Reason Comments Tachycardia Encounter Details Date Type Department Care Team (Late st Contact Info) Description 05/02/2023 8:25 PM CDT - 05/02/2023 9:33 PM CDT Emergency [facility] Emergency Dept [address] [place] [address] Slim Cali MD [facility] [address] [place] [address] Vineet Cui DO [facility] [address] [place] [address] SVT (supraventricular tachycardia) Discharge Disposition: Home or [...] sent through Care Everywhere. * Supraventricular Tachycardia (Hungarian) documented in this encounter ED Notes * [...] wave abnormality Abnormal ECG Rate 164 bpm. ME interval * ms. QRS duration 86 ms. QT/QTc 292/482 ms. P-R-T axes * 63 -3. ECG #2 ECG taken at 2032, ECG read at 2032 Sinus tachycardia Otherwise normal ECG Sinus tachycardia is new as compared to 1st ECG. Rate 106 bpm. ME interval 178 ms. QRS duration 86 ms. [...] ED Course and MDM Impression & Plan [facility] Diagnoses: None Code Status: No Order [...] Vineet Cui DO LAB - BLOOD DRU JOSEPHMARY RH LABORATORY [facility] Acute Care Lab [address] Lab (1st floor, no room number) [place] [address], [facility] * (ABNORMAL) Basic metabolic panel (05/02/2023 8:35 PM CDT) [facility] Sodium 141 135 - 145 mmol/L [...] Cui DO LAB - BLOOD ORDE ABEL [facility] Lab [address] Lab (1st floor, no room number) [place] [address] * Extra Purple Top Tube (05/02/2023 8:35 PM CDT) Hold Specimen [facility] 05/02/2023 9:46 PM CDT RH LABORATORY Blood VENOUS LINE / Unknown Venipuncture / Unknown 05/02/2023 8:35 PM CDT 05/02/2023 8:41 PM CDT Slim Cali MD LAB - BLOOD ORDERABL ES Performing Organization Address City/[facility]/ZIP Co de Phone Number [facility] Lab [address] Lab (1st floor, no room number) [place] [address] * Extra Green Top ([place] Heparin) Tube (05/02/2023 8:35 PM CDT) Hold Specimen [facility] 05/02/2023 9:46 PM CDT RH LABORATORY Blood VENOUS LINE / Unknown Venipuncture / Unknown 05/02/2023 8:35 PM CDT 05/02/2023 8:41 PM CDT Slim Cali MD LAB - BLOOD ORDERABL ES [facility] Lab [address] Lab (1st floor, no room number) [place] [address] * Extra Red Top Tube (05/02/2023 8:35 PM CDT) Hold Specimen [facility] 05/02/2023 9:46 PM CDT RH LABORATORY Blood VENOUS LINE / Unknown Venipuncture / Unknown 05/02/2023 8:35 PM CDT 05/02/2023 8:41 PM CDT Slim Cali MD LAB - BLOOD ORDERABL ES LABORATORY [facility] Acute Care Lab [address] Lab (1st floor, no room number) [place] [address] * Extra Blue Top Tube (05/02/2023 8:35 PM CDT) Hold Specimen [facility] 05/02/2023 9:46 PM CDT LABORATORY Blood VENOUS LINE / Unknown Venipuncture / Unknown 05/02/2023 8:35 PM CDT 05/02/2023 8:41 PM CDT Slim Cali MD LAB - BLOOD ORDERABL ES Performing Organization Address [facility]/ZIP Co de Phone Number [facility] Lab [address] Lab (1st floor, no room number) [place] [phone] * EKG 12-lead, tracing only (05/02/2023 8:33 PM CDT) Systolic Blood Pressure mmHg RADIOLOGY RESULTS Diastolic Blood Pressure mmHg RADIOLOGY RESULTS Ventricular Rate 106 BPM RAD IOLOGY RESULTS Atrial Rate 106 BPM RADIOLOG Y RESULTS ME Interval 178 ms RADIOLOG Y RESULTS QRS Duration 86 ms RADIOLO GY RESULTS QT 344 ms RADIOLOGY RESULTS QTc 456 ms RADIOLOGY RESULTS P [place] 63 degrees RADIOLOGY RESULTS R AXIS 43 degrees RADIOLOGY RESULTS T [place] 29 degrees RADIOLOGY RESULTS Interpretation ECG Sinus [...] RESULTS Atrial Rate BPM RADIOLOG Y RESULTS ME Interval ms RADIOLOG Y RESULTS QRS Duration 86 ms RADIOLO GY RESULTS QT 292 ms RADIOLOGY RESULTS QTc 482 ms RADIOLOGY RESULTS P [place] degrees RADIOLOGY RESULTS R AXIS 63 degrees RADIOLOGY RESULTS T [place] -3 degrees RADIOLOGY RESULTS Interpretation ECG Supraventricular tachycardia with Premature ventricular complexes or Fusion complexes Nonspecific ST abnormality Abnormal QRS-T angle, consider primary T wave abnormality Abnormal ECG No previous ECGs available Confirmed by - EMERGENCY ROOM, PHYSICIAN ([id number]), tape editor MODE VICK ([id number]) on 05/05/2023 7:13:18 [...] RN) documented in this encounter Care Teams Cardiographer Relationship Specialty Start Date End Date Roverto Morley MD [address] [id number] PCP - General Family Medicine 07/05/22 documented as of this encounter
--- OUTSIDE RECORDS SUMMARY | 2023-07-31 22:32 | XMS_ITS | Clinical Summary ---
Author Organization [employer] Address [address] [place] [address] Care Team Providers Care Jewel Sorter Name Role Phone Clinician, Not Found MD Primary Care Provider Un available Source Comments You are receiving this document as you are listed as the primary care provider,follow-up provider, or the patient has been referred to you for consultation.This is in compliance with the Medicare and[facility] EHR Incentive Program,which states Providers who transition their patient to another setting of careor provider of care or refers their patient to another provider of care shouldprovide summary care record for each transition of care or referral. [employer] Allergies Active Allergy Reactions Criticality Noted [...] (BMI) of 40.0 to 44.9 in adult ([facility]) Week one, take 1 tablet by [...] Type Department Care Team Description 07/08/2023 Refill [facility] [address] [place], [place] [address] [address] [place] [address] Serenity Barry PA-C Refill 05/27/2023 2:30 PM CDT Telemedicine [facility] [address] [facility] [address] [place] [address] Nima Vizcaino MD ASHLEY (obstructive sleep apnea) (Primary Dx); Prediabetes; Class 3 severe obesity due to excess calories with serious comorbidity and body mass index (BMI) of 40.0 to 44.9 in adult ([facility]); Morbid obesity with BMI of 40.0-44.9, adult ([facility]) from Last 3 Months Immunizations Name Administration Dates Next Due Chicken Pox - History of Illness 11/24/1978 HepA Adult (19+ yrs) 02/15/2016 Influenza IIV4 (Quadrivalent) 0.5mL (30380) 06/2016 MMR 02/15/2016 Tdap 03/31/2014 Typhoid (Typhim [...] Info) Description 09/04/2023 11:30 AM CDT Telemedicine [facility] [address] [facility] [place] [address] Nima Vizcaino MD [address] [place] [address] Health Maintenance Due Date Last Done Comments [...] LDL(IF NEEDED) (10/27/2009 2:43 PM CDT) Pathologist [facility] Cholesterol 160 0 - 199 mg/dl [facility] Triglyceride 227(H) 0 - 149 mg/dl [facility] HDL 40(L) >40 mg/dl [facility] LDL, Calc. 75 0 - 129 mg/dl [facility] Hours Fasting 4 hours [facility] 10/27/2009 2:43 PM CDT 10/27/2009 2:49 PM CDT Willard Chávez MD LAB_1 Performing Organization Address [facility] de Phone Number [facility] [address] [phone] * PSA (Screen) 3616 (10/27/2009 2:43 PM CDT) Prostatic Spec Ag 0.37 0.00 - 4.00 ng/ml [facility] 10/27/2009 2:43 PM CDT 10/27/2009 2:49 PM CDT Willard Chávez MD LAB_1 Performing Organization Address [facility] de Phone Number [facility] [address] [phone] from Last 3 Months or Most Recently Relevant to Health Maintenance Care Teams Jewel Sorter Relationship Specialty Start Date End Date Clinician, Not Found, [place] [address] PCP - General 10/12/15
--- OUTSIDE RECORDS SUMMARY | 2023-07-31 22:32 | XMS_ITS | Encounter Summary ---
Author Organization [place] Address [address] [place] [address] Care Team Providers Care Structural Design Engineer Name Role Phone Roverto Morley MD Primary Care Provider [phone] Encounter Details Date Type Department Care Team [...] on filedocumented in this encounter Care Teams Structural Design Engineer Relationship Specialty Start Date End Date Roverto Morley MD [facility] [address] [address] PCP - General Family Medicine 07/05/22 documented as of this encounter
--- OUTSIDE RECORDS SUMMARY | 2023-07-31 22:32 | XMS_ITS | Encounter Summary ---
Author Organization [employer] Address [address], [place] [address] Care Team Providers Care Personal Lines Sales Executive Name Role Phone Clinician, Not Found MD Primary Care Provider Un available Reason for Visit * Reason Comments Refill Encounter Details Date Type Department Care Team (Late st Contact Info) Description 07/08/2023 Refill [facility] [address] [facility] [address] [place], [place] [phone] Serenity Barry PA-C [address] [place], [place] [address] Refill Social History Tobacco Use Types Packs/Day [...] as of this encounter Nursing Notes * Juan Pablo Funes RN - 07/16/2023 9:07 AM CDT Refused- patient on 2.4 mg dose Last dispensed: (copy and paste last Rx written) Name from pharmacy: WEGOVY 1.7 MG/0.75 ML PEN Will file in chart as: WEGOVY 1.7 MG/0.75ML pen injection Sig: Inject 0.75 mL (1.7 mg) subcutaneously once a week for 28 days. To start after completing of 4weeks of 1.0 mg dose Do not start before August 01, 2022. Disp: Not specified (Pharmacy requested: 3 Unspecified) Refills: Not specified Start: 07/08/2023 Class: Normal Non-formulary For: Morbid obesity with BMI of 40.0-44.9, adult ([facility]) Last ordered: 1 year ago (05/09/2022) by Serenity Barry PA-C Last refill: 07/25/2022 Rx #: [id number] Juan Pablo Funes RN 9:08 AM 07/16/2023 documented in this encounter Plan of Treatment Upcoming Encounters Date Type Department Care Team (Late st Contact Info) Description 09/04/2023 11:30 AM CDT Telemedicine [facility] [address] [facility] [address] [place], [place] [address] Nima Vizcaino MD [address] [place], [place] [address] documented as of this encounter Visit Diagnoses Diagnosis Morbid obesity with BMI of 40.0-44.9, adult ([facility]) documented in this encounter Care Teams Personal Lines Sales Executive Relationship Specialty Start Date End Date Clinician, Not Found, [place] [address] PCP - General 10/12/15 documented as of this encounter
--- OUTSIDE RECORDS SUMMARY | 2023-07-31 22:32 | XMS_ITS | Referral Summary ---
Author Organization [facility] Address [address] [place] [address] Care Team Providers Care Wide Piece Goods Inspector Name Role Phone Roverto Morley MD Primary Care Provider [phone] Encounters Date Type Department Care Team Description 05/02/2023 Travel 05/02/2023 8:25 PM CDT - 05/02/2023 9:33 PM CDT Emergency [facility] Emergency Dept [address] [place] [address] Slim Cali MD Burns, Bradley Joseph, SVT [...] Purple Top Tube (05/02/2023 8:35 PM CDT) [facility] Hold Specimen [facility] 05/02/2023 9:46 PM CDT LABORATORY Blood VENOUS LINE / Unknown Venipuncture / Unknown 05/02/2023 8:35 PM CDT 05/02/2023 8:41 PM CDT Slim Cali MD LAB - BLOOD ORDERABL ES LABORATORY [facility] Acute Care Lab [address] [facility] Lab (1st floor, no room number) [place] [phone] * Extra Green Top ([place] Heparin) Tube (05/02/2023 8:35 PM CDT) Hold Specimen [facility] 05/02/2023 9:46 PM CDT RH LABORATORY Blood VENOUS LINE / Unknown Venipuncture / Unknown 05/02/2023 8:35 PM CDT 05/02/2023 8:41 PM CDT Slim Cali MD LAB - BLOOD ORDERABL ES [facility] Care Lab [address] Lab (1st floor, no room number) [place] [phone] [place] [address] * Extra Red Top Tube (05/02/2023 8:35 PM CDT) Hold Specimen [facility] 05/02/2023 9:46 PM CDT RH LABORATORY Blood VENOUS LINE / Unknown Venipuncture / Unknown 05/02/2023 8:35 PM CDT 05/02/2023 8:41 PM CDT Slim Cali MD LAB - BLOOD ORDERABL ES [facility] Lab [address] Lab (1st floor, no room number) [place] [address] * Extra Blue Top Tube (05/02/2023 8:35 PM CDT) Hold Specimen [facility] 05/02/2023 9:46 PM CDT RH LABORATORY Blood VENOUS LINE / Unknown Venipuncture / Unknown 05/02/2023 8:35 PM CDT 05/02/2023 8:41 PM CDT Slim Cali MD LAB - BLOOD ORDERABL ES [facility] Acute Care Lab [address] Lab (1st floor, no room number) [place] [address] * CBC with platelets and differential (05/02/2023 8:35 PM CDT) [facility] WBC Count 5.1 4.0 - 11.0 10e3/uL [...] LAB - BLOOD ORDE ABEL RH LABORATORY [facility] Acute Care Lab [address] Lab (1st floor, no room number) [place] [address] * (ABNORMAL) Basic metabolic panel (05/02/2023 [...] DO LAB - BLOOD ORDE RABLES LABORATORY [facility] Acute Care Lab [address] Lab (1st floor, no room number) [place] [address], [facility] * EKG 12-lead, tracing only (05/02/2023 8:33 PM CDT) Only the most recent of2 resultswithin the time period is included. Systolic Blood Pressure mmHg RADIOLOGY RESULTS Diastolic Blood Pressure mmHg RADIOLOGY RESULTS Ventricular Rate 106 BPM RAD IOLOGY RESULTS Atrial Rate 106 BPM RADIOLOG Y RESULTS GA Interval 178 ms RADIOLOG Y RESULTS QRS Duration 86 ms RADIOLO GY RESULTS QT 344 ms RADIOLOGY RESULTS QTc 456 ms RADIOLOGY RESULTS P [place] 63 degrees RADIOLOGY RESULTS R AXIS 43 degrees RADIOLOGY RESULTS T [place] 29 degrees RADIOLOGY RESULTS Interpretation ECG Sinus tachycardia Otherwise normal ECG When compared with ECG of 02-MAY-2023 20:28, (unconfirmed) Fusion complexes are no longer Present Premature ventricular complexes are no longer Present Vent. rate has decreased BY ??58 BPM RADIOLOGY RESULTS 05/02/2023 8:33 PM CDT 05/02/2023 9:59 PM CDT Vineet Houston DO ECG ORDERABLES RADIOLOGY RESULTS from Last 3 Months Care Teams Wide Piece Goods Inspector Relationship Specialty Start Date End Date Roverto Morley MD [facility] [address] [address] PCP - General Family Medicine 07/05/22
--- OUTSIDE RECORDS SUMMARY | 2023-07-31 22:32 | XMS_ITS | Encounter Summary ---
Author Organization [employer] Address [address] [facility] [place] [address] Care Team Providers Care Electrotype Molder Name Role Phone Clinician, Not Found MD Primary Care Provider Un available Reason for Visit * Reason Comments Video Visit Follow-up MWM Encounter Details Date Type Department Care Team (Late st Contact Info) Description 05/27/2023 2:30 PM CDT Telemedicine [facility] [address] [facility] [address] [place], [place] [address] Nima Vizcaino MD [address] [place], [place] [phone] ASHLEY (obstructive sleep apnea) (Primary Dx); Prediabetes; [...] you in 3 months. Raza Vizcaino MD [facility] documented [...] 2022 - had radiation treatment. Treatment through [facility]. He is on abiraterone & Eligard [...] Last 3 Encounters: 05/27/23 (!) 328 lb (934281 g) 12/29/22 (!) 317 lb (034582 g) 05/09/22 (!) 320 lb (652738 g) [facility] Assessment: Updating Your [...] 2 (188 cm) Wt (!) 328 lb (177281 g) BMI 42.11 kg/m?? General/constitutional: Alert in [...] index (BMI)of 40.0 to 44.9 in adult ([facility]) E66.01 semaglutide-weight management (WEGOVY) 2.4 MG/0.75ML pen injection Z68.41 metFORMIN (GLUCOPHAGE) 500 MG tablet 4. Morbid obesity with BMI of 40.0-44.9, adult ([facility]) E66.01 Z68.41 Plan for management includes [...] up: in 3 months. Raza Vizcaino MD [facility] This [...] Info) Description 09/04/2023 11:30 AM CDT Telemedicine [facility] [address] [facility] [address] [place], [place] [address] Nima Vizcaino MD [address] [place], [place] [address] documented as of this encounter Visit Diagnoses Diagnosis ASHLEY (obstructive sleep apnea)- Primary Obstructive sleep apnea (adult) (pediatric) Prediabetes Other abnormal glucose Class 3 severe obesity due to excess calories with serious comorbidity and body mass index (BMI) of 40.0 to 44.9 in adult ([facility]) Morbid obesity with BMI of 40.0-44.9, adult ([facility]) documented in this encounter Care Teams Electrotype Molder Relationship Specialty Start Date End Date Clinician, Not Found, [place] [address] PCP - General 10/12/15 documented as of this encounter
[2023-08-01 00:08] LABS: Alanine Aminotransferase* 34 U/L (4-50); Albumin* 4.3 g/dL (3.3-5.0); Alkaline Phosphatase* 82 U/L (40-150); Anion Gap 7 mEq/L (7-15); Aspartate Amino Transferase* 28 U/L (12-35); Bilirubin Total* 0.5 mg/dL (0.1-1.5); Blood Urea Nitrogen* 15 mg/dL (7-30); Calcium* 9.6 mg/dL (8.4-10.6); Carbon Dioxide* 27 mmol/L (20-32); Chloride* 105 mmol/L (96-114); Creatinine* 0.8 mg/dL (0.5-1.5); Estimated Glomerular Filt Rate 105 ml/min; Glucose* 94 mg/dL (60-115); Potassium* 4.3 mmol/L (3.6-5.1); Sodium* 139 mmol/L (135-149); Total Protein* 6.9 g/dL (6.0-8.3)
== END 2023-07-31 22:29 | disposition home or self-care (01) ==
LOC: NPINS 22:28
PROVIDERS: PCP Family Medicine
DX: Z00.00 Encounter for general adult medical examination without abnormal findings (principal); R79.89 Other specified abnormal findings of blood chemistry; E66.9 Obesity, unspecified; R73.03 Prediabetes; C61 Malignant neoplasm of prostate
CPT/HCPCS: 80053; 80061; 82306

== ENCOUNTER 2023-08-15 13:29 | Outpatient (REF) | payer BC, SELFPAY ==
--- OUTSIDE RECORDS SUMMARY | 2023-08-15 13:34 | XMS_ITS | Encounter Summary ---
Author Organization [employer] Address [address] [facility] [place] [address] Care Team Providers Care Director Epidemiology Name Role Phone Clinician, Not Found MD Primary Care Provider Un available Reason for Visit * Reason Comments Video Visit Follow-up MWM Encounter Details Date Type Department Care Team (Late st Contact Info) Description 05/27/2023 2:30 PM CDT Telemedicine [facility] [address] [facility] [address] [place], [place] [address] Nima Vizcaino MD [address] [place], [place] [phone] ASHLEY (obstructive sleep apnea) (Primary Dx); Prediabetes; [...] you in 3 months. Raza Vizcaino MD [facility] documented in [...] 2022 - had radiation treatment. Treatment through [facility]. He is on abiraterone & Eligard [...] Last 3 Encounters: 05/27/23 (!) 328 lb (859475 g) 12/29/22 (!) 317 lb (121628 g) 05/09/22 (!) 320 lb (342425 g) [facility] Assessment: Updating Your [...] 2 (188 cm) Wt (!) 328 lb (715203 g) BMI 42.11 kg/m?? General/constitutional: Alert in [...] index (BMI)of 40.0 to 44.9 in adult ([facility]) E66.01 semaglutide-weight management (WEGOVY) 2.4 MG/0.75ML pen injection Z68.41 metFORMIN (GLUCOPHAGE) 500 MG tablet 4. Morbid obesity with BMI of 40.0-44.9, adult ([facility]) E66.01 Z68.41 Plan for management includes [...] up: in 3 months. Raza Vizcaino MD [facility] This service [...] Info) Description 09/04/2023 11:30 AM CDT Telemedicine [facility] [address] [facility] [address] [place], [place] [address] Nima Vizcaino MD [address] [place], [place] [address] documented as of this encounter Visit Diagnoses Diagnosis ASHLEY (obstructive sleep apnea)- Primary Obstructive sleep apnea (adult) (pediatric) Prediabetes Other abnormal glucose Class 3 severe obesity due to excess calories with serious comorbidity and body mass index (BMI) of 40.0 to 44.9 in adult ([facility]) Morbid obesity with BMI of 40.0-44.9, adult ([facility]) documented in this encounter Care Teams Director Epidemiology Relationship Specialty Start Date End Date Clinician, Not Found, [place] [address] PCP - General 10/12/15 documented as of this encounter
--- OUTSIDE RECORDS SUMMARY | 2023-08-15 13:34 | XMS_ITS | Clinical Summary ---
Author Organization [facility] Address [address] [place] [address] Care Team Providers Care Surgical Training Specialist Name Role Phone Roverto Morley MD Primary Care Provider [phone] Allergies Active Allergy Reactions Criticality Noted Date [...] Procedure Name Priority Date/Time Associated Diagnosis Comments BASIC METABOLIC PANEL STAT 05/02/2023 8:35 PM CDT from Last 3 Months or Most Recently Relevant to Health Maintenance Results * (ABNORMAL) Basic metabolic panel (05/02/2023 8:35 PM CDT) Pathologist [facility] Sodium 141 135 - 145 mmol/L 05/02/2023 [...] CDT Vineet Houston DO LAB - BLOOD [facility] Acute Care Lab [address] Lab (1st floor, no room number) [place] [address], [facility] from Last 3 Months or Most Recently Relevant to Health Maintenance Care Teams Surgical Training Specialist Relationship Specialty Start Date End Date Roverto Morley MD [facility] [address] [place] [address] PCP - General Family Medicine 07/05/22
--- OUTSIDE RECORDS SUMMARY | 2023-08-15 13:34 | XMS_ITS | Clinical Summary ---
Author Organization [facility] Address [address] [place] [address] Care Team Providers Care Search Lead Name Role Phone Clinician, Not Found MD Primary Care Provider Un available Source Comments You are receiving this document as you are listed as the primary care provider,follow-up provider, or the patient has been referred to you for consultation.This is in compliance with the Medicare and[facility] EHR Incentive Program,which states Providers who transition their patient to another setting of careor provider of care or refers their patient to another provider of care shouldprovide summary care record for each transition of care or referral. [facility] Allergies Active Allergy Reactions Criticality Noted Date [...] (BMI) of 40.0 to 44.9 in adult ([facility]) Week one, take 1 tablet by [...] Type Department Care Team Description 07/08/2023 Refill [facility] [address] [place], [place] [address] [place] [address] Serenity Barry PA-C Refill 05/27/2023 2:30 PM CDT Telemedicine [facility] [address] [place] [address] Nima Vizcaino MD ASHLEY (obstructive sleep apnea) (Primary Dx); Prediabetes; Class 3 severe obesity due to excess calories with serious comorbidity and body mass index (BMI) of 40.0 to 44.9 in adult ([facility]); Morbid obesity with BMI of 40.0-44.9, adult ([facility]) from Last 3 Months Immunizations Name Administration Dates Next Due Chicken Pox - History of Illness 11/24/1978 HepA Adult (19+ yrs) 02/15/2016 Influenza IIV4 (Quadrivalent) 0.5mL (25977) 06/2016 MMR 02/15/2016 Tdap 03/31/2014 Typhoid (Typhim [...] Info) Description 09/04/2023 11:30 AM CDT Telemedicine [facility] [address] [facility] [place] [address] Nima Vizcaino MD [address] [place] [address] Health Maintenance Due Date Last Done Comments [...] LDL(IF NEEDED) (10/27/2009 2:43 PM CDT) Pathologist [facility] Cholesterol 160 0 - 199 mg/dl [facility] Triglyceride 227(H) 0 - 149 mg/dl [facility] HDL 40(L) >40 mg/dl [facility] LDL, Calc. 75 0 - 129 mg/dl [facility] Hours Fasting 4 hours [facility] 10/27/2009 2:43 PM CDT 10/27/2009 2:49 PM CDT Willard Chávez MD LAB_1 Performing Organization Address [facility] de Phone Number [facility] [address] [phone] * PSA (Screen) 3616 (10/27/2009 2:43 PM CDT) Prostatic Spec Ag 0.37 0.00 - 4.00 ng/ml [facility] 10/27/2009 2:43 PM CDT 10/27/2009 2:49 PM CDT Willard Chávez MD LAB_1 Performing Organization Address [facility] de Phone Number [facility] [address] [phone] from Last 3 Months or Most Recently Relevant to Health Maintenance Care Teams Search Lead Relationship Specialty Start Date End Date Clinician, Not Found, [place] [address] PCP - General 10/12/15
--- OUTSIDE RECORDS SUMMARY | 2023-08-15 13:34 | XMS_ITS | Encounter Summary ---
Author Organization [employer] Address [address] [address] Care Team Providers Care Self Propelled Mining Machine Operator Name Role Phone Clinician, Not Found MD Primary Care Provider Un available Reason for Visit * Reason Comments Refill Encounter Details Date Type Department Care Team (Late st Contact Info) Description 07/08/2023 Refill [facility] [address] [facility] [address] [place], [place] [phone] Serenity Barry PA-C [address] [place], [place] [address] Refill Social History Tobacco Use Types Packs/Day [...] Barry PA-C Last refill: 07/25/2022 Rx #: [id number] Juan Pablo Funes RN 9:08 AM 07/16/2023 documented in this encounter Plan of Treatment Upcoming Encounters Date Type Department Care Team (Late st Contact Info) Description 09/04/2023 11:30 AM CDT Telemedicine [facility] [address] [facility] [address] [place], [place] [address] Nima Vizcaino MD [address] [place], [place] [address] documented as of this encounter Visit Diagnoses Diagnosis Morbid obesity with BMI of 40.0-44.9, adult ([facility]) documented in this encounter Care Teams Self Propelled Mining Machine Operator Relationship Specialty Start Date End Date Clinician, Not Found, [place] [address] PCP - General 10/12/15 documented as of this encounter
--- OUTSIDE RECORDS SUMMARY | 2023-08-15 13:34 | XMS_ITS | Clinical Summary ---
Author Organization [employer] Address [place], [place] [address] Care Team Providers Care Pit And Auxiliaries Supervisor Name Role Phone Roverto Morley MD Primary Care Provider Social History Tobacco Use Types Packs/Day Years [...] age to complete this topic Care Teams Pit And Auxiliaries Supervisor Relationship Specialty Start Date End Date Roverto Morley MD [address] [place] [address] PCP - General Family Practice 02/22/22
--- OUTSIDE RECORDS SUMMARY | 2023-08-15 13:34 | XMS_ITS | Referral Summary ---
Author Organization [facility] Address [address] [place] [address] Care Team Providers Care Medical Technologist Blood Bank Name Role Phone Roverto Morley MD Primary Care Provider Allergies Active Allergy Reactions Criticality Noted Date [...] DO LAB - BLOOD [facility] Lab [address] [facility] Lab (1st floor, no room number) [place] [address], [facility] from Last 3 Months or Most Recently Relevant to Health Maintenance Care Teams Medical Technologist Blood Bank Relationship Specialty Start Date End Date Roverto Morley MD [facility] [address] [place] [address] PCP - General Family Medicine 07/05/22
[2023-08-15 15:59] LABS: Albumin* 4.3 g/dL (3.3-5.0); Chloride* 108 mmol/L (96-114); Sodium* 143 mmol/L (135-149)
[2023-08-15 16:00] LABS: Potassium* 4.2 mmol/L (3.6-5.1)
[2023-08-15 16:02] LABS: Alanine Aminotransferase* 39 U/L (4-50); Alkaline Phosphatase* 84 U/L (40-150); Anion Gap 7 mEq/L (7-15); Aspartate Amino Transferase* 24 U/L (12-35); Bilirubin Total* 0.5 mg/dL (0.1-1.5); Blood Urea Nitrogen* 19 mg/dL (7-30); Carbon Dioxide* 28 mmol/L (20-32); Creatinine* 0.9 mg/dL (0.5-1.5); Estimated Glomerular Filt Rate 101 ml/min; Glucose* 95 mg/dL (60-115); Total Protein* 6.7 g/dL (6.0-8.3)
[2023-08-15 16:03] LABS: Calcium* 9.8 mg/dL (8.4-10.6)
== END 2023-08-15 13:30 | disposition home or self-care (01) ==
LOC: NPINS 13:29
PROVIDERS: PCP Family Medicine; Visit Provider Urology
DX: C61 Malignant neoplasm of prostate (principal)
CPT/HCPCS: 80053

== ENCOUNTER 2023-09-12 13:38 | Outpatient (REF) | payer BC, SELFPAY ==
--- OUTSIDE RECORDS SUMMARY | 2023-09-12 13:45 | XMS_ITS | Encounter Summary ---
Author Organization [facility] Address [address] [place] [address] Care Team Providers Care Carton Forming Machine Helper Name Role Phone Clinician, Not Found MD Primary Care Provider Un available Reason for Visit * Reason Comments Refill Metformin Encounter Details Date Type Department Care Team (Late st Contact Info) Description 08/22/2023 Refill [facility] [address] [facility] [place], [place] [address] Nima Vizcaino MD [address] [place], [place] [id number] Refill (Metformin) Social History Tobacco Use Types Packs/Day Years [...] Nursing Notes * Mica Pruett RN - 08/27/2023 2:01 PM CDT Medication refill request Metformin Date last visit:05/27/23 Future appointment is scheduled on 09/04/23. Follow up requested by provider: 3 months Since last seen he has no showed or cancelled the following appointments: /CHANTE Lowe on 08/07/23 Labs are up to date Yes Medication refilled per standing order. metFORMIN (GLUCOPHAGE) 500 MG tablet 310 Tablet 1 05/27/2023 05/26/2024 Sig: Week one, take 1 tablet by mouth daily with dinner. Week two, take one tablet with breakfast and one with dinner. Week three, take one tablet with breakfast and two with dinner. Week four and beyond, take two tablets with breakfast and two with dinner. Route: (none) Class: E-Prescribing Order #: [id number] documented in this encounter Plan of Treatment Not on file documented as of this encounter Visit Diagnoses Diagnosis Class 3 severe obesity due to excess calories with serious comorbidity and body mass index (BMI) of 40.0 to 44.9 in adult ([facility]) documented in this encounter Care Teams Carton Forming Machine Helper Relationship Specialty Start Date End Date Clinician, Not Found, [place] [address] PCP - General 10/12/15 documented as of this encounter
--- OUTSIDE RECORDS SUMMARY | 2023-09-12 13:45 | XMS_ITS | Encounter Summary ---
Author Organization [facility] [place] [facility] Address [address] [place] [address] Care Team Providers Care Student Services Representative Name Role Phone Clinician, Not Found Primary Care Provider Un available Encounter Details Date Type Department Care Team (Late st Contact Info) Description 09/04/2023 E-Visit [facility] [address] [facility] [place] [address] Mychart, [place] [address] Social History Tobacco Use Types Packs/Day Years [...] on filedocumented in this encounter Care Teams Student Services Representative Relationship Specialty Start Date End Date Clinician, Not Found, [place] [address] PCP - General 10/12/15 documented as of this encounter
--- OUTSIDE RECORDS SUMMARY | 2023-09-12 13:45 | XMS_ITS | Clinical Summary ---
Author Organization [facility] Address [address] [place] [address] Care Team Providers Care Medicinal Chemist Name Role Phone Clinician, Not Found MD [...] for each transition of care or referral. [facility] Allergies Active Allergy Reactions Criticality Noted Date [...] (BMI) of 40.0 to 44.9 in adult ([facility]) Inject 0.75 mL (2.4 mg) subcutaneously once a week. 9 mL 1 09/04/19 24 Active metFORMIN (GLUCOPHAGE) 500 MG tabletIndication s:Class 3 severe obesity due to excess calories with serious comorbidity and body mass index (BMI) of 40.0 to 44.9 in adult ([facility]) Take 2 Tablets (1,000 mg) by mouth two times a day with meals. 360 Tablet 1 09/04/19 24 Active semaglutide-weig ht management (WEGOVY) 2.4 MG/0.75ML pen injectionIndicat ions:Class 3 severe obesity due to excess calories with serious comorbidity and body mass index (BMI) of 40.0 to 44.9 in adult ([facility]) Inject 0.75 mL (2.4 mg) subcutaneously once a week. 9 mL 1 05/27/19 24 024 Discontinued(*M ed change OR same med OR reorder, new dose/directions ) metFORMIN (GLUCOPHAGE) 500 MG tabletIndication s:Class 3 severe obesity due to excess calories with serious comorbidity and body mass index (BMI) of 40.0 to 44.9 in adult ([facility]) Week one, take 1 tablet by mouth daily with dinner. Week two, take one tablet with breakfast and one with dinner. Week three, take one tablet with breakfast and two with dinner. Week four and beyond, take two tablets with breakfast and two with dinner. 310 Tablet 1 05/27/19 24 024 Discontinued metFORMIN (GLUCOPHAGE) 500 MG tabletIndication s:Class 3 severe obesity due to excess calories with serious comorbidity and body mass index (BMI) of 40.0 to 44.9 in adult ([facility]) WEEK ONE, TAKE 1 TABLET BY MOUTH DAILY WITH DINNER. WEEK TWO, TAKE ONE TABLET WITH BREAKFAST AND ONE WITH DINNER. WEEK THREE, TAKE ONE TABLET WITH BREAKFAST AND TWO WITH DINNER. WEEK FOUR AND BEYOND, TAKE TWO TABLETS WITH BREAKFAST AND TWO WITH DINNER. 360 Tablet 08/27/19 24 024 Discontinued(*M ed change OR same med [...] DJD (degenerative joint disease) of knee 010 Elevated blood pressure read ing without diagnosis of hypertension 10/27/2009 Keloid of skin 10/27/2009 Encounters Date Type Department Care Team Description 09/04/2023 11:30 AM CDT Telemedicine [facility] [place] [address] [place] [address] [address] Nima Vizcaino MD ASHLEY (obstructive sleep apnea) (Primary Dx); Prediabetes; Class 3 severe obesity due to excess calories with serious comorbidity and body mass index (BMI) of 40.0 to 44.9 in adult ([facility]); Vitamin D deficiency ([facility]) 09/04/2023 E-Visit [facility] [address] [address] Mychart, Generic Provider 08/22/2023 Refill [facility] [place] [address] [place] [address] [address] Nima Vizcaino MD Refill (Metformin) 07/08/2023 Refill [facility] [address] [address] Serenity Barry PA-C Refill from Last 3 Months Immunizations Name Administration Dates Next Due Chicken Pox - History of Illness 11/24/1978 HepA Adult (19+ yrs) 02/15/2016 Influenza IIV4 (Quadrivalent) 0.5mL (55016) 06/2016 MMR 02/15/2016 Tdap 03/31/2014 Typhoid (Typhim [...] CDT Inhaled Oxygen Concentration - - Weight 137 kg (302 lb) 09/04/2023 9:42 AM CDT Height 190.5 cm (6' 3) 09/04/2023 9:42 AM CDT Body Mass Index 37.75 09/04/2023 9:42 AM CDT Plan of Treatment Health Maintenance Due Date Last Done Comments Hep C Screening (Preventive Services) 1965 Prediabetes: HGBA1C 1967 HIV Screening (Preventive Services) 1983 HepB (1) 10/24/1986 Adult Preventive Visit 10/27/2010 10/27/2009 PSA Screening Discussion 10/27/2010 10/27/2009 FIT Colon Cancer Screening 2011 Cholesterol 10/27/2014 10/27/2009 HepA (2 of 2 - Risk 2-dose series) 08/14/2016 02/15/2016 Zoster/Shingles (1 of 2) 10/24/2017 COVID-19 Vaccine () 10/11/2022 01/26/2022, 01/15/2021, 06/20/2020, Additional history exists Influenza (#1) 2023 02/15/2016 DTaP/Tdap/Td (2 - Tdap) 03/31/2024 [...] CDT) Cholesterol 160 0 - 199 mg/dl [facility] Triglyceride 227(H) 0 - 149 mg/dl [facility] HDL 40(L) >40 mg/dl [facility] LDL, Calc. 75 0 - 129 mg/dl [facility] Hours Fasting 4 hours [facility] 10/27/2009 2:43 PM CDT 10/27/2009 2:49 PM CDT Willard Chávez MD LAB_1 [facility] [address] [address] * PSA (Screen) 3616 (10/27/2009 2:43 PM CDT) Prostatic Spec Ag 0.37 0.00 - 4.00 ng/ml [facility] 10/27/2009 2:43 PM CDT 10/27/2009 2:49 PM CDT Willard Chávez MD LAB_1 [facility] [address] [facility] [place] [phone] from Last 3 Months or Most Recently Relevant to Health Maintenance Care Teams Medicinal Chemist Relationship Specialty Start Date End Date Clinician, Not Found, [place] [address] PCP - General 10/12/15
--- OUTSIDE RECORDS SUMMARY | 2023-09-12 13:45 | XMS_ITS | Encounter Summary ---
Author Organization [facility] Address [address] [address] Care Team Providers Care Carrot Buncher Name Role Phone Clinician, Not Found MD Primary Care Provider Un available Reason for Visit * Reason Comments Refill Encounter Details Date Type Department Care Team (Late st Contact Info) Description 07/08/2023 Refill [facility] [address] [facility] [address] [place], [place] [address] Serenity Barry PA-C [address] [place], [place] [address] Refill Social History Tobacco Use Types Packs/Day [...] Barry PA-C Last refill: 07/25/2022 Rx #: [id number] Juan Pablo uFnes RN 9:08 AM 07/16/2023 documented in this encounter Plan of Treatment Not on file documented as of this encounter Visit Diagnoses Diagnosis Morbid obesity with BMI of 40.0-44.9, adult ([facility]) documented in this encounter Care Teams Carrot Buncher Relationship Specialty Start Date End Date Clinician, Not Found, [place] [address] PCP - General 10/12/15 documented as of this encounter
--- OUTSIDE RECORDS SUMMARY | 2023-09-12 13:45 | XMS_ITS | Encounter Summary ---
Author Organization [facility] Address [address] [facility] [place] [address] Care Team Providers Care Check Grader Name Role Phone Clinician, Not Found MD Primary Care Provider Un available Reason for Visit * Reason Comments Video Visit Follow-up MWM Encounter Details Date Type Department Care Team (Late st Contact Info) Description 09/04/2023 11:30 AM CDT Telemedicine [facility] [address] [facility] [address] [place], [place] [address] Nima Vizcaino MD [address] [place], [place] [address] ASHLEY (obstructive sleep apnea) (Primary Dx); Prediabetes; Class 3 severe obesity due to excess calories with serious comorbidity and body mass index (BMI) of 40.0 to 44.9 in adult ([facility]); Vitamin D deficiency ([facility]) Social History Tobacco Use Types Packs/Day [...] - Inhaled Oxygen Concentration - - Weight 137 kg (302 lb) 09/04/2023 9:42 AM CDT Height 190.5 cm (6' 3) 09/04/2023 9:42 AM CDT Body Mass Index 37.75 09/04/2023 9:42 AM CDT documented in this encounter Patient Instructions * Patient Instructions* Nima Vizcaino MD - 09/04/2023 11:30 AM CDT Ed, It was nice meeting with you today! Here's a summary of what we discussed. Wegovy 2.4mg and metformin refilled to your pharmacy Follow-up 4-6 months. Raza Vizcaino MD [facility] documented in this encounter Progress Notes * Nima Vizcaino MD - 09/04/2023 11:30 AM CDT MEDICAL WEIGHT MANAGEMENT PROGRESS NOTE Chief Complaint Ed Sha is a 57 y.o. male who was referred/seeks to treat their obesity- associated medical conditions (ASHLEY, Prediabetes, Chronic back pain, and weight- bearing joint pain) by aggressive management of weight. Also w h/o multiple concussions, elevated BP w/o HTN, Vit D deficiency. Interim History - Last seen by PAReji/Bariatrician: 05/27/23 LV - on Wegovy 2.4mg weekly. Doing pretty good he states. Also on metformin. Seeing weight loss. - Prostate cancer dx'd 2022 - had radiation treatment. Treatment through [facility]. He is on abiraterone & Eligard - both hormone blockers. Along with the abiraterone he must take prednisone. Patient's weight history is as follows: Bariatric Weight History and Calculations Weight History Age at Onset of Obesity: 37 Highest Adult Weight: 350 lb Preferred Weight: 250 lb Lowest Adult Weight: 235 lb At what weight would you not be disappointed?: 260 lb Starting Weight: 340 lb Current Weight: 302 lb Height (in): 75 Weight Calculations Excess Weight: 151 lb 8 oz Current Weight Loss: 38 lb Goal Weight: 188 lb 8 oz Starting BMI: 42.59 Percent Exess Weight Loss: 25 Current BMI: 37.83 Percent Totoal Body Weight Loss: 11 Weight History Wt Readings from Last 3 Encounters: 09/04/23 (!) 302 lb (684706 g) 05/27/23 (!) 328 lb (581696 g) 12/29/22 (!) 317 lb (906770 g) Weight Management Center Assessment: Updating Your Care Team 1. Have you been working on any lifestyle goals since your last visit?: Yes 4. How many hours of sleep to you get per night?: 4-5 hours 5. What physical activity are you doing?: Strength training 7. Do you drink sugar-sweetened beverages (regular soda or sweetened coffee or tea)?: No 8. What would you like to discuss today?: Weight management progress Post-surgical information: 5. Does the patient snack?: Neg ROS Patient is experiencing the following symptoms/problems: None Medications Current Outpatient Medications Medication Instructions ABIRATERONE ACETATE OR No dose, route, or frequency recorded. alfuzosin (UROXATRAL) 10 mg, Oral, DAILY cholecalciferol (VITAMIND3) 2,000 Units, Oral, DAILY leuprolide (4 month) (ELIGARD) 30 mg, Subcutaneous, ONCE metFORMIN (GLUCOPHAGE) 500 MG tablet WEEK ONE, TAKE 1 TABLET BY MOUTH DAILY WITH DINNER. WEEK TWO, TAKE ONE TABLET WITH BREAKFAST AND ONE WITH DINNER. WEEK THREE, TAKE ONE TABLET WITH BREAKFAST AND TWO WITH DINNER. WEEK FOUR AND BEYOND, TAKE TWO TABLETS WITH BREAKFAST AND TWO WITH DINNER. MULTIPLE VITAMIN OR No dose, route, or frequency recorded. Wegovy 2.4 mg, Subcutaneous, WEEKLY Physical Exam VITAL SIGNS: Ht 6' 3 (190.5 cm) Wt (!) 302 lb (726844 g) BMI 37.75 kg/m?? General/constitutional: Alert in no acute distress. [...] index (BMI)of 40.0 to 44.9 in adult ([facility]) E66.01 Z68.41 4. Vitamin D deficiency ([facility]) E55.9 Plan for management includes the following: Nutrition [...] - Wegovy 2.4mg weekly continued - Metformin 1000mg bid continued - Discussed w Ed that his hormone treatment & prednisone will most likely confound any possibleweight loss with MWM currently, but the medications may help keep weight stable over time, or limitweight gain. He is understanding. - Other medication options (and ) - Phentermine - caution elevated BP - Topiramate - he is concerned about brain fog - Zonisamide - - Vyvanse - - Bupropion - - Naltrexone - - other GLP-1/dual RA - consider Zepbound in future based on affordability/availability Other - n/a Follow up: in 4-6 months. Raza Vizcaino MD [facility] This service was provided via telehealth and conducted using a synchronous audiovideo link. Clinician located at: Clinic Patient located at: Home documented in this encounter Nursing Notes * Domenico Dolan MA - 09/04/2023 11:30 AM CDT Patient has completed mobile check in process. Last seen on 05/27/23 with recorded weight of 328 lbs. Weight History: Bariatric Weight History and Calculations Weight History Age at Onset of Obesity: 37 Highest Adult Weight: 350 lb Preferred Weight: 250 lb Lowest Adult Weight: 235 lb At what weight would you not be disappointed?: 260 lb Starting Weight: 340 lb Current Weight: 302 lb Height (in): 75 Weight Calculations Excess Weight: 151 lb 8 oz Current Weight Loss: 38 lb Goal Weight: 188 lb 8 oz Starting BMI: 42.59 Percent Exess Weight Loss: 25 Current BMI: 37.83 Percent Totoal Body Weight Loss: 11 Measurements Do you have a scale? YES - 302 lb. Do you have a BP cuff? NO Eating patterns Patient is experiencing the following symptoms/problems: None Medications: not reviewed. Compliance: Yes Side effects: NO Patient would like to discuss: Weight management progress Domenico Dolan MA 9:42 AM 09/04/2023 documented in this encounter Plan of Treatment Not on file documented as of this encounter Visit Diagnoses Diagnosis ASHLEY (obstructive sleep apnea)- Primary Obstructive sleep apnea (adult) (pediatric) Prediabetes Other abnormal glucose Class 3 severe obesity due to excess calories with serious comorbidity and body mass index (BMI) of 40.0 to 44.9 in adult ([facility]) Vitamin D deficiency ([facility]) Unspecified vitamin D deficiency documented in this encounter Care Teams Check Grader Relationship Specialty Start Date End Date Clinician, Not Found, [place] [address] PCP - General 10/12/15 documented as of this encounter
--- OUTSIDE RECORDS SUMMARY | 2023-09-12 13:45 | XMS_ITS | Referral Summary ---
Author Organization [facility] Address [address] [place] [address] Care Team Providers Care Lean Process Deployment Consultant Name Role Phone Roverto Morley MD Primary Care Provider [phone] Allergies Active Allergy Reactions Criticality Noted Date [...] LAB - BLOOD [facility] Acute Care Lab [address] [facility] Lab (1st floor, no room number) [place] [address], [facility] from Last 3 Months or Most Recently Relevant to Health Maintenance Care Teams Lean Process Deployment Consultant Relationship Specialty Start Date End Date Roverto Morley MD [facility] [address] [address] PCP - General Family Medicine 07/05/22
--- OUTSIDE RECORDS SUMMARY | 2023-09-12 13:45 | XMS_ITS | Clinical Summary ---
Author Organization [facility] Address [address] [place] [id number] Care Team Providers Care It Administrative Assistant Name Role Phone Roverto Morley MD Primary Care Provider [phone] Allergies Active Allergy Reactions Criticality Noted Date [...] IMMUNIZATION (1 of 2) 10/24/2017 COVID-19 Vaccine (2022- season) 2022 01/26/2022, 01/15/2021, 06/20/2020, Additional history exists PHQ-2 (once per calendar year) 2023 INFLUENZA VACCINE (#1) 2023 02/15/2016 DTAP/TDAP/TD IMMUNIZATION (2 - Td [...] [place] DO LAB - BLOOD [facility] [address] Lab (1st floor, no room number) [place] [address], [facility] from Last 3 Months or Most Recently Relevant to Health Maintenance Care Teams It Administrative Assistant Relationship Specialty Start Date End Date Roverto Morley MD [facility] [address], [place] [address] PCP - General Family Medicine 07/05/22
--- OUTSIDE RECORDS SUMMARY | 2023-09-12 13:45 | XMS_ITS | Clinical Summary ---
Author Organization [email or web address] Address [place], [place] [address] Care Team Providers Care Well Blower Name Role Phone Roverto Morley MD Primary Care Provider [phone] Social History Tobacco Use Types Packs/Day Years [...] age to complete this topic Care Teams Well Blower Relationship Specialty Start Date End Date Roverto Morley MD [address] [place] [address] PCP - General Family Practice 02/22/22
--- OUTSIDE RECORDS SUMMARY | 2023-09-12 13:46 | XMS_ITS | Continuity of Care Document ---
Author Organization [facility] Address [address] [place] [address] Care Team Providers Care Patron Attendant Name Role Phone [facility] Primary Care Provider Assessment Encounter Date Assessment Date Assessment LastModified by Organization Details LastModified Time 08/29/2023 08/29/2023 Here for blood draw ridge Not available 08/29/2023 09:29:32 Plan of Treatment Reminders Order Date Submit Date Provider Last Modified By Organization Details Last Modified Time Details Appointments NEW PATIENT 30 2023 11:30A M Constantine lynch MD, PHD Not available Not available Not available Lab testoste ava, total, serum 2023 024 [facility], [address], [address], [place], [address], 08/29/2023 18:05:36 CMP, serum or plasma 2023 024 [facility], [address], [address], [place], [address], 08/29/2023 18:05:38 Referral None recorded . Procedures None recorded . Surgeries None recorded . Imaging None recorded . Medication Orders None recorded . Patient TargetsNo targets recorded. Patient Instructions Encounter Date Encounter Id Patient Instructions Last Modified By Organization Details Last Modified Time 08/29/2023 [id number] Pt to follow up with Dr. Ilda sabillon Not available 08/29/2023 09:29:48 Reason for Referral Referring Physician: Epi Rudd, Urology, Encounter Date: 07/24/2022 Problems Name Status Onset Date Resolution Date Notes Provider Name and Address Organization Details Recorded Time Malignant tumor of prostate Active 09/24/19 23 [facility] 09/23/2022 14:52:31 Metastatic malignant neoplasm Active 12/13/19 23 Constantine bernardo MD, PHD [address] [place] [phone], [facility] 12/12/2022 18:06:08 Lower urinary tract symptoms due to benign prostatic hypertrophy Active 12/13/19 23 Constantine bernardo MD, PHD [address] [place] [phone], [facility] 12/12/2022 18:06:15 Thyroid nodule Active 02/14/19 24 Constantine bernardo MD, PHD [address] [place] [address], [phone], [facility] 02/14/2023 17:42:33 Reduced libido Active 05/23/19 24 Constantine bernardo MD, PHD [address] [place] [phone], [facility] 05/23/2023 11:23:02 Metastatic malignant neoplasm to bone Active 06/19/19 24 JAKE MARTÍNEZ [address], [phone], [facility] 06/19/2023 14:41:38 Male hot flash Active 06/19/19 24 JAKE MARTÍNEZ [address], [phone], [facility] 06/19/2023 14:41:40 Problem Notes None recorded. Procedures Surgical History Date Name Laterality Status Provider Name and Address Organization Details Recorded Time COMPLEX VISIT completed Constantine Thorne MD, PHD [address] [place] [address], [phone], [facility] 08/29/2023 09:04:27 4 CALENDER WORKER HELPER/blood draw completed Barbybatsheva Cervantes null, [facility] 08/29/2023 09:38:08 4 COMPLEX VISIT completed Constantine Thorne MD, PHD [address] [place] [address],[address], [place], [address], [facility] 05/23/2023 11:22:40 4 CALENDER WORKER HELPER/blood draw completed Adeola Martinez null, [facility] 05/20/2023 21:33:17 4 CALENDER WORKER HELPER/blood draw completed Emeli Montanez null, [facility] 02/20/2023 11:09:17 4 COMPLEX VISIT completed Constantine Thorne MD, PHD [address] [place] [address],[address], [place], [address], [facility] 02/14/2023 18:41:08 4 CALENDER WORKER HELPER/blood draw completed Adeola Martinez null, [facility] 02/14/2023 17:04:01 3 CALENDER WORKER HELPER/blood draw completed Adeola Montgomeryo null, [facility] 12/12/2022 16:56:45 3 Magalyd completed Britney Cespedes null, [facility] 10/24/2022 09:27:28 3 Firmagon completed Britney Cespedes null, [facility] 09/23/2022 15:02:16 3 Prostate Biopsy Procedure completed Epi Rudd MD [address] [place] [address],[address], [place], [address], [facility] 06/14/2022 10:32:09 3 Rocephin/Ceftr iaxone completed Serenity Lora null, [facility] 06/14/2022 10:13:42 3 Bladder Scan completed Serenity Lora null, [facility] 04/18/2022 12:43:19 3 Blood Draw/CALENDER WORKER HELPER/PSA RESULTS completed Serenity Lora null, [facility] 04/18/2022 12:35:42 Bladder Scan completed Eip Rudd MD [address] [facility],[address], [place], [address], [facility] 01/14/2022 11:44:15 procedure on knee completed Epi Rudd MD [address] [facility],[address], [place], [address], [facility] 01/14/2022 11:39:04 Imaging Results None recorded. Procedure Notes None recorded. Medical Equipment None Reported. Allergies Allergen ID Allergen Name Allergen Category Reaction Reaction Severity Criticality Documentation Date Start Date Code Code System Note Provider Name and Address Organization Details Recorded Time 846262 morphine medicatio n Not available Not available Not available 01/14/2022 7052 RxNorm Epi Rudd MD [address] [facility],[address], [place], [address], [facility] 2 11:38:04 Medications Name Sig Start Date Stop Date Status Note LastModified by Organization Details LastModified Time vitamin d3 5000iu capsule TAKE 1 CAP ORALLY EVERY DAY NO FURTHER REFILLS UNTIL SEEN IN CLINIC. active Not Available Not Available No t Available metformin 500 mg tablet PLEASE SEE ATTACHED FOR DETAILED DIRECTION S active Not Available Not Available No t Available meloxicam 15 mg tablet TAKE 1 TABLET BY MOUTH EVERY DAY active Not Available Not Available No t Available prednisone 5 mg tablet TAKE 1 TABLET BY MOUTH TWICE A DAY 08/28 completed Not Available Not Available Not Available ceftriaxone 1 gram solution for injection Take 1 g by injection route. 06/19 completed Not Available Not Available Not Available famciclovir 500 mg tablet 08/28 completed Not Available Not Available Not Available tamsulosin 0.4 mg capsule TAKE 1 CAPSULE BY MOUTH EVERY DAY active Not Available Not Available No t Available levofloxaci n 500 mg tablet TAKE 1 TABLET EVERY 24 HOURS BY ORAL ROUTE 08/28 completed Not Available Not Available Not Available cholecalcif jethro (vitamin D3) 125 mcg [...] Available Not Available No t Available Glucosamine 08/28 completed Not Available Not Available Not Available multivitami n active Not Available [...] MG) SUBCUTANE OUSLY DAILY FOR 21 DAYS. 08/28 completed Not Available Not Available Not Available BD Celeste 2nd Gen Pen Needle 32 gauge x 5/32 USE 1 DAILY WITH PEN INJECTOR DEVICE TO INJECT UNDER THE SKIN. EACH NEEDLE IS FOR 1 TIME USE ONLY 08/28 completed Not Available Not Available Not Available Wegovy 2.4 mg/0.75 mL subcutaneou s pen injector INJECT 0.75 ML (2.4 MG) SUBCUTANE OUSLY ONCE A WEEK. active Not Available Not Available No t Available Wegovy 1.7 mg/0.75 mL subcutaneou s pen injector PLEASE SEE ATTACHED FOR DETAILED DIRECTION S 08/28 completed Not Available Not Available Not Available Wegovy 0.25 mg/0.5 mL subcutaneou s pen injector INJECT 0.5 ML (0.25 MG) SUBCUTANE OUSLY ONCE A WEEK FOR 28 DAYS. ($1,590 - NOT COVERED) 08/28 completed Not Available Not Available Not Available Wegovy 0.5 mg/0.5 mL subcutaneou s pen injector 08/28 completed Not Available Not Available Not Available Vitals Date Recorded Body height Body mass index (BMI) Body weight Provider Name and Address Organization Details Last Updated DateTime 08/29/2023 187.96 cm 39.4 kg/m2 404300.86 g Barby Cervantes [facility] 08/29/2023 09:34:47 Social History Question Answer Notes LastModified by Organizat ion Details LastModified Time Tobacco Smoking Status Former Smoker Epi Rudd MD [address] [facility],[address], [place], [address], [facility] 01/14/2022 11:38:52 What Is Your Level Of Alcohol Consumption? None Information not available 01/14/2022 What Is Your Level Of Caffeine Consumption? Moderate [email or web address] Information not available 08/29/2023 What Was The Date Of Your Most Recent Tobacco Screening? 08/29/2023 [email or web address] Information not available 08/29/2023 Sex: Unknown Functional Status None recorded. Mental Status None [...] Encounter Closed Date Diagnosis/Indication Diagnosis SNOMED-CT Code [id number] Constantine watson MD, PHD [facility] [address] [place] [address] 08/29/2023 09:13:33 09/08/2023 11:15:57 Malignant tumor of prostate 862149653 Metastatic malignant neoplasm to bone 81855110 Male hot flash [id number] Emeli Liu er [facility] [address] [place] [address] 08/29/2023 09:13:33 09/09/2023 03:58:40 Malignant tumor of prostate [id number] Health Concerns Section Related Observation LastModified by Organization Detai ls LastModified Time None Recorded Concern Status LastModified by Organization Details LastModified Time None Recorded Payers Encounter Date Sequence Insurance Name Policy Number Policy Hernandez Covered Member ID Hernandez Member ID Guarantor Name 08/29/2023 1 [place] [id number] Darien Dalton [id number] Darien Dalton Notes Date Note Type Note Provider Name and Address Organization Details Recorded Time 08/29/2023 text/html HPI Notes: 57M w ith metastatic prostate cancer= ([id number]/1, Robert 4+5=9, PSA 28.4) Completed RT to [...] also possible paraaortic nodes Genetics: Foundation one (01/22/23): MS- equivocal, TMB 2 Muts/Mb, no reportable genomic alterations RT 10/09/22-11/21/22: 7000 cGy (Nuria) ADT start: 08/23/22; Firmagon Last ADT: 05/23/23: Eligard 22.5 mg Anti-androgen: Karishma + Pred start 05/23/23 Prostate biopsy (06/14/22): 01/21 cores up to Gl 4+5=9 PSA Results 11/27/21: 11.5 04/18/22: 28.4 12/12/22: 0.53 02/14/23: 0.17 05/23/23: <0.04 08/29/23: <0.04 PMH: obesity, AFib (08/2023) PSH: no abd surgery SocHx: former [employer] Occ: director of Tech at [employer] Tob: former smoker>20 yrs ago EtOH: none FamHx: farmworker fur- brother; he thinks might be environmental Rectal ca- mother 80s Constantine Thorne MD, PHD [address] [facility],[place] [address], [place], [address], [facility] 08/29/2023 10:16:47
[2023-09-12 14:04] LABS: Albumin* 4.5 g/dL (3.3-5.0); Chloride* 104 mmol/L (96-114)
[2023-09-12 14:05] LABS: Potassium* 4.4 mmol/L (3.6-5.1); Sodium* 139 mmol/L (135-149)
[2023-09-12 14:07] LABS: Anion Gap 10 mEq/L (7-15); Aspartate Amino Transferase* 26 U/L (12-35); Bilirubin Total* 0.8 mg/dL (0.1-1.5); Carbon Dioxide* 25 mmol/L (20-32); Creatinine* 0.9 mg/dL (0.5-1.5); Estimated Glomerular Filt Rate 101 ml/min; Total Protein* 7.1 g/dL (6.0-8.3)
[2023-09-12 14:08] LABS: Alanine Aminotransferase* 29 U/L (4-50); Alkaline Phosphatase* 77 U/L (40-150); Blood Urea Nitrogen* 15 mg/dL (7-30); Calcium* 10.1 mg/dL (8.4-10.6); Glucose* 116 mg/dL (60-115)
== END 2023-09-12 13:39 | disposition home or self-care (01) ==
LOC: NPINS 13:38
PROVIDERS: PCP Family Medicine; Visit Provider Urology
DX: C61 Malignant neoplasm of prostate (principal)
CPT/HCPCS: 80053

== ENCOUNTER 2023-09-19 12:54 | Outpatient (CLI) | payer BC, SELFPAY ==
--- OUTSIDE RECORDS SUMMARY | 2023-09-19 12:57 | XMS_ITS | Data Portability ---
Author Organization [place] [facility], [facility] Address [address] [place] [address] Care Team Providers Care Radiology Technician Name Role Phone [facility] Primary Care Provider Assessment Encounter Date Assessment Date Assessment LastModified by Organization Details LastModified Time 02/20/2023 02/20/2023 Here for CMP and Invitae kit draw [email or web address] Not available 02/20/2023 11:23:23 05/23/2023 05/23/2023 57M with metastatic prostate cancer= (oE7Z9G8/1, Robert 4+5=9, PSA 28.4) 1) Prostate cancer - s/p RT to primary tumor and LN - excellent initial PSA response - PSMA-PET with uptake in prostate, right ext iliac LN and right iliac bone; also possible paraaortic nodes - Eligard 22.5 mg today - will work with pharmacy to get Kairshma/Pred started - see me in 3 months with PSA, next Eligard 2) Bone Health - 9655-9640 mg Ca and 400-1000 IU Vitamin D [...] vs acupuncture [email or web address] Not available 05/23/2023 11:22:58 06/19/2023 06/19/2023 57M with metastatic prostate cancer= (pZ7N1H1/1, Gillespie 4+5=9, PSA 28.4) s/p RT to primary tumor and LN. On ADT with eligard and Abiraterone + Prednisone ( started 05/23/23). Noticeable increase in fatigue since starting karishma/pred, possible increase in hot flashes. Not available 06/19/2023 14:48:07 08/29/2023 08/29/2023 57M with metastatic prostate cancer= (uI4H1A6/1, Gillespie 4+5=9, PSA 28.4) s/p RT to primary tumor and LN. On ADT with eligard and Abiraterone + Prednisone (started 05/23/23). 1) Prostate cancer - continue ADT + Karishma/Pred. - Eligard 22.5 mg today - f/u 3 months with PSA, next Eligard, PSMA-PET 2) Hot flashes- tolerable 3) Bone health - 3825-8390 mg Ca and 400-1000 IU Vitamin D daily - consider Xgeva pending results of next PSMA-PET if active bone disease justyna Not available 08/29/2023 10:07:03 08/29/2023 08/29/2023 Here for blood draw ridge Not available 08/29/2023 09:29:32 Plan of Treatment Reminders Order Date Submit Date Provider Last Modified By Organization Details Last Modified Time Details Appointments NEW SANDHYA T 30 2023 11:30A M Not available Not available Not available Lab CMP, serum or plasma 2023 024 [facility], [address], [address], [place], [address], 02/20/2023 17:25:22 PSA, serum or plasma 2023 024 justyna Leslie, [address], [place], [address], 05/23/2023 10:35:42 PSA, serum or plasma 2023 024 [email or web address] Anuj, [address], [place], [address], 08/29/2023 10:04:18 testos terone , total, serum 2023 024 [facility], [address], [address], [place], [address], 08/29/2023 18:05:36 CMP, serum or plasma 2023 024 [facility], [address], [address], [place], [address], 08/29/2023 18:05:38 Referral None record ed. Procedures None record ed. Surgeries None record ed. Imaging None record ed. Medication Orders Eligar d 22.5 mg (3 month) subcut aneous syring e 2023 024 [email or web address] [id number], [address], [place], [address], 05/23/2023 11:24:45 Eligar d 22.5 mg (3 month) subcut aneous syring e 2023 024 [email or web address] [id number], [address], [place], [address], 08/29/2023 10:14:21 Patient TargetsNo targets recorded. Patient Instructions Encounter Date Encounter Id Patient Instructions Last Modified By Organization Details Last Modified Time 02/20/2023 [id number] Pt to follow up with Dr. Ilda sabillon Not available 02/20/2023 11:23:35 06/19/2023 [id number] 45 minutes total time spent reviewing records, speaking with patient and writing note. Not available 06/19/2023 14:57:46 08/29/2023 [id number] Pt to follow up with Dr. Ilda sabillon Not available 08/29/2023 09:29:48 Reason for Referral Referring Physician: Epi Rudd, Urology, Encounter Date: 07/24/2022 Results Created Date Observation Date Name Description Value Unit Range Abnormal Flag LastModifiedBy Organization Detail LastModifiedTime 02/14/19 24 02/14/2023 PSA, serum or plasm a PSA 0.17ng /ml 0-4.0 Not Available [facility] [address], [place], [address], 02/05/2023 11:28:31 02/20/19 24 02/20/2023 COMPR EHENS DEEP METAB OLIC PANEL ALT-olympus 52.0 IU/L 10.0-4 0.0 high Not Available [facility] [address] [place] [address] [address], [place], [address], 02/20/2023 17:25:21 02/20/19 24 02/20/2023 COMPR EHENS DEEP METAB OLIC PANEL AST-olympus 28.3 IU/L 10.0-4 2.0 Not Available [facility] [address] [place] [address] [address], [place], [address], 02/20/2023 17:25:21 02/20/19 24 02/20/2023 COMPR EHENS DEEP METAB OLIC PANEL ALP-olympus 67.0 [IU]/ L 24.0-1 06.0 Not Available [facility] [address] [place] [address] [address], [place], [address], 02/20/2023 17:25:21 02/20/19 24 02/20/2023 COMPR EHENS DEEP METAB OLIC PANEL albumin-olym pus 4.2 g/dL 3.5-5. 0 Not Available [facility] [address] [place] [address] [address], [place], [address], 02/20/2023 17:25:21 02/20/19 24 02/20/2023 COMPR EHENS DEEP METAB OLIC PANEL T bilirubin-ol ympus 0.3 mg/dL 0.2-1. 0 Not Available [facility] [address] [place] [address] [address], [place], [address], 02/20/2023 17:25:21 02/20/19 24 02/20/2023 COMPR EHENS DEEP METAB OLIC PANEL D bilirubin-ol ympus 0.1 mg/dL 0.0-0. 2 Not Available [facility] [address] [facility] [address], [place], [address], 02/20/2023 17:25:21 02/20/19 24 02/20/2023 COMPR EHENS DEEP METAB OLIC PANEL T protein-olym pus 6.7 g/dL 6.5-8. 1 Not Available [facility] [address] [facility] [address], [place], [address], 02/20/2023 17:25:21 02/20/19 24 02/20/2023 COMPR EHENS DEEP METAB OLIC PANEL potassium 4.3 mmol/ L 3.6-5. 0 Not Available [facility] [address] [facility] [address], [place], [address], 02/20/2023 17:25:21 02/20/19 24 02/20/2023 COMPR EHENS DEEP METAB OLIC PANEL Na 142.0 mmol/ L 135.0- 145.0 Not Available [facility] [address] [place] [address] [address], [place], [address], 02/20/2023 17:25:21 02/20/19 24 02/20/2023 COMPR EHENS DEEP METAB OLIC PANEL chloride 105.0 mmol/ L 101.0- 111.0 Not Available [facility] [address] [facility] [address], [place], [address], 02/20/2023 17:25:21 02/20/19 24 02/20/2023 COMPR EHENS DEEP METAB OLIC PANEL CO2 28.0 mmol/ L 21.0-3 1.0 Not Available [facility] [address] [place] [address] [address], [place], [address], 02/20/2023 17:25:21 02/20/19 24 02/20/2023 COMPR EHENS DEEP METAB OLIC PANEL aniongap 9.00 0.00-1 6.00 Not Available [facility] [address] [facility] [address], [place], [address], 02/20/2023 17:25:21 02/20/19 24 02/20/2023 COMPR EHENS DEEP METAB OLIC PANEL glu 109.40 mg/dL 70.00- 105.00 high Not Available [facility] [address] [facility] [address], [place], [address], 02/20/2023 17:25:21 02/20/19 24 02/20/2023 COMPR EHENS DEEP METAB OLIC PANEL Ca 9.4 mg/dL 8.4-10 .2 Not Available [facility] [address] [facility] [address], [place], [address], 02/20/2023 17:25:21 02/20/19 24 02/20/2023 COMPR EHENS DEEP METAB OLIC PANEL BUN 19.0 mg/dL 7.0-18 .0 high Not Available [facility] [address] [facility] [address], [place], [address], 02/20/2023 17:25:21 02/20/19 24 02/20/2023 COMPR EHENS DEEP METAB OLIC PANEL BUN/creat 17.4 ratio 9.0-20 .0 Not Available [facility] [address] [facility] [address], [place], [address], 02/20/2023 17:25:21 02/20/19 24 02/20/2023 COMPR EHENS DEEP METAB OLIC PANEL creatinine 1.1 mg/dL 0.6-1. 3 Not Available [facility] [address] [facility] [address], [place], [address], 02/20/2023 17:25:21 02/20/19 24 02/20/2023 COMPR EHENS DEEP METAB OLIC PANEL eGFR >60 mL/mi n_per _1.73 90-120 Not Available [facility] [address], [place], [address], 02/20/2023 17:25:21 05/23/19 24 05/23/2023 PSA, serum or plasm a PSA <0.04 ng/ml 0-4.0 Not Available [facility] [address], [place], [address], 05/20/2023 21:33:00 08/29/19 24 08/29/2023 PSA, serum or plasm a PSA <0.04 ng/ml 0-4.0 NG/mL Not Available [facility] [address], [place], [address], 08/28/2023 08:12:14 02/28/19 24 02/28/2023 US, thyro id EXAM: US THYROI D LOCATI ON: [facility] t Radiol ogy Outpat [facility] Imagin g [place] DATE: 024 INDICA TION: Nontox ic [...] there is focal tracer uptake along the plate maker zinc ior inferi or LEFT lobe of the thyroi d gland. On the ultras ound today, in the plate maker zinc ior aspect of the mid to inferi [...] mm TI-RAD S 4 nodule in the plate maker zinc ior aspect of the mid to inferi [...] N. et al. Grisel l of the [place] an Yi e of Radiol ogy 2017. Volume 14 (2017) , Issue 5, 956-00 5. This report was electr onical ly interp reted by: DR. MEREDITH AREVALO M.D. [email or web address] [facility] [place] [facility] [place] [address] [facility] [address], [place], [address], 05/23/2023 11:14:10 04/04/19 24 04/04/2023 fine needl e aspir ation , thyro id (PROC ) No observ ation record ed. [email or web address] [facility] [address], [place], [address], 05/23/2023 11:14:10 Result Notes None recorded. Problems Name Status Onset Date Resolution Date Notes Provider Name and Address Organization Details Recorded Time Malignant tumor of prostate Active 09/24/19 Britney perkins [facility] 09/23/2022 14:52:31 Metastatic malignant neoplasm Active 12/13/19 Constantine bernardo MD, PHD [address] [place] [address],[place] [address], [place], [address], [facility] 12/12/2022 18:06:08 Lower urinary tract symptoms due to benign prostatic hypertrophy Active 12/13/19 Constantine bernardo MD, PHD [address] [place] [address],[address], [address], [facility] 12/12/2022 18:06:15 Thyroid nodule Active 02/14/19 24 Constantine bernardo MD, PHD [address] [place] [address], [address], [facility] 02/14/2023 17:42:33 Reduced libido Active 05/23/19 24 Constantine bernardo MD, PHD [address] [place] [address], [address], [facility] 05/23/2023 11:23:02 Metastatic malignant neoplasm to bone Active 06/19/19 [address], [address], [facility] 06/19/2023 14:41:38 Male hot flash Active 06/19/19 24 JAKE NOE MART[address], [address], [facility] 06/19/2023 14:41:40 Problem Notes None recorded. Procedures Surgical History Date Name Laterality Status Provider Name and Address Organization Details Recorded Time 4 COMPLEX VISIT completed Constantine Thorne MD, PHD [address] [place] [address], [address], [facility] 08/29/2023 09:04:27 4 EMERGENCY MANAGEMENT SPECIALIST/blood draw completed Barby perkins [facility] 08/29/2023 09:38:08 4 COMPLEX VISIT completed Constantine Thorne MD, PHD [address] [place] [address], [address], [facility] 05/23/2023 11:22:40 4 EMERGENCY MANAGEMENT SPECIALIST/blood draw completed Adeola perkins [facility] 05/20/2023 21:33:17 4 EMERGENCY MANAGEMENT SPECIALIST/blood draw completed Emeli perkins [facility] 02/20/2023 11:09:17 4 COMPLEX VISIT completed Constantine Thorne MD, PHD [address] [facility],[address], [place], [address], [place] [facility] 02/14/2023 18:41:08 4 EMERGENCY MANAGEMENT SPECIALIST/blood draw completed Adeola Montgomeryo null, [facility] 02/14/2023 17:04:01 3 EMERGENCY MANAGEMENT SPECIALIST/blood draw completed Adeola Martinez null, [facility] 12/12/2022 16:56:45 3 Eligard completed Britney Floreskeye null, [facility] 10/24/2022 09:27:28 3 Firmagon completed Britney Bwanakeye null, [facility] 09/23/2022 15:02:16 3 Prostate Biopsy Procedure completed Epi Rudd MD [address] [place] [address],[address], [place], [address], [place] [facility] 06/14/2022 10:32:09 3 Rocephin/Ceftr iaxone completed Serenity Lora null, [facility] 06/14/2022 10:13:42 3 Bladder Scan completed Serenity Lora [facility], [facility] 04/18/2022 12:43:19 3 Blood Draw/EMERGENCY MANAGEMENT SPECIALIST/PSA RESULTS completed Serenity Lora [facility], [facility] 04/18/2022 12:35:42 2 Bladder Scan completed Epi Rudd MD [address] [place] [address],[address], [place], [address], [place] [facility] 01/14/2022 11:44:15 procedure on knee completed Epi Rudd MD [address] [place] [address],[address], [place], [address], [place] [facility] 01/14/2022 11:39:04 Imaging Results Imaging Date Name Status LastModified by Organiz ation Details LastModified Time 02/28/2023 US, thyroid completed [email or web address] [facility] [address], [place], [address], 05/23/2023 11:14:10 04/04/2023 fine needle aspiration, thyroid (PROC) completed [email or web address] [facility] [address], [place], [address], 05/23/2023 11:14:10 Procedure Notes None recorded. Medical Equipment None Reported. Allergies Allergen ID Allergen Name Allergen Category Reaction Reaction Severity Criticality Documentation Date Start Date Code Code System Note Provider Name and Address Organization Details Recorded Time 503939 morphine medicatio n Not available Not available Not available 01/14/2022 7052 RxNorm Epi Rudd MD [address] [facility] [address], [place], [address] 11:38:04 Medications Name Sig Start Date [...] Updated DateTime 05/23/2023 187.96 cm 41.7 kg/m2 817608.52 g Constantine alcantar MD, PHD [address] [place] [address],[address], [address], [facility] 05/23/2023 10:34:43 Date Recorded Body height Body mass index (BMI) Body weight Provider Name and Address Organization Details Last Updated DateTime 08/29/2023 187.96 cm 39.4 kg/m2 183930.86 g Barby Cervantes [facility] 08/29/2023 09:34:47 Social History Question Answer Notes LastModified by Organizat ion Details LastModified Time Tobacco Smoking Status Former Smoker Epi Rudd MD [address] [place] [address], [address] 01/14/2022 11:38:52 What Is Your Level Of Alcohol Consumption? None Information not available 01/14/2022 What Is Your Level Of Caffeine Consumption? Moderate [email or web address] Information not available 08/29/2023 What Was The Date Of Your Most Recent Tobacco Screening? 08/29/2023 [email or web address] Information not available 08/29/2023 Sex: Unknown Functional [...] Encounter Closed Date Diagnosis/Indication Diagnosis SNOMED-CT Code [id number] Epi Rudd MD [facility] [address] [place] [address] 01/14/2022 11:22:28 01/16/2022 09:19:19 Slowing of urinary stream 39349514 Must strai n to pass urine 176459170 Urgent vianca altagracia to urinate 72307606 Disorder o f ejaculation 549981748 Prostatitis 0209055 Prostate s pecific antigen above reference range 494740005 [id number] Epi Rudd MD [facility] [address] [place] [address] 04/18/2022 12:30:24 04/22/2022 11:34:10 Slowing of urinary stream 36636387 Must strai n to pass urine 739709993 Urgent vianca altagracia to urinate 79880705 Disorder o f ejaculation 272481725 Prostatitis 0162480 Prostate s pecific antigen above reference range 596434216 [id number] Epi Rudd MD [facility] [address] [place] [address] 06/14/2022 09:56:14 06/20/2022 16:26:42 Slowing of urinary stream 31288255 Must strai n to pass urine 152584875 Urgent vianca altagracia to urinate 73623192 Disorder o f ejaculation 855287891 Prostate s pecific antigen above reference range 198916184 269981 Epi Rudd MD [facility] [address] [place] [address] 06/19/2022 10:57:12 06/24/2022 15:59:39 Slowing of urinary stream 06241821 Must strai n to pass urine 845534181 Urgent vianca altagracia to urinate 97592215 Disorder o f ejaculation 403281729 Prostate s pecific antigen above reference range 901196951 Malignant tumor of prostate 005487478 [id number] Epi Rudd MD [facility] [address] [place] [address] 08/23/2022 08:49:54 08/30/2022 08:49:35 Malignant tumor of prostate 020501267 [id number] Britney Coy [facility] [address] [place], [place] [address] 09/23/2022 13:54:12 09/27/2022 09:34:25 Malignant tumor of prostate 564817419 [id number] Epi Rudd MD [facility] [address] [place] [address] 10/24/2022 08:48:27 11/01/2022 08:59:18 Malignant tumor of prostate 177328767 754254 Jenae Yun [facility] [address] [place] [address] 12/12/2022 16:45:29 12/25/2022 13:24:18 Malignant tumor of prostate 594437011 Metastatic malignant neoplasm 647700053 Lower urin andrey tract symptoms due to benign prostatic hypertrophy 84400245820708 [id number] Constantine watson MD, PHD [facility] [address] [place] [address] 02/14/2023 16:58:11 02/24/2023 13:50:13 Malignant tumor of prostate 895690741 Metastatic malignant neoplasm 339009167 Lower urin andrey tract symptoms due to benign prostatic hypertrophy 27208041727187 Thyroid nodule 845724902 070313 Emeli Jarvi-Pott er [facility] [address] [place] [address] 02/20/2023 10:45:50 02/28/2023 03:58:01 Malignant tumor of prostate 478338795 [id number] Constantine watson MD, PHD [facility] [address] [place] [address] 05/23/2023 09:57:22 05/26/2023 11:23:54 Malignant tumor of prostate 588567140 Metastatic malignant neoplasm 343271537 Lower urin andrey tract symptoms due to benign prostatic hypertrophy 61235302624583 Thyroid nodule 367621877 Reduced libido 7095538 033266 JAKESA HASMUKH MARTÍNEZ, [facility]- [facility] [address] [place] [address] 06/19/2023 14:06:14 06/20/2023 14:25:37 Malignant tumor of prostate 722708509 Metastatic malignant neoplasm to bone 48417300 Male hot flash 984150677 [id number] [id number] Constantine watson MD, PHD [facility] [address] [place] [address] 08/29/2023 09:13:33 09/08/2023 11:15:57 Malignant tumor of prostate 116748740 Metastatic malignant neoplasm to bone 82564351 Male hot flash 952239993 475061 777388 Emeli Jarvi-Pott er [facility] [address] [place] [address] 08/29/2023 09:13:33 09/09/2023 03:58:40 Malignant tumor of prostate 240983219 Health Concerns Section Related Observation LastModified by Organization Detai ls LastModified Time None Recorded Concern Status LastModified by Organization Details LastModified Time None Recorded Advance Directives Directive None Recorded Payers Encounter Date Sequence Insurance Name Policy Number Policy Hernandez Covered Member ID Hernandez Member ID Guarantor Name 02/20/2023 1 [place] [id number] Edward D Sha [id number] Edward D Sha 05/23/2023 1 [place] [id number] Edward D Sha [id number] Edward D Sha 06/19/2023 1 [place] [id number] Edward D Sha [id number] Edward D Sha 08/29/2023 1 [place] [id number] Edward D Mooers [id number] Edward D Sha 08/29/2023 1 [place] [id number] Edward D Mooers [id number] Edward D Mooers Notes Date Note Type Note Provider Name and Address Organization Details Recorded Time 05/23/2023 text/html HPI Notes: 57M w ith metastatic prostate cancer= (aH5X7D1/1, Gillespie 4+5=9, PSA 28.4) Completed RT to prostate, [...] [employer] 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: FamHx: cardiac surgeon- brother; he thinks might be environmental Rectal ca- mother 80s JAKE MARTÍNEZ, [facility] [address] [place] [address],[address], [address], [facility] 06/19/2023 16:00:59 08/29/2023 text/html HPI Notes: 57M w ith metastatic prostate cancer= (uQ5U0O9/1, Robert 4+5=9, PSA 28.4) Completed RT to [...] (Wattson) ADT start: 08/23/22; Firmagon Last ADT: 05/23/23: [...] former smoker>20 yrs ago EtOH: none FamHx: cardiac surgeon- brother; he thinks might be environmental Rectal ca- mother 80s Constantine Thorne MD, PHD [address] [facility],[address], [place], [address], [place] [facility] 08/29/2023 10:16:47
--- OUTSIDE RECORDS SUMMARY | 2023-09-19 12:57 | XMS_ITS | Encounter Summary ---
Author Organization [employer] Address [address] [place] [address] Care Team Providers Care Log Getter Name Role Phone Clinician, Not Found MD Primary Care Provider Un available Reason for Visit * Reason Comments Video Visit Follow-up MWM Encounter Details Date Type Department Care Team (Late st Contact Info) Description 09/04/2023 11:30 AM CDT Telemedicine [facility] [address] [facility] [address] [place], [place] [address] Nima Vizcaino MD [address] [place], [place] [address] ASHLEY (obstructive sleep apnea) (Primary Dx); Prediabetes; [...] pharmacy Follow-up 4-6 months. Raza Vizcaino MD [facility] documented in [...] 2022 - had radiation treatment. Treatment through [facility]. He is on abiraterone & Eligard [...] Last 3 Encounters: 09/04/23 (!) 302 lb (830429 g) 05/27/23 (!) 328 lb (789915 g) 12/29/22 (!) 317 lb (751538 g) [facility] Assessment: Updating Your [...] 3 (190.5 cm) Wt (!) 302 lb (984641 g) BMI 37.75 kg/m?? General/constitutional: Alert in [...] index (BMI)of 40.0 to 44.9 in adult ([place]) E66.01 Z68.41 4. Vitamin D deficiency ([place]) E55.9 Plan for management includes the following: [...] up: in 4-6 months. Raza Vizcaino MD [facility] This service [...] deficiency documented in this encounter Care Teams Log Getter Relationship Specialty Start Date End Date Clinician, Not Found, [place] [address] PCP - General 10/12/15 documented as of this encounter
--- OUTSIDE RECORDS SUMMARY | 2023-09-19 12:57 | XMS_ITS | Encounter Summary ---
Author Organization [facility] Address [address] [place] [address] Care Team Providers Care Cardiac Sonographer Name Role Phone Clinician, Not Found Primary Care Provider Un available Encounter Details Date Type Department Care Team (Late st Contact Info) Description 09/04/2023 E-Visit [facility] [address] [facility] [place] [address] Mychart[place] [address] Social History Tobacco Use Types Packs/Day Years [...] on filedocumented in this encounter Care Teams Cardiac Sonographer Relationship Specialty Start Date End Date Clinician, Not Found, [place] [address] PCP - General 10/12/15 documented as of this encounter
--- OUTSIDE RECORDS SUMMARY | 2023-09-19 12:57 | XMS_ITS | Clinical Summary ---
Author Organization [employer] Address [address] [place] [address] Care Team Providers Care Exchange Mechanic Name Role Phone Clinician, Not Found [...] for each transition of care or referral. [employer] Allergies Active Allergy Reactions Criticality Noted Date [...] (BMI) of 40.0 to 44.9 in adult ([facility]) Inject 0.75 mL (2.4 mg) subcutaneously once a week. 9 mL 1 09/04/19 24 Active metFORMIN (GLUCOPHAGE) 500 MG tabletIndication s:Class 3 severe obesity due to excess calories with serious comorbidity and body mass index (BMI) of 40.0 to 44.9 in adult ([facility]) Take 2 Tablets (1,000 mg) by mouth two times a day with meals. 360 Tablet 1 09/04/19 24 Active semaglutide-weig ht management (WEGOVY) 2.4 MG/0.75ML pen injectionIndicat ions:Class 3 severe obesity due to excess calories with serious comorbidity and body mass index (BMI) of 40.0 to 44.9 in adult ([facility]) Inject 0.75 mL (2.4 mg) subcutaneously once a week. 9 mL 1 05/27/19 24 024 Discontinued(*M ed change OR same med OR reorder, new dose/directions ) metFORMIN (GLUCOPHAGE) 500 MG tabletIndication s:Class 3 severe obesity due to excess calories with serious comorbidity and body mass index (BMI) of 40.0 to 44.9 in adult ([facility]) Week one, take 1 tablet by [...] (BMI) of 40.0 to 44.9 in adult ([facility]) WEEK ONE, TAKE 1 TABLET BY [...] Team Description 09/04/2023 11:30 AM CDT Telemedicine [facility] [place] [address] [place] [address] [address] Nima Vizcaino MD ASHLEY (obstructive sleep apnea) (Primary Dx); Prediabetes; Class 3 severe obesity due to excess calories with serious comorbidity and body mass index (BMI) of 40.0 to 44.9 in adult ([facility]); Vitamin D deficiency ([facility]) 09/04/2023 E-Visit [facility] [address] [address] Mychart, Generic Provider 08/22/2023 Refill [facility] [place] [address] [place] [address] [address] Nima Vizcaino MD Refill (Metformin) 07/08/2023 Refill [facility] [address] [address] Serenity Barry PA-C Refill from Last 3 Months Immunizations Name Administration Dates Next Due Chicken Pox - History of Illness 11/24/1978 HepA Adult (19+ yrs) 02/15/2016 Influenza IIV4 (Quadrivalent) 0.5mL (45814) 06/2016 MMR 02/15/2016 Tdap 03/31/2014 Typhoid (Typhim [...] CDT) Cholesterol 160 0 - 199 mg/dl [facility] Triglyceride 227(H) 0 - 149 mg/dl [facility] HDL 40(L) >40 mg/dl [facility] LDL, Calc. 75 0 - 129 mg/dl [facility] Hours Fasting 4 hours [facility] 10/27/2009 2:43 PM CDT 10/27/2009 2:49 PM CDT Willard Chávez MD LAB_1 [facility] [address] [address] * PSA (Screen) 3616 (10/27/2009 2:43 PM CDT) Prostatic Spec Ag 0.37 0.00 - 4.00 ng/ml [facility] 10/27/2009 2:43 PM CDT 10/27/2009 2:49 PM CDT Willard Chávez MD LAB_1 [facility] [facility] [place] [phone] from Last 3 Months or Most Recently Relevant to Health Maintenance Care Teams Exchange Mechanic Relationship Specialty Start Date End Date Clinician, Not Found, [place] [address] PCP - General 10/12/15
--- OUTSIDE RECORDS SUMMARY | 2023-09-19 12:57 | XMS_ITS | Encounter Summary ---
Author Organization [employer] Address [address] [address] Care Team Providers Care Distance Learning Coordinator Name Role Phone Clinician, Not Found MD Primary Care Provider Un available Reason for Visit * Reason Comments Refill Encounter Details Date Type Department Care Team (Late st Contact Info) Description 07/08/2023 Refill [facility] [address] [facility] [address] [place], [place] [address] Serenity Barry PA-C [address] [place], [place] [address] Refill Social History Tobacco Use Types Packs/Day [...] Barry PA-C Last refill: 07/25/2022 Rx #: [id number] Juan Pablo Funes RN 9:08 AM 07/16/2023 documented in this encounter Plan of Treatment Not on file documented as of this encounter Visit Diagnoses Diagnosis Morbid obesity with BMI of 40.0-44.9, adult ([facility]) documented in this encounter Care Teams Distance Learning Coordinator Relationship Specialty Start Date End Date Clinician, Not Found, [place] [address] PCP - General 10/12/15 documented as of this encounter
--- OUTSIDE RECORDS SUMMARY | 2023-09-19 12:57 | XMS_ITS | Continuity of Care Document ---
Author Organization [facility] Address [address] [place] [address] Care Team Providers Care Registered Nurse Float Pool Name Role Phone [facility] Primary Care Provider Assessment Encounter Date Assessment Date Assessment LastModified by Organization Details LastModified Time 06/19/2023 06/19/2023 57M with metastatic prostate cancer= ([id number]/1, Robert 4+5=9, PSA 28.4) s/p RT to primary tumor and LN. On ADT with eligard and Abiraterone + Prednisone ( started 05/23/23). Noticeable increase in fatigue since starting kye/pred, possible increase in hot flashes. Not available 06/19/2023 14:48:07 Plan of Treatment Reminders Order Date Submit Date Provider Last Modified By Organization Details Last Modified Time Details Appointments NEW PATIENT 30 2023 11:30A M Not available Not available Not available Lab None recorded . Referral None recorded . Procedures None recorded . Surgeries None recorded . Imaging None recorded . Medication Orders None recorded . Patient TargetsNo targets recorded. Patient Instructions Encounter Date Encounter Id Patient Instructions Last Modified By Organization Details Last Modified Time 06/19/2023 [id number] 45 minutes total time spent reviewing records, speaking with patient and writing note. Not available 06/19/2023 14:57:46 Reason for Referral Referring Physician: Epi Rudd, Urology, Encounter Date: 07/24/2022 Problems Name Status Onset Date Resolution Date Notes Provider Name and Address Organization Details Recorded Time Malignant tumor of prostate Active 09/24/19 23 Britney perkins [facility] 09/23/2022 14:52:31 Metastatic malignant neoplasm Active 12/13/19 23 Constantine bernardo MD, PHD [address] [place] [address], [phone], [facility] 12/12/2022 18:06:08 Lower urinary tract symptoms due to benign prostatic hypertrophy Active 12/13/19 23 Constantine bernardo MD, PHD [address] [place] [address], [phone], [facility] 12/12/2022 18:06:15 Thyroid nodule Active 02/14/19 24 Constantine bernardo MD, PHD [address] [place] [address], [phone], [facility] 02/14/2023 17:42:33 Reduced libido Active 05/23/19 24 Constantine bernardo MD, PHD [address] [place] [address], [address], [facility] 05/23/2023 11:23:02 Metastatic malignant neoplasm to bone Active 06/19/19 24 JAKE MARTÍNEZ, [address], [address], [facility] 06/19/2023 14:41:38 Male hot flash Active 06/19/19 24 JAKE MARTÍNEZ [address], [address], [facility] 06/19/2023 14:41:40 Problem Notes None recorded. Procedures Surgical History Date Name Laterality Status Provider Name and Address Organization Details Recorded Time 4 COMPLEX VISIT completed Constantine Thorne MD, PHD [address] [place] [address], [phone], [facility] 08/29/2023 09:04:27 4 HEAD GROWER/blood draw completed Barby perkins [facility] 08/29/2023 09:38:08 4 COMPLEX VISIT completed Constantine Thorne MD, PHD [address] [place] [address], [phone], [facility] 05/23/2023 11:22:40 4 HEAD GROWER/blood draw completed Adeola Martinez null, [facility] 05/20/2023 21:33:17 4 HEAD GROWER/blood draw completed Emeli Montanez null, [facility] 02/20/2023 11:09:17 4 COMPLEX VISIT completed Constantine Thorne MD, PHD [address] [place] [address],[address], [place], [address], [facility] 02/14/2023 18:41:08 4 HEAD GROWER/blood draw completed Adeola Martinez null, [facility] 02/14/2023 17:04:01 3 HEAD GROWER/blood draw completed Adeola Martinez null, [facility] 12/12/2022 16:56:45 3 Eligard completed Britney Cespedes null, [facility] 10/24/2022 09:27:28 3 Firmagon completed Britney Cespedes null, [facility] 09/23/2022 15:02:16 3 Prostate Biopsy Procedure completed Epi Rudd MD [address] [place] [address],[address], [place], [address], [facility] 06/14/2022 10:32:09 3 Rocephin/Ceftr iaxone completed Serenity Lora null, [facility] 06/14/2022 10:13:42 3 Bladder Scan completed Serenity Lora null, [facility] 04/18/2022 12:43:19 3 Blood Draw/HEAD GROWER/PSA RESULTS completed Serenity Lora null, [facility] 04/18/2022 12:35:42 2 Bladder Scan completed Epi Rudd MD [address] [place] [address],[address], [place], [address], [facility] 01/14/2022 11:44:15 procedure on knee completed Epi Rudd MD [address] [facility] [address], [place], [address], [facility] 01/14/2022 11:39:04 Imaging Results None recorded. Procedure Notes None recorded. Medical Equipment None Reported. Allergies Allergen ID Allergen Name Allergen Category Reaction Reaction Severity Criticality Documentation Date Start Date Code Code System Note Provider Name and Address Organization Details Recorded Time 630781 morphine medicatio n Not available Not available Not available 01/14/2022 7052 RxNorm Epi Rudd MD [address] [facility] [address] [facility], [place], [address], [facility] 11:38:04 Medications Name Sig [...] Smoking Status Former Smoker Epi Rudd MD [address] [place] [address],[address], [place], [address], [facility] 01/14/2022 11:38:52 What Is Your Level Of Alcohol Consumption? None Information not available 01/14/2022 What Is Your Level Of Caffeine Consumption? Moderate [email or web address] Information not available 08/29/2023 What Was The Date Of Your Most Recent Tobacco Screening? 08/29/2023 [email or web address] Information not available 08/29/2023 Sex: Unknown Functional [...] Encounter Closed Date Diagnosis/Indication Diagnosis SNOMED-CT Code [id number] Constantine watson MD, PHD [facility] [address] [place] [address] 05/23/2023 09:57:22 05/26/2023 11:23:54 Malignant tumor of prostate 726570458 Metastatic malignant neoplasm 928752918 Lower urin andrey tract symptoms due to benign prostatic hypertrophy 72056802260621 Thyroid nodule 909935029 Reduced libido 1910301 [id number] JAKE MARTÍNEZ FLEECE TIER- [facility] [address] [place] [address] 06/19/2023 14:06:14 06/20/2023 14:25:37 Malignant tumor of prostate 282192366 Metastatic malignant neoplasm to bone 53705128 Male hot flash 730812265 [id number] Health Concerns Section Related Observation LastModified by Organization Detai ls LastModified Time None Recorded Concern Status LastModified by Organization Details LastModified Time None Recorded Payers Encounter Date Sequence Insurance Name Policy Number Policy Hernandez Covered Member ID Hernandez Member ID Guarantor Name 06/19/2023 1 [place] [id number] Darein Dalton [id number] Darien Dalton Notes Date Note Type [...] their care. 57M with metastatic prostate cancer= ([id number]/1, Robert 4+5=9, PSA 28.4) Completed RT to [...] of [employer] at [employer]: EtOH: FamHx: clinical pharmacist- brother; he thinks might be environmental Rectal ca- mother 80s JAKE MARTÍNEZ, [facility]- [address] [place] [address],[address], [place], [address], [facility] 06/19/2023 16:00:59
--- OUTSIDE RECORDS SUMMARY | 2023-09-19 12:57 | XMS_ITS | Referral Summary ---
Author Organization [employer] Address [address] [place] [address] Care Team Providers Care Nursing Staff Development Coordinator Name Role Phone Roverto Morley MD Primary Care Provider [phone] Allergies Active Allergy Reactions Criticality Noted Date [...] DO LAB - BLOOD [facility] [address] [facility] Lab (1st floor, no room number) [place] [address], [facility] from Last 3 Months or Most Recently Relevant to Health Maintenance Care Teams Nursing Staff Development Coordinator Relationship Specialty Start Date End Date Roverto Morley MD [facility] [address] [address] PCP - General Family Medicine 07/05/22
--- OUTSIDE RECORDS SUMMARY | 2023-09-19 12:57 | XMS_ITS | Encounter Summary ---
Author Organization [employer] Address [address] [place] [address] Care Team Providers Care Material Distributor Name Role Phone Clinician, Not Found MD Primary Care Provider Un available Reason for Visit * Reason Comments Refill Metformin Encounter Details Date Type Department Care Team (Late st Contact Info) Description 08/22/2023 Refill [facility] [address] [facility] [place], [place] [address] Nima Vizcaino MD [address] [place], [place] [id number] Refill (Metformin) Social History Tobacco Use Types [...] dinner. Route: (none) Class: E-Prescribing Order #: [id number] documented in this encounter Plan of Treatment Not on file documented as of this encounter Visit Diagnoses Diagnosis Class 3 severe obesity due to excess calories with serious comorbidity and body mass index (BMI) of 40.0 to 44.9 in adult ([facility]) documented in this encounter Care Teams Material Distributor Relationship Specialty Start Date End Date Clinician, Not Found, [place] [address] PCP - General 10/12/15 documented as of this encounter
--- OUTSIDE RECORDS SUMMARY | 2023-09-19 12:57 | XMS_ITS | Clinical Summary ---
Author Organization [employer] Address [address] [place] [address] Care Team Providers Care Casing Crew Name Role Phone Roverto Morley MD Primary Care Provider [phone] Allergies Active Allergy Reactions Criticality Noted Date [...] DO LAB - BLOOD [facility] [address] Lab (1st floor, no room number) [place] [address], [facility] from Last 3 Months or Most Recently Relevant to Health Maintenance Care Teams Casing Crew Relationship Specialty Start Date End Date Roverto Morley MD [facility] [address] [address] PCP - General Family Medicine 07/05/22
--- OUTSIDE RECORDS SUMMARY | 2023-09-19 12:57 | XMS_ITS | Clinical Summary ---
Author Organization [employer] Address [place], [place] [address] Care Team Providers Care Traffic Law Attorney Name Role Phone Roverto Morley MD Primary Care Provider [phone] Social History Tobacco Use Types Packs/Day Years Used Date Smoking Tobacco: Never Assessed Sex and Gender Information Value Date Recorded Sex Assigned at Not on file Gender Identity Not on file Sexual Orientation Not on file Plan of Treatment Upcoming Encounters Date Type Department Care Team (Late st Contact Info) Description 09/19/2023 1:00 PM CDT Ancillary Procedure [facility] [address] [place] [address] Health Maintenance Due Date Last Done Comments [...] (1 of 2) 10/24/2017 COVID-19 vaccine series ( season) 2022 01/26/2022, 01/15/2021, 06/20/2020, Additional history exists Influenza for age 50-64 10/12/2023 Pneumococcal series for age 6-64 Aged Out No longer eligible based on patient's age to complete this topic Care Teams Traffic Law Attorney Relationship Specialty Start Date End Date Roverto Morley MD [address] [place] [address] PCP - General Family Practice 02/22/22
== END 2023-09-19 12:55 | disposition home or self-care (01) ==
LOC: RAD 12:55
PROVIDERS: PCP Family Medicine; Visit Provider Family Medicine
DX: I25.2 Old myocardial infarction (principal); Z86.79 Personal history of other diseases of the circulatory system
CPT/HCPCS: 93306

== ENCOUNTER 2023-11-14 13:22 | Outpatient (RCR) | payer BC, SELFPAY ==
--- OUTSIDE RECORDS SUMMARY | 2023-10-17 13:36 | XMS_ITS | Clinical Summary ---
Author Organization [employer] Address [place], [place] [address] Care Team Providers Care Prep Person Name Role Phone Ema Morley MD Primary Care Provider [phone] Encounters Date Type Department Care Team Description 09/19/2023 1:00 PM CDT Ancillary Procedure [facility] [address] [place] [address] from Last 3 Months Social History Tobacco [...] 2) 10/24/2017 COVID-19 vaccine series (2022- season) 2023 01/26/2022, 01/15/2021, 06/20/2020, Additional history exists Influenza for age 50-64 10/12/2023 Pneumococcal series for age 6-64 Aged Out No longer eligible based on patient's age to complete this topic Procedures Procedure Name Priority Date/Time Associated Diagnosis Comments ECHO TTE COMPLETE WO CONTRAST Routine 09/19/2023 1:40 PM CDT Old myocardial infarction from Last 3 Months Results * ECHO TTE COMPLETE WO CONTRAST (09/19/2023 1:40 PM CDT) AORTIC VALVE MEAN PG 5 mmHg EJECTION FRACTION 74 % PEAK TR VELOCITY 2.6 m/s LVEDD 4.2 cm EJECTION FRACTION 65 - 70% Anatomical Region Laterality Modality Ultrasound 09/19/2023 1:08 PM CDT Narrative 09/19/2023 3:54 PM CDT ECHOCARDIOGRAM DARIEN KC ? Accession#: ?? [id number] : ?1965 57 years Study Date: ?? 09/19/2023 1:08:48 PM Gender: M ?BP: ? 127/80 mmHg Height: 188.00 cm ?BSA: ?2.61 m? ? ? Weight: 140.00 kg ?Tech: ? MHR ? Referring MD: EMA MORLEY Site: ? [facility] Reading Location: MOBILE OP Patient Location: Outpatient. Procedure: 2D, Color Doppler and Spectral Doppler. Indication for study: history of SVT Cardiac Rhythm: Normal sinus.Study quality: Fair. Final Impressions: 1. Normal LV size, mildly increased wall thickness, normal global and regional systolic function with an estimated EF of 65 - 70%. 2. Right ventricular cavity size is mildly enlarged, global systolic RV function is normal. 3. No significant valve disease detected. Comparison Compared to prior exam of 02/22/2022, there has been no significant change. Chamber Sizes and Function Normal left ventricular size, mildly increased wall thickness, normal global systolic function with an estimated EF of 65 - 70%. Left atrial size is normal. Right ventricular cavity size is mildly enlarged, global systolic RV function is normal. The right atrium is normal. Right atrial volume index is 10 ml/m? ? ?. Right atrial area is 14 cm? ? ?. The pulmonary artery is of normal size and origin. The sinus of Valsalva is normal sized. The ascending aorta is normal sized. Valves, RV Pressures and Diastolic Function The aortic valve is normal in structure and trileaflet, no stenosis and no regurgitation. The mitral valve is normal in structure, trace mitral regurgitation. Normal diastolic function. The tricuspid valve is normal in structure. Tricuspid regurgitation is trace regurgitation. The tricuspid regurgitant velocity is 2.6 m/s, the estimated right ventricular systolic pressure is 27 mmHg plus right atrial pressure. The pulmonic valve is normal. No pulmonary regurgitation. Pulmonary veins show a systolic blunting flow pattern. Masses, Effusion, Shunts There is no pericardial effusion. The inferior vena cava is dilated, respiratory size variation greater than 50%. No left to right shunting was detected by limited color flow Doppler interrogation of the interatrial septum. MEASUREMENTS AND CALCULATIONS 2-D Measurements and LV Function: LVID (d) ?4.2 cm LV FS% (2D) ?? 33 % LVID (s) ?2.8 cm LVOT diameter 2.4 cm IVS (d) ? 1.3 cm HR ?85 bpm LVPW (d) ?1.3 cm LA Vol index ??23 ml/m2 Ao Sinus ?3.3 cm RA Vol index ??10 ml/m2 Ao ST junct 3.0 cm RA area ? 14 cm? ? ? Asc Ao ?3.4 cm RV Max 4C (d) 3.8 cm LA ?3.8 cm Diastology: Mitral ?Tissue Doppler E Peak 0.9 m/s ??e', Septum ? 0.08 m/s A Peak 0.8 m/s ??e', Lateral ?0.13 m/s E/A ?1.0 ?E/e' Average ?? 8.33 DT ? 202 msec Aortic Valve: Vmax ? 1.4 m/s ??SAHRA (V) ?? 3.98 cm? ? ? VTI ?0.27 m ?? SAHRA (I) ?? 4.31 cm? ? ? LVOT V max 1.3 m/s ??Max PG ?8 mmHg LVOT VTI ?? 0.27 m ?? Mean PG ?? 5 mmHg SV ? 118 ml ?? Dim Index 0.99 SV index ?? 45 ml/m? ? ? CO ?10.0 l/min ?CI ?3.8 l/min/m? ? ? Mitral Valve: MVA ?3.8 cm? ? ? MV P 1/2 59 msec Tricuspid Valve and estimated PA pressures: TR Vmax 2.6 m/s TAPSE 2.4 cm TR maxG 27 mmHg . This study was interpreted by an [facility] accredited facility. CC: [facility]. ??Final ?? Procedure Note Constantine Osorio MD - 09/19/2023 ECHOCARDIOGRAM DARIEN KC : 1965 57 years Study Date: 09/19/2023 1:08:48 PM Gender: M BP: 127/80 mmHg Height: 188.00 cm BSA: 2.61 m? ? ? Weight: 140.00 kg Tech: R Referring MD: EMA MORLEY Site: [facility] Reading Location: MOBILE OP Patient Location: Outpatient. Procedure: 2D, Color Doppler and Spectral Doppler. Indication for study: history of SVT Cardiac Rhythm: Normal sinus.Study quality: Fair. Final Impressions: 1. Normal LV size, mildly increased wall thickness, normal global andregional systolic function with an estimated EF of 65 - 70%. 2. Right ventricular cavity size is mildly enlarged, global systolic RVfunction is normal. 3. No significant valve disease detected. Comparison Compared to prior exam of 02/22/2022, there has been no significantchange. Chamber Sizes and Function Normal left ventricular size, mildly increased wall thickness, normalglobal systolic function with an estimated EF of 65 - 70%. Left atrialsize is normal. Right ventricular cavity size is mildly enlarged, globalsystolic RV function is normal. The right atrium is normal. Right atrialvolume index is 10 ml/m? ? ?. Right atrial area is 14 cm? ? ?. The pulmonaryartery is of normal size and origin. The sinus of Valsalva is normalsized. The ascending aorta is normal sized. Valves, RV Pressures and Diastolic Function The aortic valve is normal in structure and trileaflet, no stenosis and noregurgitation. The mitral valve is normal in structure, trace mitralregurgitation. Normal diastolic function. The tricuspid valve is normal instructure. Tricuspid regurgitation is trace regurgitation. The tricuspidregurgitant velocity is 2.6 m/s, the estimated right ventricular systolicpressure is 27 mmHg plus right atrial pressure. The pulmonic valve isnormal. No pulmonary regurgitation. Pulmonary veins show a systolicblunting flow pattern. Masses, Effusion, Shunts There is no pericardial effusion. The inferior vena cava is dilated,respiratory size variation greater than 50%. No left to right shunting wasdetected by limited color flow Doppler interrogation of the interatrialseptum. MEASUREMENTS AND CALCULATIONS 2-D Measurements and LV Function: LVID (d) 4.2 cm LV FS% (2D) 33 % LVID (s) 2.8 cm LVOT diameter 2.4 cm IVS (d) 1.3 cm HR 85 bpm LVPW (d) 1.3 cm LA Vol index 23 ml/m2 Ao Sinus 3.3 cm RA Vol index 10 ml/m2 Ao ST junct 3.0 cm RA area 14 cm? ? ? Asc Ao 3.4 cm RV Max 4C (d) 3.8 cm LA 3.8 cm Diastology: Mitral Tissue Doppler E Peak 0.9 m/s e', Septum 0.08 m/s A Peak 0.8 m/s e', Lateral 0.13 m/s E/A 1.0 E/e' Average 8.33 DT 202 msec Aortic Valve: Vmax 1.4 m/s SAHRA (V) 3.98 cm? ? ? VTI 0.27 m SAHRA (I) 4.31 cm? ? ? LVOT V max 1.3 m/s Max PG 8 mmHg LVOT VTI 0.27 m Mean PG 5 mmHg SV 118 ml Dim Index 0.99 SV index 45 ml/m? ? ? CO 10.0 l/min CI 3.8 l/min/m? ? ? Mitral Valve: MVA 3.8 cm? ? ? MV P 1/2 59 msec Tricuspid Valve and estimated PA pressures: TR Vmax 2.6 m/s TAPSE 2.4 cm TR maxG 27 mmHg . This study was interpreted by an [facility] accredited facility. CC: [facility] (med records) [facility]. Final Ema Morley MD ECHO ORD from Last 3 Months Care Teams Prep Person Relationship Specialty Start Date End Date Ema Morley MD PCP - General Family Practice 02/22/22
--- OUTSIDE RECORDS SUMMARY | 2023-10-17 13:36 | XMS_ITS | Referral Summary ---
Author Organization [facility] Address [address] [place] [address] Care Team Providers Care Load Blocker Name Role Phone Roverto Morley MD Primary Care Provider [phone] Allergies Active Allergy Reactions Criticality Noted Date [...] DO LAB - BLOOD [facility] Acute Care Lab [address] [facility] Lab (1st floor, no room number) [place] [address], [facility] from Last 3 Months or Most Recently Relevant to Health Maintenance Care Teams Load Blocker Relationship Specialty Start Date End Date Roverto Morley MD [facility] [address] [address] PCP - General Family Medicine 07/05/22
--- OUTSIDE RECORDS SUMMARY | 2023-10-17 13:36 | XMS_ITS | Clinical Summary ---
Author Organization [facility] Address [address] [place] [address] Care Team Providers Care Youth Leader Name Role Phone Roverto Morley MD Primary Care Provider [phone] Allergies Active Allergy Reactions Criticality Noted Date [...] [place] DO LAB - BLOOD [facility] Acute Care Lab [address] Lab (1st floor, no room number) [place] [address], [email or web address] from Last 3 Months or Most Recently Relevant to Health Maintenance Care Teams Youth Leader Relationship Specialty Start Date End Date Roverto Morley MD [facility] [address] [address] PCP - General Family Medicine 07/05/22
--- OUTSIDE RECORDS SUMMARY | 2023-10-17 13:36 | XMS_ITS | Clinical Summary ---
Author Organization [facility] Address [address] [place] [address] Care Team Providers Care Audit Machine Operator Name Role Phone Clinician, Not Found MD Primary Care Provider Un available Source Comments You are receiving this document as you are listed as the primary care provider,follow-up provider, or the patient has been referred to you for consultation.This is in compliance with the Medicare and[facility] EHR Incentive Program,which states Providers who transition their patient to another setting of careor provider of care or refers their patient to another provider of care shouldprovide summary care record for each transition of care or referral. [facility] Allergies Active Allergy Reactions Criticality Noted Date [...] of 40.0 to 44.9 in adult (HRC) Inject 0.75 mL (2.4 mg) subcutaneously once a week. 9 mL 1 09/04/2023 Active metFORMIN (GLUCOPHAGE) 500 MG tabletIndications: Class 3 severe obesity due to excess calories with serious comorbidity and body mass index (BMI) of 40.0 to 44.9 in adult (HRC) Take 2 Tablets (1,000 mg) by mouth two times a day with meals. 360 Tablet 1 09/04/2023 Active amoxicillin-clavul anate (AUGMENTIN) 875-125 mg per tablet Take 1 Tablet by mouth two times a day for 7 days. Take with food or milk. 14 Tablet 10/01/2023 Active Problems Problem Noted Date Diagnosed Date Vitamin D deficiency 05/09/2022 Prediabetes 05/09/2022 Class 3 severe obesity due t o excess calories with serious comorbidity and body mass index (BMI) of 40.0 to 44.9 in adult 12/15/2021 Brain concussion 05/09/2016 Overview (05/09/2016): Multiple while playing football between ages 14-30; too many to count according to patient ASHLEY (obstructive sleep apnea) 03/31/2014 Overview (02/15/2016): CPAP DJD (degenerative joint disease) of knee 010 Elevated blood pressure read ing without diagnosis of hypertension 10/27/2009 Keloid of skin 10/27/2009 Encounters Date Type Department Care Team Description 10/01/2023 8:40 AM CDT Office Visit [facility] [address] [facility] [address] [place] [address] Leah Turner PA-C Injury of finger of left hand, initial encounter; Finger infection 10/01/2023 8:35 AM CDT Ancillary Procedure [facility] [address] [place] [address] Leah Turner PA-C Injury of finger of left hand, initial encounter 09/04/2023 11:30 AM CDT Telemedicine [facility] [address] [place] [address] [address] [place] [address] Nima Vizcaino MD ASHLEY (obstructive sleep apnea) (Primary Dx); Prediabetes; Class 3 severe obesity due to excess calories with serious comorbidity and body mass index (BMI) of 40.0 to 44.9 in adult (HRC); Vitamin D deficiency (HRC) 09/04/2023 E-Visit [facility] [address] [address] Mychart, Generic Provider 08/22/2023 Refill [facility] [address] [address] Nima Vizcaino MD Refill (Metformin) from Last 3 Months Immunizations Name Administration Dates Next Due Chicken Pox - History of Illness 11/24/1978 HepA Adult (19+ yrs) 02/15/2016 Influenza IIV4 (Quadrivalent) 0.5mL (96482) 06/2016 MMR 02/15/2016 Tdap 03/31/2014 Typhoid (Typhim [...] Sign Reading Time Taken Comments Blood Pressure 136/76 10/01/2023 8:05 AM CDT Pulse 83 10/01/2023 8:05 AM CDT Temperature 37.1 ??C (98.8 ??F) 10/01/2023 8:05 AM CD T Respiratory Rate 18 10/01/2023 8:05 AM CDT Oxygen Saturation 95% 10/01/2023 8:05 AM CDT Inhaled Oxygen Concentration - - [...] Procedure Name Priority Date/Time Associated Diagnosis Comments XR FINGER LT INDEX 2+ VIEWS STAT 10/01/2023 8:39 AM CDT Injury of finger of left hand, initial encounter PROSTATIC SPECIFIC ANTIGEN(SCREEN) Routine 10/27/2009 2:43 PM CDT Screening PSA (Prostate Specific Antigen) LIPID PANEL & DIRECT LDL (IF NEEDED) Routine 10/27/2009 2:43 PM CDT Screening for Lipoid Disorders from Last 3 Months or Most Recently Relevant to Health Maintenance Results * XR Finger Lt Index 2+ Views (10/01/2023 8:39 AM CDT) Anatomical Region Laterality Modality Upper Extremity, Hand Digital Ra diography 10/01/2023 8:35 AM CDT Impressions 10/01/2023 8:42 AM CDT COMPARISON: ??None. FINDINGS: ??No fracture, dislocation, or radiopaque foreign body is identified. Moderate degenerative changes at the second MCP joint. Narrative Procedure Note Danish Mejia MD - 10/01/2023 IMPRESSION COMPARISON: None. FINDINGS: No fracture, dislocation, or radiopaque foreign body isidentified. Moderate degenerative changes at the second MCP joint. Leah Turner PA-C RAD GD * (ABNORMAL) LIPID PANEL AND DIRECT LDL(IF NEEDED) (10/27/2009 2:43 PM CDT) Cholesterol 160 0 - 199 mg/dl [facility] Triglyceride 227(H) 0 - 149 mg/dl [facility] HDL 40(L) >40 mg/dl [facility] LDL, Calc. 75 0 - 129 mg/dl [facility] Hours Fasting 4 hours [facility] 10/27/2009 2:43 PM CDT 10/27/2009 2:49 PM CDT Willard Chávez MD LAB_1 [facility] [address] [address] * PSA (Screen) 3616 (10/27/2009 2:43 PM CDT) Prostatic Spec Ag 0.37 0.00 - 4.00 ng/ml [facility] 10/27/2009 2:43 PM CDT 10/27/2009 2:49 PM CDT Willard Chávez MD LAB_1 [facility] [address] [facility] [place] [phone] from Last 3 Months or Most Recently Relevant to Health Maintenance Care Teams Audit Machine Operator Relationship Specialty Start Date End Date Clinician, Not Found, [place] [address] PCP - General 10/12/15
--- OUTSIDE RECORDS SUMMARY | 2023-10-17 13:37 | XMS_ITS | Encounter Summary ---
Author Organization [facility] Address [address] [place] [address] Care Team Providers Care Batting Machine Operator Insulation Name Role Phone Clinician, Not Found Primary Care Provider Un available Encounter Details Date Type Department Care Team (Late st Contact Info) Description 09/04/2023 E-Visit [facility] [address] [facility] [place] [address] Mychart, [place] [address] Social History Tobacco Use Types Packs/Day Years [...] on filedocumented in this encounter Care Teams Batting Machine Operator Insulation Relationship Specialty Start Date End Date Clinician, Not Found, [place] [address] PCP - General 10/12/15 documented as of this encounter
--- OUTSIDE RECORDS SUMMARY | 2023-10-17 13:37 | XMS_ITS | Encounter Summary ---
Author Organization [facility] Address [address], [place] [address] Care Team Providers Care Acute Care Occupational Therapist Name Role Phone Clinician, Not Found MD Primary Care Provider Un available Reason for Referral * Procedure/Equipment (Routine) - Incomplete Specialty Diagnoses / Procedures Referred By Contac t Referred To Contact Diagnoses Injury of finger of left hand, initial encounter Procedures XR Finger Lt Index 2+ Views Leah Turner PA-C [address] [place] [address] Referral ID Status Reason Start Date Expiration Date V isits Requested Visits Authorized [id number] Incomplete 10/01/2023 12/30/2024 1 1 Reason for Visit * Reason Comments INJURY, FINGERS Encounter Details Date Type Department Care Team (Late st Contact Info) Description 10/01/2023 8:40 AM CDT Office Visit [facility] [address] [facility] [address] [place] [address] Leah Turner PA-C [address] [place], [place] [id number] Injury of finger of left hand, initial encounter; Finger infection Social History Tobacco Use Types Packs/Day Years [...] CDT Inhaled Oxygen Concentration - - Weight - - Height - - Body Mass Index - - documented in this encounter Patient Instructions * Attachments The following attachments cannot be sent through Care Everywhere. * Cellulitis (Spanish) documented in this encounter Progress Notes * Leah Turner PA-C - 10/01/2023 8:40 AM CDT Clinic Visit SUBJECTIVE: Darien Dalton is a 57 y.o.male who presents to clinic with concern for an injury to his left index finger. He states on Friday he was working on his car when a screwdriver jabbed into his finger and came out the tip of his finger he states it did bleed quite a bit and he did try to cleaned it out well and he did put a glue liquid bandage on it. He states since then it started to get swollen more tender and painful he now feels like the pain is starting to move up into his hand. Denies any limited range of motion or any other injuries. No fevers chills or body aches. No pus drainage. Past Medical History: Past Medical History: Diagnosis Date Arthritis DJD knees Concussion multiple due to football playing Elevated BP without diagnosis of hypertension ASHLEY (obstructive sleep apnea) Overweight (HRC) Adverse Drug Reactions: Morphine and Morphine [fumaric acid] Medications: Abiraterone Acetate, Multiple Vitamin, alfuzosin, amoxicillin- clavulanate, cholecalciferol, leuprolide (4 month), metFORMIN, and semaglutide- weight management Family History: Family History Problem Relation Name Age of Onset Cancer, Breast Mother Hypertension Mother Hypertension Father Coronary Artery Disease Father Social History: Social History Tobacco Use Smoking status: Former Current packs/day: 0.00 Types: Cigarettes Start date: 11/06/1991 Quit date: 11/05/1993 Years since quittin.9 Smokeless tobacco: Never Vaping Use Vaping status: Never Used Substance Use Topics Alcohol use: Not Currently Alcohol/week: 6.0 standard drinks of alcohol Types: 6 Cans of beer per week Drug use: No Vital Signs: BP 136/76 (BP Location: Right Arm, BP Cuff Size: Large) Pulse 83 Temp 37.1 ??C (98.8 ??F) (Oral) Resp 18 SpO2 95% Review of Systems: All systems were reviewed and found to be negative except as noted below. OBJECTIVE: General: NAD Exam of the left hand index finger shows on the distal tip a laceration that is a proximally 5 mm with than normal tissue and as you move proximally onto the volar aspect of the distal phalanx a larger puncture that is a proximally 1 cm it is well aligned glue was applied. It is swollen and tender to touch. No significant spreading redness, warmth or induration. Normal hand and finger range of motion without pain. Digits are pink, warm with brisk cap refill. Light touch and motor functions intact in the radial, median, ulnar nerve distributions. Last tetanus was in 2014. Orders Placed This Encounter XR Finger Lt Index 2+ Views amoxicillin-clavulanate (AUGMENTIN) 875-125 mg per tablet Labs: @EDLABS@ X-Rays: X-rays are initially evaluated myself independently. My independent evaluation of the x-ray of the left index finger shows no fractures, foreign body oracute findings. Radiology read: XR Finger Lt Index 2+ Views Result Date: 10/01/2023 COMPARISON: None. FINDINGS: No fracture, dislocation, or radiopaque foreign body is identified. Moderate degenerative changes at the second MCP joint. ASSESSMENT: 1. Injury of finger of left hand, initial encounter 2. Finger infection PLAN: @EDMEDS@ Medications Prescribed this Visit Disp Refills Start End amoxicillin-clavulanate (AUGMENTIN) 875-125 mg per tablet 14 Tablet 0 10/01/2023 10/08/2023 Take 1 Tablet by mouth two times a day for 7 days. Take with food or milk. Oral I discussed my findings and concerns of the patient I did recommend an x-ray today which was completed and did not show any acute findings at this time given the swelling and worsening pain moving upinto the hand I do think there might be a mild infection there and I would recommend starting him on antibiotics patient was put on Augmentin twice daily for 7 days recommend soaking the finger 2 to 3 times a day in clean warm water and supportive cares with Tylenol and ibuprofen and monitor for any new or worsening symptoms I did review signs and symptoms of worsening infection and when to return. All questions and concerns were addressed today. Patient is aware and agrees with the plan. Patient was discharged ambulatory in stable condition today. RTC p.r.n. documented in this encounter Nursing Notes * Rosa Castanon RN - 10/01/2023 8:40 AM CDT Pt states he was working on his car on Friday when a screwdriver jabbed into it, breaking skin. Pt states it did bleed quite a bit and now his entire hand is starting to hurt. He denies any fevers. Patient requests an excuse letter for work/school: No documented in this encounter Plan of Treatment Not on file documented as of this encounter Results * XR Finger Lt Index 2+ [...] No fracture, dislocation, or radiopaque foreign body pablotified. Moderate degenerative changes at the second MCP joint. Leah ROWELL GD documented in this encounter Visit Diagnoses Diagnosis Injury of finger of left hand, initial encounter Finger infection Unspecified local infection of skin and subcutaneous tissue Injury of finger of left hand, initial encounter documented in this encounter Care Teams Acute Care Occupational Therapist Relationship Specialty Start Date End Date Clinician, Not Found, [place] [address] PCP - General 10/12/15 documented as of this encounter
--- OUTSIDE RECORDS SUMMARY | 2023-10-17 13:37 | XMS_ITS | Encounter Summary ---
Author Organization [employer] Address [address] [address] Care Team Providers Care Licensed Chemical Spray Technician Name Role Phone Clinician, Not Found MD Primary Care Provider Un available Reason for Visit * Reason Comments Refill Encounter Details Date Type Department Care Team (Late st Contact Info) Description 07/08/2023 Refill [facility] [address] [facility] [address] [place], [place] [address] Serenity Barry PA-C [address] [place], [place] [address] Refill Social History Tobacco Use Types Packs/Day [...] Barry PA-C Last refill: 07/25/2022 Rx #: [id number] Juan Pablo Funes RN 9:08 AM 07/16/2023 documented in this encounter Plan of Treatment Not on file documented as of this encounter Visit Diagnoses Diagnosis Morbid obesity with BMI of 40.0-44.9, adult (HRC) documented in this encounter Care Teams Licensed Chemical Spray Technician Relationship Specialty Start Date End Date Clinician, Not Found, [place] [address] PCP - General 10/12/15 documented as of this encounter
--- OUTSIDE RECORDS SUMMARY | 2023-10-17 13:37 | XMS_ITS | Encounter Summary ---
Author Organization [employer] Address [address] [place] [address] Care Team Providers Care Moving Picture Operator Name Role Phone Clinician, Not Found MD Primary Care Provider Un available Reason for Visit * Reason Comments Refill Metformin Encounter Details Date Type Department Care Team (Late st Contact Info) Description 08/22/2023 Refill [facility] [address] [facility] [place], [place] [address] Nima Vizcaino MD [address] [place], [place] [phone] Refill (Metformin) Social History Tobacco Use Types [...] dinner. Route: (none) Class: E-Prescribing Order #: [id number] documented in this encounter Plan of Treatment Not on file documented as of this encounter Visit Diagnoses Diagnosis Class 3 severe obesity due to excess calories with serious comorbidity and body mass index (BMI) of 40.0 to 44.9 in adult (HRC) documented in this encounter Care Teams Moving Picture Operator Relationship Specialty Start Date End Date Clinician, Not Found, [place] [address] PCP - General 10/12/15 documented as of this encounter
--- OUTSIDE RECORDS SUMMARY | 2023-10-17 13:37 | XMS_ITS | Encounter Summary ---
Author Organization [employer] [employer] Address [address] [facility] [place] [address] Care Team Providers Care Waterworks Operator Name Role Phone Clinician, Not Found MD Primary Care Provider Un available Reason for Visit * Reason Comments Video Visit Follow-up [facility] Encounter Details Date Type Department Care Team (Late st Contact Info) Description 09/04/2023 11:30 AM CDT Telemedicine [facility] [address] [facility] [address] [place], [place] [address] Nima Vizcaino MD [address] [place], [place] [address] ASHLEY (obstructive sleep apnea) (Primary Dx); Prediabetes; [...] pharmacy Follow-up 4-6 months. Raza Vizcaino MD [facility] [...] 2022 - had radiation treatment. Treatment through [facility]. He is on abiraterone & Eligard [...] Last 3 Encounters: 09/04/23 (!) 302 lb (581418 g) 05/27/23 (!) 328 lb (429431 g) 12/29/22 (!) 317 lb (278944 g) [facility] Assessment: Updating Your [...] 3 (190.5 cm) Wt (!) 302 lb (612786 g) BMI 37.75 kg/m?? General/constitutional: Alert in [...] index (BMI)of 40.0 to 44.9 in adult ([facility]) E66.01 Z68.41 4. Vitamin D deficiency ([facility]) E55.9 Plan for management includes the following: [...] up: in 4-6 months. Raza Vizcaino MD [facility] [...] deficiency documented in this encounter Care Teams Waterworks Operator Relationship Specialty Start Date End Date Clinician, Not Found, [place] [address] PCP - General 10/12/15 documented as of this encounter
--- OUTSIDE RECORDS SUMMARY | 2023-10-17 13:37 | XMS_ITS | Encounter Summary ---
Author Organization [employer] Address [address], [place] [address] Care Team Providers Care Route Salesman And Driver Name Role Phone Clinician, Not Found MD Primary Care Provider Un available Reason for Visit * Procedure/Equipment (Routine) - Incomplete Specialty Diagnoses / Procedures Referred By Contac t Referred To Contact Diagnoses Injury of finger of left hand, initial encounter Procedures XR Finger Lt Index 2+ Views Leah Turner PA-C [address] [place] [address] Referral ID Status Reason Start Date Expiration Date V isits Requested Visits Authorized [id number] Incomplete 10/01/2023 12/30/2024 1 1 Encounter Details Date Type Department Care Team (Latest Contact Info) Description 10/01/2023 8:35 AM CDT Ancillary Procedure [facility] [address] [place] [phone] Leah Turner PA-C [address] [place] [address] Injury of finger of left hand, initial encounter Social History Tobacco Use Types Packs/Day Years [...] hand, initial encounter documented in this encounter Results * XR Finger Lt [...] changes at the second MCP joint. Leah BARBA documented in this encounter Visit Diagnoses Diagnosis Injury of finger of left hand, initial encounter documented in this encounter Care Teams Route Salesman And Driver Relationship Specialty Start Date End Date Clinician, Not Found, [place] [address] PCP - General 10/12/15 documented as of this encounter
[2023-10-17 13:54] LABS: Albumin* 4.2 g/dL (3.3-5.0); Chloride* 106 mmol/L (96-114)
[2023-10-17 13:55] LABS: Potassium* 4.1 mmol/L (3.6-5.1); Sodium* 139 mmol/L (135-149)
[2023-10-17 13:57] LABS: Anion Gap 6 mEq/L (7-15); Bilirubin Total* 0.5 mg/dL (0.1-1.5); Carbon Dioxide* 27 mmol/L (20-32); Creatinine* 0.7 mg/dL (0.5-1.5); Estimated Glomerular Filt Rate 109 ml/min
[2023-10-17 13:58] LABS: Alanine Aminotransferase* 26 U/L (4-50); Alkaline Phosphatase* 77 U/L (40-150); Aspartate Amino Transferase* 29 U/L (12-35); Blood Urea Nitrogen* 10 mg/dL (7-30); Calcium* 9.8 mg/dL (8.4-10.6); Glucose* 97 mg/dL (60-115); Total Protein* 6.6 g/dL (6.0-8.3)
[2023-11-14 13:39] LABS: Albumin* 3.9 g/dL (3.3-5.0); Chloride* 107 mmol/L (96-114); Potassium* 3.8 mmol/L (3.6-5.1); Sodium* 141 mmol/L (135-149)
[2023-11-14 13:41] LABS: Anion Gap 5 mEq/L (7-15); Bilirubin Total* 0.3 mg/dL (0.1-1.5); Carbon Dioxide* 29 mmol/L (20-32); Creatinine* 0.8 mg/dL (0.5-1.5); Estimated Glomerular Filt Rate 104 ml/min
[2023-11-14 13:42] LABS: Alanine Aminotransferase* 24 U/L (4-50); Alkaline Phosphatase* 94 U/L (40-150); Aspartate Amino Transferase* 21 U/L (12-35); Blood Urea Nitrogen* 14 mg/dL (7-30); Calcium* 9.5 mg/dL (8.4-10.6); Glucose* 109 mg/dL (60-115); Total Protein* 6.3 g/dL (6.0-8.3)
== END 2024-11-10 08:28 | disposition home or self-care (01) ==
LOC: LAB 13:22
PROVIDERS: PCP Family Medicine; Visit Provider Urology
DX: C61 Malignant neoplasm of prostate (principal)
CPT/HCPCS: 36415; 80053

== ENCOUNTER 2024-02-06 09:24 | Outpatient (CLI) | payer BC, SELFPAY | END 2024-02-06 09:25 | disposition home or self-care (01) | LOC: NFLDREF 02-11 23:34 | PROVIDERS: PCP Family Medicine; Referring Provider Family Medicine; Visit Provider Family Medicine | DX: R79.89 Other specified abnormal findings of blood chemistry (principal); Z13.220 Encounter for screening for lipoid disorders | CPT/HCPCS: 80061; 82306 ==

== ENCOUNTER 2024-02-06 14:31 | Outpatient (CLI) | payer BC, SELFPAY ==
[2024-02-06 16:34] LABS: Albumin* 3.8 g/dL (3.3-5.0); Chloride* 107 mmol/L (96-114)
[2024-02-06 16:35] LABS: Potassium* 3.8 mmol/L (3.6-5.1); Sodium* 138 mmol/L (135-149)
[2024-02-06 16:37] LABS: Alkaline Phosphatase* 113 U/L (40-150); Anion Gap 6 mEq/L (7-15); Aspartate Amino Transferase* 20 U/L (12-35); Bilirubin Total* 0.3 mg/dL (0.1-1.5); Blood Urea Nitrogen* 16 mg/dL (7-30); Carbon Dioxide* 25 mmol/L (20-32); Creatinine* 0.8 mg/dL (0.5-1.5); Estimated Glomerular Filt Rate 104 ml/min; Total Protein* 6.3 g/dL (6.0-8.3)
[2024-02-06 16:38] LABS: Alanine Aminotransferase* 23 U/L (4-50); Calcium* 9.6 mg/dL (8.4-10.6); Glucose* 91 mg/dL (60-115)
== END 2024-02-06 14:32 | disposition home or self-care (01) ==
LOC: NPINS 14:34
PROVIDERS: PCP Family Medicine; Referring Provider Urology; Visit Provider Urology
DX: C61 Malignant neoplasm of prostate (principal)
CPT/HCPCS: 80053

== ENCOUNTER 2024-04-09 09:01 | Outpatient (CLI) | payer BC, SELFPAY | END 2024-04-09 09:02 | disposition home or self-care (01) | LOC: NFLDREF 04-12 02:17 | PROVIDERS: PCP Family Medicine; Referring Provider Family Medicine; Visit Provider Family Medicine | DX: Z13.228 Encounter for screening for other metabolic disorders (principal) | CPT/HCPCS: 80053 ==

== ENCOUNTER 2024-05-07 08:52 | Outpatient (CLI) | payer BC, SELFPAY | END 2024-05-07 08:53 | disposition home or self-care (01) | LOC: NFLDREF 05-08 07:39 | PROVIDERS: PCP Family Medicine; Referring Provider Family Medicine; Visit Provider Family Medicine | DX: R73.03 Prediabetes (principal) | CPT/HCPCS: 80048 ==

== ENCOUNTER 2024-07-09 08:50 | Outpatient (CLI) | payer BC, SELFPAY ==
[2024-07-09 14:19] LABS: Albumin* 3.8 g/dL (3.3-5.0); Chloride* 104 mmol/L (96-114); Sodium* 141 mmol/L (135-149)
[2024-07-09 14:20] LABS: Potassium* 4.1 mmol/L (3.6-5.1)
[2024-07-09 14:22] LABS: Alanine Aminotransferase* 24 U/L (4-50); Alkaline Phosphatase* 83 U/L (40-150); Anion Gap 7 mEq/L (7-15); Aspartate Amino Transferase* 25 U/L (12-35); Bilirubin Total* 0.4 mg/dL (0.1-1.5); Blood Urea Nitrogen* 13 mg/dL (7-30); Carbon Dioxide* 30 mmol/L (20-32); Creatinine* 0.9 mg/dL (0.5-1.5); Estimated Glomerular Filt Rate 100 ml/min; Total Protein* 6.2 g/dL (6.0-8.3)
[2024-07-09 14:23] LABS: Calcium* 9.2 mg/dL (8.4-10.6); Glucose* 103 mg/dL (60-115)
== END 2024-07-09 08:51 | disposition home or self-care (01) ==
LOC: NPINS 08:51
PROVIDERS: PCP Family Medicine; Visit Provider Urology
DX: C61 Malignant neoplasm of prostate (principal)
CPT/HCPCS: 80053

== ENCOUNTER 2024-08-06 09:15 | Outpatient (CLI) | payer BC, SELFPAY ==
--- OUTSIDE RECORDS SUMMARY | 2024-06-22 11:00 | XMS_ITS | Encounter Summary ---
Author Organization [employer] Address [address] [address] Care Team Providers Care Land Leasing Information Clerk Name Role Phone Clinician, Not Found MD Primary Care Provider Un available Reason for Visit * Reason Comments Prior Authorization For Medication Wekhoiv y - approved Encounter Details Date Type Department Care Team (Late st Contact Info) Description 06/22/2024 11:00 AM CDT E-Visit [facility] [address] [facility] [address] [place], [place] [address] Nima Vizcaino MD [address] [place] [address] Chief Comp: Prior Authorization For Medication Social [...] Recorded Sex Assigned at Not on file Legal Sex Male 5:34 AM CDT Gender Identity Not on file Sexual Orientation Not on file 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 Insurance prior authorization approval for Wegovy 2.4 mg has been received. Patient notified via [employer] message. * Cindy Gonzales RN - 06/30/2024 2:15 PM CDT Called [employer] again to clarify, as patient has stated in [employer] message that they have enrolled with [employer]. Was informed by sales development representative that they are able to complete prior authorization over the phone with me. Answered all clinical questions. Was requested to fax chart notes to [phone]. Chart notes have been faxed and we await to hear back from insurance for their determination. * Cindy Gonzales RN - 06/29/2024 1:37 PM CDT Called pharmacy to confirm pharmacy benefits to ensure prior authorization was sent to accurate insurance. Was provided with the following: BIN: [id number] N: [employer] Group ID: [id number] Called [employer] at the number above and was informed that in order to submit the prior authorization for Wegovy 2.4 mg, the patient must engage with [employer]. Their phone number is [phone]. Patient notified via [employer] message. * Cindy Gonzales RN - 06/28/2024 11:36 AM CDT Received prior authorization denial for Wegovy. Denial reason: Closed Prior Authorization Portal Close reason: Other Payer: [employer] Note from payer: Drug is not covered by plan Patient notified via [employer] message. Forwarded to provider to determine recommendations/next steps. documented in this encounter Plan of Treatment Upcoming Encounters Date Type Department Care Team (Late st Contact Info) Description 09/02/2024 9:00 AM CDT Telemedicine [facility] [address] [facility] [address] [place], [place] [address] Nima Vizcaino MD [address] [place], [place] [address] documented as of this encounter Visit Diagnoses Not on filedocumented in this encounter Care Teams Land Leasing Information Clerk Relationship Specialty Start Date End Date Clinician, Not Found, [place] [address] PCP - General 10/12/15 documented as of this encounter
[2024-08-06 13:12] LABS: Albumin* 4.3 g/dL (3.3-5.0); Chloride* 103 mmol/L (96-114); Sodium* 139 mmol/L (135-149)
[2024-08-06 13:13] LABS: Potassium* 4.2 mmol/L (3.6-5.1)
[2024-08-06 13:15] LABS: Alanine Aminotransferase* 24 U/L (4-50); Alkaline Phosphatase* 100 U/L (40-150); Anion Gap 12 mEq/L (7-15); Aspartate Amino Transferase* 27 U/L (12-35); Bilirubin Total* 0.6 mg/dL (0.1-1.5); Blood Urea Nitrogen* 13 mg/dL (7-30); Calcium* 10.1 mg/dL (8.4-10.6); Carbon Dioxide* 24 mmol/L (20-32); Creatinine* 0.9 mg/dL (0.5-1.5); Estimated Glomerular Filt Rate 100 ml/min; Glucose* 119 mg/dL (60-115)
--- OUTSIDE RECORDS SUMMARY | 2024-08-10 02:19 | XMS_ITS | Clinical Summary ---
Author Organization [facility] Address [address] [place] [id number] Care Team Providers Care Safety Analyst Name Role Phone Roverto Morley MD Primary Care Provider [phone] Allergies Active Allergy Reactions Criticality Noted Date [...] at Not on file Legal Sex Male 6:09 PM CDT Gender Identity Not on file Sexual [...] 1967 FLEX SIG 1967 sDNA (Cologuard) 1967 COLONOSCOPY 10/24/1977 COLORECTAL CANCER SCREENING 10/24/1977 HIV SCREENING 10/24/1982 HEPATITIS C SCREENING 10/24/1985 HEPATITIS B VACCINE (1 of 3 - 19+ 3-dose series) 10/24/1986 LIPID 2007 YEARLY PREVENTIVE VISIT 10/27/2010 10/27/2009 PNEUMOCOCCAL VACCINE 50+ YEARS (1 of 1 - PCV) 10/24/2017 ZOSTER VACCINE (1 of 2) 10/24/2017 COVID-19 VACCINE ( - season) 2023 01/26/2022, 01/15/2021, 06/20/2020, Additional history exists PHQ-2 (once per calendar year) 2024 DTAP/TDAP/TD VACCINE (2 - Td or Tdap) 03/31/2024 03/31/2014 INFLUENZA VACCINE (Season Ended) 2024 02/15/2016 DIABETES SCREENING 05/01/2026 05/02/2023 HPV VACCINE Aged Out No longer eligi ble based on patient's age to complete this topic MENINGITIS VACCINE Aged Out No longer eligible based on patient's age to complete this topic Procedures Procedure Name Priority Date/Time Associated Diagnosis Comments BASIC METABOLIC PANEL STAT 05/02/2023 8:35 PM CDT from Last 3 Months or Most Recently Relevant to Health Maintenance Results * (ABNORMAL) Basic metabolic panel (05/02/2023 8:35 PM CDT) [facility] Sodium 141 135 - 145 mmol/L 05/02/2023 [...] 8:35 PM CDT 05/02/2023 8:41 PM CDT us Vineet Houston DO LAB - BLOOD ORDERABLES F inal Result LABORATORY [facility] [address] Lab (1st floor, no room number) [place] [address], [facility] from Last 3 Months or Most Recently Relevant to Health Maintenance Insurance [employer] OF [place] [facility] Care Teams Safety Analyst Relationship Specialty Start Date End Date Roverto Morley MD [facility] [id number] [place] [address] PCP - General Family Medicine 07/05/22
--- OUTSIDE RECORDS SUMMARY | 2024-08-10 02:19 | XMS_ITS | Data Portability ---
Author Organization [facility], [facility] Address [address] [place] [address] Care Team Providers Care Cookie Padder Name Role Phone [facility] Primary Care Provider Assessment Encounter Date Assessment Date Assessment LastModified by Organization Details LastModified Time 08/29/2023 08/29/2023 Here for blood draw ridge Not available 08/29/2023 09:29:32 12/05/2023 12/05/2023 58M with metastatic prostate cancer= ([id number]/1, [place] 4+5=9, PSA 28.4) s/p RT to primary tumor and LN. Excellent response to treatment, PSA today <0.04, PSMA PET 11/28/23 shows isolated residual activity within the prostate. Moderate hot flashes, some fatigue. Frequency Q3 hrs at night. On ADT with eligard and Abiraterone + Prednisone (started 05/23/23). 1) Prostate cancer - continue ADT + Karishma/Pred. - Eligard 22.5 mg today - f/u 3 months with PSA, next Eligard 2) Hot flashes- tolerable 3) Bone health - 0172-8631 mg Ca and 400-1000 IU Vitamin D daily - hold Xgeva as no active bone disease [email or web address] Not available 12/05/2023 13:08:19 03/05/2024 03/05/2024 58M with metastatic prostate cancer= ([id number]/1, [place] 4+5=9, PSA 28.4) s/p RT to primary tumor and LN. Excellent response to treatment, PSA today <0.04, PSMA PET 11/28/23 shows isolated residual activity within the prostate. Moderate hot flashes, some fatigue. Frequency Q3 hrs at night. On ADT with eligard and Abiraterone + Prednisone (started 05/23/23). 1) Prostate cancer - continue ADT + Karishma/Pred. - Eligard 22.5 mg today - f/u 3 months with PSA, next Eligard 2) Hot flashes- tolerable - declines intervention; also discussed acupuncture 3) Bone health - 7039-6496 mg Ca and 400-1000 IU Vitamin D daily - hold Xgeva as no active bone disease [email or web address] Not available 03/05/2024 12:10:32 06/10/2024 06/10/2024 58M with metastatic prostate cancer= ([id number]/1, [place] 4+5=9, PSA 28.4) s/p RT to primary tumor and LN. Excellent response to treatment, PSA today <0.04, PSMA PET 11/28/23 shows isolated residual activity within the prostate. Moderate hot flashes, some fatigue. Frequency Q3 hrs at night. On ADT with eligard and Abiraterone + Prednisone (started 05/23/23). 1) Prostate cancer - continue ADT + Karishma/Pred - Eligard 22.5 mg today - f/u 3 months with PSA, next Eligard 2) Hot flashes- tolerable - declines intervention; also discussed acupuncture 3) Bone health - 0882-2364 mg Ca and 400-1000 IU Vitamin D daily - hold Xgeva as no active bone disease justyna Not available 06/10/2024 13:24:35 Plan of Treatment Reminders Order Date Submit Date Provider Last Modified By Organization Details Last Modified Time Details Appointments None record ed. Lab PSA, serum or plasma 2024 025 justyna [facility], [address], [place], [address], 13:21:35 CMP, serum or plasma 2024 025 [facility], [address], [address], [place], [address], 05/30/202 5 17:07:07 PSA, serum or plasma 2024 025 justyna [facility], [address], [place], [address], 5 12:06:52 CMP, serum or plasma 2024 025 [facility], [address], [address], [place], [address], 5 17:47:25 PSA, serum or plasma 2023 024 justyna [facility], [address], [place], [address], 4 13:08:20 testos terone , total, serum 2023 024 [facility], [address], [address], [place], [address], 4 18:05:36 CMP, serum or plasma 2023 024 [facility], [address] [facility], [address], [place], [address], 4 18:05:38 Referral None record ed. Procedures None record ed. Surgeries None record ed. Imaging None record ed. Medication Orders Eligar d 22.5 mg (3 month) subcut aneous syring e 2024 025 dominic [id number], [address], [place], [address], 5 10:26:35 Eligar d 22.5 mg (3 month) subcut aneous syring e 2024 025 justyna [id number], [address], [place], [address], 5 12:16:57 Eligar d 22.5 mg (3 month) subcut aneous syring e 2023 Samia jansen [id number], [address], [place], [address], 13:15:14 Patient TargetsNo targets recorded. Patient Instructions Encounter Date Encounter Id Patient Instructions Last Modified By Organization Details Last Modified Time 08/29/2023 [id number] Pt to follow up with Dr. Ilda sabillon Not available 08/29/2023 09:29:48 Reason for Referral None Reported. Results Created Date Observation Date Name Description Value Unit Range Abnormal Flag Note LastModifiedBy Organization Detail LastModifiedTime 08/29/1908/29/2023 TESTO STERO NE testosterone <10 NG/dL 175-78 1 This lab resul t is being provi ded to you and your provi haseeb at the same time in compl iance with the Centu ry Cures Act. Your provi haseeb may not have had time to revie w and make recom menda tions based on the resul t. Pleas e allow up to one week for provi haseeb revie w. Not Available [facility] [address] [facility] [address], [place], [address], 08/29/2023 18:05:36 08/29/19 24 08/29/2023 COMPR EHENS DEEP METAB OLIC PANEL ALT-olympus 32.0 IU/L 10.0-4 0.0 Not Available [facility] [address] [facility] [address], [place], [address], 08/29/2023 18:05:38 08/29/19 24 08/29/2023 COMPR EHENS DEEP METAB OLIC PANEL AST-olympus 16.2 IU/L 10.0-4 2.0 Not Available [facility] [address] [facility] [address], [place], [address], 08/29/2023 18:05:38 08/29/19 24 08/29/2023 COMPR EHENS DEEP METAB OLIC PANEL ALP-olympus 68.0 [IU]/ L 24.0-1 06.0 Alberto ferraro note new refer ence range as of 2014 Not Available [facility] [address] [facility] [address], [place], [address], 08/29/2023 18:05:38 08/29/19 24 08/29/2023 COMPR EHENS DEEP METAB OLIC PANEL albumin-olym pus 4.2 g/dL 3.5-5. 0 This lab resul t is being provi ded to you and your provi haseeb at the same time in compl iance with the Centu ry Care Act of 2015. Your provi haseeb may not have had time to revie w and make recom menda tions based on the resul t. Alberto ferraro allow up to one week for provi haseeb revie w. Not Available [facility] [address] [facility] [address], [place], [address], 08/29/2023 18:05:38 08/29/19 24 08/29/2023 COMPR EHENS DEEP METAB OLIC PANEL T bilirubin-ol ympus 0.4 mg/dL 0.2-1. 0 Not Available [facility] [address] [facility] [address], [place], [address], 08/29/2023 18:05:38 08/29/19 24 08/29/2023 COMPR EHENS DEEP METAB OLIC PANEL D bilirubin-ol ympus 0.1 mg/dL 0.0-0. 2 Not Available [facility] [address] [facility] [address], [place], [address], 08/29/2023 18:05:38 08/29/19 24 08/29/2023 COMPR EHENS DEEP METAB OLIC PANEL T protein-olym pus 6.6 g/dL 6.5-8. 1 This lab resul t is being provi ded to you and your provi haseeb at the same time in compl iance with the Centu ry Care Act of 2015. Your provi haseeb may not have had time to revie w and make recom menda tions based on the resul t. Pleas e allow up to one week for provi haseeb revie w. Not Available [facility] [address] [facility] [address], [place], [address], 08/29/2023 18:05:38 08/29/19 24 08/29/2023 COMPR EHENS DEEP METAB OLIC PANEL potassium 4.1 mmol/ L 3.6-5. 0 Not Available [facility] [address] [facility] [address], [place], [address], 08/29/2023 18:05:38 08/29/19 24 08/29/2023 COMPR EHENS DEEP METAB OLIC PANEL Na 141.0 mmol/ L 135.0- 145.0 Erik hernandez n facto tushar ferraro 2015. You may notic e a 1-2 mmol/ L incre ase in patie nt Na resul t. Not Available [facility] [address] [facility] [address], [place], [address], 08/29/2023 18:05:38 08/29/19 24 08/29/2023 COMPR EHENS DEEP METAB OLIC PANEL chloride 106.0 mmol/ L 101.0- 111.0 Not Available [facility] [address] [facility] [address], [place], [address], 08/29/2023 18:05:38 08/29/19 24 08/29/2023 COMPR EHENS DEEP METAB OLIC PANEL CO2 25.0 mmol/ L 21.0-3 1.0 Not Available [facility] [address] [facility] [address], [place], [address], 08/29/2023 18:05:38 08/29/19 24 08/29/2023 COMPR EHENS DEEP METAB OLIC PANEL aniongap 10.00 0.00-1 6.00 Not Available [facility] [address] [facility] [address], [place], [address], 08/29/2023 18:05:38 08/29/19 24 08/29/2023 COMPR EHENS DEEP METAB OLIC PANEL glu 117.20 mg/dL 70.00- 105.00 high Not Available [facility] [address] [facility] [address], [place], [address], 08/29/2023 18:05:38 08/29/19 24 08/29/2023 COMPR EHENS DEEP METAB OLIC PANEL Ca 9.3 mg/dL 8.4-10 .2 Not Available [facility] [address] [facility] [address], [place], [address], 08/29/2023 18:05:38 08/29/19 24 08/29/2023 COMPR EHENS DEEP METAB OLIC PANEL BUN 15.0 mg/dL 7.0-18 .0 Not Available [facility] [address] [facility] [address], [place], [address], 08/29/2023 18:05:38 08/29/19 24 08/29/2023 COMPR EHENS DEEP METAB OLIC PANEL BUN/creat 15.0 ratio 9.0-20 .0 Not Available [facility] [address] [facility] [address], [place], [address], 08/29/2023 18:05:38 08/29/19 24 08/29/2023 COMPR EHENS DEEP METAB OLIC PANEL creatinine 1.0 mg/dL 0.6-1. 3 Not Available [facility] [address] [facility] [address], [place], [address], 08/29/2023 18:05:38 08/29/19 24 08/29/2023 COMPR EHENS DEEP METAB OLIC PANEL eGFR >60 mL/mi n_per _1.73 90-120 If Afric an Ameri can multi ply by 1.210 This lab resul t is being provi ded to you and your provi haseeb at the same time in compl iance with the Centu ry Cures Act. Your provi haseeb may not have had time to revie w and make recom menda tions based on the resul t. Alberto ferraro allow up to one week for provi haseeb revie w. Not Available [facility] [address] [place] [address], [place], [address], 08/29/2023 18:05:38 08/29/19 24 08/29/2023 PSA, serum or plasm a PSA <0.04 ng/ml 0-4.0 NG/mL Not Available [facility] [address], [place], [address], 08/28/2023 08:12:14 12/05/1912/05/2023 PSA, serum or plasm a PSA <0.04 ng/mL 0-4.0 NG/mL Not Available [facility] [address], [place], [address], 12/01/2023 15:31:54 03/05/19 25 03/05/2024 COMPR EHENS DEEP METAB OLIC PANEL ALT-olympus 23.0 IU/L 10.0-4 0.0 Not Available [facility] [address] [place] [address], [place], [address], 03/05/2024 17:47:25 03/05/19 25 03/05/2024 COMPR EHENS DEEP METAB OLIC PANEL AST-olympus 15.1 IU/L 10.0-4 2.0 Not Available [facility] [address] [place] [address] [address], [place], [address], 03/05/2024 17:47:25 03/05/19 25 03/05/2024 COMPR EHENS DEEP METAB OLIC PANEL ALP-olympus 72.0 [IU]/ L 24.0-1 06.0 Alberto ferraro note new refer ence range as of 2014 Not Available [facility] [address] [place] [address], [place], [address], 03/05/2024 17:47:25 03/05/1903/05/2024 COMPR EHENS DEEP METAB OLIC PANEL albumin-olym pus 4.4 g/dL 3.5-5. 0 This lab resul t is being provi ded to you and your provi haseeb at the same time in [facility] with the Centu ry Care Act of 2015. Your provi haseeb may not have had time to revie w and make recom menda tions based on the resul t. Alberto e allow up to one week for provi haseeb revie w. Not Available [facility] [address] [facility] [address], [place], [address], 03/05/2024 17:47:25 03/05/1903/05/2024 COMPR EHENS DEEP METAB OLIC PANEL T bilirubin-ol ympus 0.5 mg/dL 0.2-1. 0 Not Available [facility] [address] [facility] [address], [place], [address], 03/05/2024 17:47:25 03/05/1903/05/2024 COMPR EHENS DEEP METAB OLIC PANEL D bilirubin-ol ympus 0.1 mg/dL 0.0-0. 2 Not Available [facility] [address] [facility] [address], [place], [address], 03/05/2024 17:47:25 03/05/1903/05/2024 COMPR EHENS DEEP METAB OLIC PANEL T protein-olym pus 6.6 g/dL 6.5-8. 1 This lab resul t is being provi ded to you and your provi haseeb at the same time in [facility] with the Centu ry Care Act 2015. Your provi haseeb may not have had time to revie w and make recom menda tions based on the resul t. Alberto e allow up to one week for provi haseeb revie w. Not Available [facility] [address] [facility] [address], [place], [address], 03/05/2024 17:47:25 03/05/1903/05/2024 COMPR EHENS DEEP METAB OLIC PANEL potassium 3.9 mmol/ L 3.6-5. 0 Not Available [facility] [address] [facility] [address], [place], [address], 03/05/2024 17:47:25 03/05/19 25 03/05/2024 COMPR EHENS DEEP METAB OLIC PANEL Na 143.0 mmol/ L 135.0- 145.0 Corre latio n facto tushar ferraro 2015. You may notic e a 1-2 mmol/ L incre ase in patie nt Na resul t. Not Available [facility] [address] [facility] [address], [place], [address], 03/05/2024 17:47:25 03/05/19 25 03/05/2024 COMPR EHENS DEEP METAB OLIC PANEL chloride 104.0 mmol/ L 101.0- 111.0 Not Available [facility] [address] [facility] [address], [place], [address], 03/05/2024 17:47:25 03/05/19 25 03/05/2024 COMPR EHENS DEEP METAB OLIC PANEL CO2 32.0 mmol/ L 21.0-3 1.0 high Not Available [facility] [address] [facility] [address], [place], [address], 03/05/2024 17:47:25 03/05/19 25 03/05/2024 COMPR EHENS DEEP METAB OLIC PANEL aniongap 7.00 0.00-1 6.00 Not Available [facility] [address] [facility] [address], [place], [address], 03/05/2024 17:47:25 03/05/19 25 03/05/2024 COMPR EHENS DEEP METAB OLIC PANEL glu 63.60 mg/dL 70.00- 105.00 low Not Available [facility] [address] [facility] [address], [place], [address], 03/05/2024 17:47:25 03/05/19 25 03/05/2024 COMPR EHENS DEEP METAB OLIC PANEL Ca 9.6 mg/dL 8.4-10 .2 Not Available [facility] [address] [facility] [address], [place], [address], 03/05/2024 17:47:25 03/05/19 25 03/05/2024 COMPR EHENS DEEP METAB OLIC PANEL BUN 11.0 mg/dL 7.0-18 .0 Not Available [facility] [address] [facility] [address], [place], [address], 03/05/2024 17:47:25 03/05/19 25 03/05/2024 COMPR EHENS DEEP METAB OLIC PANEL BUN/creat 11.6 ratio 9.0-20 .0 Not Available [facility] [address] [facility] [address], [place], [address], 03/05/2024 17:47:25 03/05/19 25 03/05/2024 COMPR EHENS DEEP METAB OLIC PANEL creatinine 1.0 mg/dL 0.6-1. 3 Not Available [facility] [address] [facility] [address], [place], [address], 03/05/2024 17:47:25 03/05/19 25 03/05/2024 COMPR EHENS DEEP METAB OLIC PANEL eGFR >60 mL/mi n_per _1.73 90-120 If Afric an Ameri can multi ply by 1.210 This lab resul t is being provi ded to you and your provi haseeb at the same time in compl iance with the 21st Centu ry Cures Act. Your provi haseeb may not have had time to revie w and make recom menda tions based on the resul t. Alberto ferraro allow up to one week for provi haseeb revie w. Not Available [facility] [address] [facility] [address], [place], [address], 03/05/2024 17:47:25 03/05/19 25 03/05/2024 PSA, serum or plasm a PSA <0.04 ng/ml 0-4.0 NG/mL Not Available [facility] [address], [place], [address], 02/29/2024 18:34:33 06/11/19 25 06/10/2024 PSA, serum or plasm a PSA <0.04n g/ml 0-4.0 NG/mL Not Available [facility] [address], [place], [address], 06/08/2024 13:40:44 11/28/19 24 11/28/2023 PET-C T, skull base to mid-t high scan EXAM: PET CT PROSTA TE PSMA LOCATI ON: [facility] [place] DATE: 2023 INDICA TION: Subseq uent treatm ent planni ng and restag ing for malign ant neopla sm of the prosta te status post radiat ion therap y comple aleksandr in r 2022, curren tly receiv ing hormon al therap y with elevat ed PSA compat ible with bioche mical recurr ence. COMPAR HENRI: PSMA PET/CT dated 023. TECHNI QUE: 60 minute s post intrav enous admini strati on of 9.8 mCi F-18 Pifluf olasta t, PET imagin g was perfor med from the skull vertex to mid thighs utiliz ing attenu ation correc tion with concur rent axial CT and PET/CT image fusion . Dose reduct ion techni ques were used. FINDIN GS: Isolat ed residu al radiot racer activi ty within the prosta te gland (Max SUV 5.6, previo usly 9.6) sugges ting marked interv al respon se to therap y. The remain ing radiot racer distri bution is physio logic from the skull vertex to mid thigh, specif ically the previo usly seen radiot racer positi ve diseas e involv ing the right unit aide al iliac lymph node and right iliac bone lesion have resolv ed. No acute intrac ranial abnorm ality. Mild alvarez ry artery calciu m. The lungs are clear. Anteri or abdomi nal wall inject ion granul omas. Sigmoi d divert iculos is. Non-ra diotra cer positi ve lesion in the right iliac bone sugges ting treate d/quie scent diseas e. Multil evel degene rative change s of the spine. IMPRES MARYA: Marked interv al respon se to therap y with isolat ed residu al radiot racer activi ty within the prosta te gland. This report was electr onical ly interp reted by: DR. TARAH LINARES [id number] M&D ANTIQUES & CON[facility]IGNMENTS[facility] [address], [place], [address], 12/26/2023 11:24:09 Result Notes Documentation Provider Name and Address Organization Details Recorded Time Pet-ct, Skull Base To Mid-thigh Scan : EXAM: PET CT PROSTATE PSMA LOCATION: [facility] DATE: 11/28/2023 INDICATION: Subsequent treatment planning and restaging for malignant neoplasm of the prostate status post radiation therapy completed in November 2022, currently receiving hormonal therapy with elevated PSA compatible with biochemical recurrence. COMPARISON: PSMA PET/CT dated 01/14/2023. TECHNIQUE: 60 minutes post intravenous administration of 9.8 mCi F-18 Piflufolastat, PET imaging was performed from the skull vertex to mid thighs utilizing attenuation correction with concurrent axial CT and PET/CT image fusion. Dose reduction techniques were used. FINDINGS: Isolated residual radiotracer activity within the prostate gland (Max SUV 5.6, previously 9.6) suggesting marked interval response to therapy. The remaining radiotracer distribution is physiologic from the skull vertex to mid thigh, specifically the previously seen radiotracer positive disease involving the right external iliac lymph node and right iliac bone lesion have resolved. No acute intracranial abnormality. Mild coronary artery calcium. The lungs are clear. Anterior abdominal wall injection granulomas. Sigmoid diverticulosis. Non-radiotracer positive lesion in the right iliac bone suggesting treated/quiescent disease. Multilevel degenerative changes of the spine. IMPRESSION: Marked interval response to therapy with isolated residual radiotracer activity within the prostate gland. This report was electronically interpreted by: DR. JANKI Barrett, POLO [address] [place] [address],[address], [place], [address], [facility] 12/26/2023 11:24:09 Problems Name Problem SNOMED Code Status Onset Date Resolution Date Notes Provider Name and Address Organization Details Recorded Time Malignant neoplasm of prostate 974404118 Active 2022 Britney Cespedes [facility] 3 14:52:31 Metastatic malignant neoplasm 443426685 Active 2022 Janki lynch MD, PHD [address] [place] [address], [address], [facility] 3 18:06:08 Lower urinary tract symptoms due to benign prostatic hypertrophy 6743271296358 1 Active 2022 Janki lynch MD, PHD [address] [place] [address], [address], [facility] 3 18:06:15 Thyroid nodule 897691864 Active 2023 Janki lynch MD, PHD [address] [place] [address], [address], [facility] 4 17:42:33 Reduced libido 2400080 Active 2023 Janki lynch MD, PHD [address] [place] [address], [address], [facility] 4 11:23:02 Metastatic malignant neoplasm to bone 73483242 Active 2023 JAKE MARTÍNEZ [address], [address], [facility] 4 14:41:38 Male hot flash 8485944048369 00 Active 2023 JAKE MARTÍNEZ [address], [address], [facility] 4 14:41:40 Problem Notes None recorded. Procedures Surgical History Date Name Laterality Status Provider Name and Address Organization Details Recorded Time 5 Keo Jollyanakeye [facility] 06/18/2024 10:24:21 5 COMPLEX VISIT completed Adeola [place] [facility] 06/08/2024 13:40:49 5 REFRIGERATION SERVICE INSPECTOR/blood draw completed Adeola [place] [facility] 06/08/2024 13:40:49 5 COMPLEX VISIT completed Adeola [place] [facility] 02/29/2024 18:34:40 5 REFRIGERATION SERVICE INSPECTOR/blood draw completed Adeola [place] [facility] 02/29/2024 18:34:40 4 COMPLEX VISIT completed Adeola [place] [facility] 12/01/2023 15:31:57 4 REFRIGERATION SERVICE INSPECTOR/blood draw completed Adeola [place] [facility] 12/01/2023 15:33:40 4 COMPLEX VISIT completed Janki Thorne MD, PHD [address] [place] [address], [address], [facility] 08/29/2023 09:04:27 4 REFRIGERATION SERVICE INSPECTOR/blood draw completed Barby Cervantes [facility] 08/29/2023 09:38:08 4 COMPLEX VISIT completed Janki Thorne MD, PHD [address] [place] [address], [address], [facility] 05/23/2023 11:22:40 4 REFRIGERATION SERVICE INSPECTOR/blood draw completed Adeolakristy Montgomeryo [place] [facility] 05/20/2023 21:33:17 4 REFRIGERATION SERVICE INSPECTOR/blood draw completed Emeli Montanez [facility] 02/20/2023 11:09:17 4 COMPLEX VISIT completed Janki Thorne MD, PHD [address] [place] [address],[address], [address], [facility] 02/14/2023 18:41:08 4 REFRIGERATION SERVICE INSPECTOR/blood draw completed Adeola [place] [facility] 02/14/2023 17:04:01 3 REFRIGERATION SERVICE INSPECTOR/blood draw completed [facility] 12/12/2022 16:56:45 3 Keo completed Britney Cespedes [facility] 10/24/2022 09:27:28 3 Firmlalo completed Britney Stevee [facility] 09/23/2022 15:02:16 3 Prostate Biopsy Procedure completed Epi Rudd MD [address] [place] [address],[address], [place], [address], [facility] 06/14/2022 10:32:09 3 Rocephin/Ceft riaxone completed [facility] 06/14/2022 10:13:42 3 Bladder Scan completed [facility] 04/18/2022 12:43:19 3 Blood Draw/REFRIGERATION SERVICE INSPECTOR/PSA RESULTS completed [facility] 04/18/2022 12:35:42 2 Bladder Scan completed Epi Rudd MD [address] [place] [address],[address], [place], [address], [facility] 01/14/2022 11:44:15 procedure on knee completed Epi Rudd MD [address] [place] [address],[facility] [address], [place], [address], [facility] 01/14/2022 11:39:04 Imaging Results None recorded. Procedure Notes None recorded. Medical Equipment None Reported. Allergies Allergen ID Allergen Name Allergen Category Reaction Reaction Severity Criticality Documentation Date Start Date Code Code System Note Provider Name and Address Organization Details Recorded Time 042482 morphine medicatio n Not available Not available Not available 01/14/2022 7052 RxNorm Epi Rudd MD [address] [place] [address],[address], [place], [address], [facility] 2 11:38:04 Medications Name Sig Start Date Stop Date Status Note LastModified by Organization Details LastModified Time vitamin d3 5000iu capsule TAKE 1 CAP ORALLY EVERY DAY NO FURTHER REFILLS UNTIL SEEN IN CLINIC. active Not Available Not Available No t Available metformin 500 mg tablet TAKE 2 TABLETS (1,000 MG) BY MOUTH TWO TIMES A DAY WITH MEALS. active Not Available Not Available No t Available meloxicam 15 mg tablet TAKE 1 TABLET BY MOUTH EVERY DAY 03/05 completed Not Available Not Available Not Available prednisone 5 mg tablet TAKE 1 TABLET BY MOUTH TWICE A DAY 2024 active Not Available Not Available Not Avai lable ceftriaxone 1 gram solution for injection Take [...] Not Available Not Available No t Available amoxicillin 875 mg-potassiu m clavulanate 125 mg tablet TAKE 1 TABLET BY MOUTH TWICE A DAY FOR 7 DAYS WITH FOOD OR MILK 03/05 completed Not Available Not Available Not Available escitalopra m 10 mg tablet TAKE 1/2 TABLET BY MOUTH DJAILY X7 DAYS. AFTER 7 DAYS BEGIN TAKING 1 ORAL TABLET 10 MG ONCE A DAY. active Not Available Not Available No t Available Eligard 22.5 mg (3 month) subcutaneou s syringe Inject 22.5 mg by subcutane ous route. 2024 active Not Available Not Available Not Avai [...] day by oral route, for Prostate cancer. 2024 active Not Available Not Available Not Avai lable Firmagon kit with diluent syringe 120 mg subcutaneou s solution Inject 120 mg by subcutane ous route. 03/05 completed Not Available Not Available Not Available Firmagon kit with diluent syringe 80 mg subcutaneou s solution Inject 80 mg by subcutane ous route. 03/05 completed Not Available Not Available Not Available Saxenda 3 mg/0.5 mL (18 mg/3 mL) [...] and Address Organization Details Last Updated DateTime 03/05/2024 187.96 cm 38.3 kg/m2 144268.53 g Janki alcantar MD, PHD [address], [place], [address], [place] [facility] 03/05/2024 11:25:38 Date Recorded Body height Body mass index (BMI) Body weight Provider Name and Address Organization Details Last Updated DateTime 06/10/2024 187.96 cm 37.7 kg/m2 154116.16 g Janki alcantar MD, PHD [address] [place] [address],[address] [facility] 06/10/2024 12:34:31 Date Recorded Body height Body mass index (BMI) Body weight Provider Name and Address Organization Details Last Updated DateTime 08/29/2023 187.96 cm 39.4 kg/m2 605062.86 g Barby Cervantes [facility] 08/29/2023 09:34:47 Date Recorded Body height Body mass index (BMI) Body weight Provider Name and Address Organization Details Last Updated DateTime 12/05/2023 187.96 cm 38.3 kg/m2 254597.53 g Janki alcantar MD, PHD [address] [place] [address] Urolog 12/05/2023 12:30:58 Social History Question Answer Notes LastModified by Organizat ion Details LastModified Time Tobacco Smoking Status Former Smoker Epi Rudd MD [address] [place] [address] 01/14/2022 11:38:52 What Is Your Level Of Caffeine Consumption? Moderate [email or web address] Information not available 08/29/2023 What Was The Date Of Your Most Recent Tobacco Screening? 06/10/2024 [email or web address] Information not available 06/10/2024 Sex: Unknown Functional Status Question Answer Note LastModified by Organization D etails LastModified Time What is your level of alcohol consumption? None Information not available 01/14/2022 Mental Status None recorded. Family History Relationship Description Onset Age of this Age Resolved Age Notes LastModified by Organization Details LastModified Time Mother Family history of cancer of colon Not available 2021 11:38:38 Medical History Condition Response Other N High Blood Pressure N Kidney Stones N Depression N Sexually Transmitted Infection N Cancer N Bleeding Disorder N Lung Disease N GERD/Acid Reflux N High Cholesterol N Diabetes N Heart Disease N Immunizations Vaccine Type Date Status Note Provider Nam e and Address Organization Details Recorded Time MMR 02/15/2016 completed Nikky perkins [facility] 12/02/2023 14:49:04 COVID-19, mRNA, LNP-S, PF, 100 mcg/0.5mL dose or 50 mcg/0.25mL dose 05/16/2020 completed Nikky [place] null [facility] 12/02/2023 14:49:05 COVID-19, mRNA, LNP-S, PF, 100 mcg/0.5mL dose or 50 mcg/0.25mL dose 06/20/2020 [facility] 14:49:05 COVID-19, mRNA, LNP-S, PF, 100 mcg/0.5mL dose or 50 mcg/0.25mL dose 01/15/2021 [facility]23 14:49:05 Tdap 03/31/2014 [facility] [place] [facility] 12/02/[facility]23 14:49:05 Hep A, adult 02/15/2016 [facility]/02[facility]23 14:49:05 typhoid, ViCPs 02/15/2016 [facility] [place] [facility]23 14:49:05 Influenza, split virus, quadrivalent, PF 02/15/2016 [facility]23 14:49:05 COVID-19, mRNA, LNP-S, bivalent, PF, 30 mcg/0.3 mL dose 01/26/2022 completed Not Available [employer] 12:28:54 Past Encounters Encounter ID Performer Location Encounter Start Date Encounter Closed Date Diagnosis/Indication Diagnosis SNOMED-CT Code Diagnosis ICD10 Code Diagnosis Note [id number] Epi Rudd MD [facility] [address] [place] [address] 01/14/2022 11:22:28 01/16/2022 09:19:19 Slowing of urinary stream 74949903 R39.12 - Obtain UroCuff and PVR - AUA SS: 25 (QOL 5) - PSA: 11.5 ng/mL - SUSAN: will be completed at next visit. - We discussed the natural history of voiding dysfunctio n including primary bladder outlet obstructio n vs detrusor instabilit y vs combinatio n. We discussed the role of medication s in the management of BPH including alpha blockers, 5-BIBI, and anticholin ergics/bet a agonists including their mechanisms of action. Must strai n to pass urine 355906280 R39.16 - As above Urgent vianca altagracia to urinate 36705508 R39.15 - As above Disorder o f ejaculation 725905671 N53.19 - Given the time course with his urination issues, I suspect this may be due to acute prostatiti s Prostatitis 9662977 N41. 9 - Will treat with combinatio n meloxicam and alfuzosin for 3 months- We will plan to repeat PSA and perform SUSAN at that time Prostate s pecific antigen above reference range 126643373 R97.20 - As above [id number] Epi Rudd MD [facility] [address] [place] [address] 04/18/2022 12:30:24 04/22/2022 11:34:10 Slowing of urinary stream 81240449 R39.12 - Obtain UroCuff - PVR 0 mL - AUA SS: 25 (QOL 5) - PSA: 11.5 ng/mL --> 28.4 ng/mL - We discussed the natural history of voiding dysfunctio n including primary bladder outlet obstructio n vs detrusor instabilit y vs combinatio n. We discussed the role of medication s in the management of BPH including alpha blockers, 5-BIBI, and anticholin ergics/bet a agonists including their mechanisms of action. Must strai n to pass urine 191607677 R39.16 - As above Urgent vianca altagracia to urinate 23190685 R39.15 - As above Disorder o f ejaculation 509260105 N53.19 - Given the time course with his urination issues, I suspect this may be due to acute prostatiti s Prostatitis 0941616 N41. 9 - Will treat with antibiotic Prostate s pecific antigen above reference range 112835561 R97.20 - PSA even further elevated today. May still represent prostatiti s- Will obtain MR Prostate [id number] MD [facility] [address] [place] [address] 06/14/2022 09:56:14 06/20/2022 16:26:42 Slowing of urinary stream 55818377 R39.12 - Obtain UroCuff - PVR 0 mL - AUA SS: 25 (QOL 5) - PSA: 11.5 ng/mL --> 28.4 ng/mL - We discussed the natural history of voiding dysfunctio n including primary bladder outlet obstructio n vs detrusor instabilit y vs combinatio n. We discussed the role of medication s in the management of BPH including alpha blockers, 5-BIBI, and anticholin ergics/bet a agonists including their mechanisms of action. Must strai n to pass urine 312717184 R39.16 - As above Urgent vianca altagracia to urinate 11657075 R39.15 - As above Disorder o f ejaculation 132408988 N53.19 - Given the time course with his urination issues, I suspect this may be due to acute prostatiti s Prostate s pecific antigen above reference range 981220369 R97.20 - Now s/p TRUS biopsy- MRI shows 44 cc gland, no focal lesions- Phone visit in 2 weeks for pathology discussion - We reviewed the limitation s of this including under sampling which may lead to under diagnosis. We also reviewed the risks most notably bleeding to a degree enough to require interventi on (1-2.5%) and infection which may result in hospitaliz ation (1-3%). We also discussed expected after effects of biopsy including temporary hematuria, blood per rectum, and hematosper dimitrios which are considered normal after this procedure. [id number] MD Dave [facility] [address] [place] [address] 06/19/2022 10:57:12 06/24/2022 15:59:39 Slowing of urinary stream 76867509 R39.12 - Obtain UroCuff - PVR 0 mL - AUA SS: 25 (QOL 5) - PSA: 11.5 ng/mL --> 28.4 ng/mL - We discussed the natural history of voiding dysfunctio n including primary bladder outlet obstructio n vs detrusor instabilit y vs combinatio n. We discussed the role of medication s in the management of BPH including alpha blockers, 5-BIBI, and anticholin ergics/bet a agonists including their mechanisms of action. Must strai n to pass urine 756446717 R39.16 - As above Urgent vianca altagracia to urinate 11158231 R39.15 - As above Disorder o f ejaculation 935817886 N53.19 - Given the time course with his urination issues, I suspect this may be due to acute prostatiti s Prostate s pecific antigen above reference range 094351766 R97.20 - Now s/p TRUS biopsy- MRI shows 44 cc gland, no focal lesions- Phone visit in 2 weeks for pathology discussion - We reviewed the limitation s of this including under sampling which may lead to under diagnosis. We also reviewed the risks most notably bleeding to a degree enough to require interventi on (1-2.5%) and infection which may result in hospitaliz ation (1-3%). We also discussed expected after effects of biopsy including temporary hematuria, blood per rectum, and hematosper dimitrios which are considered normal after this procedure. Malignant neoplasm of prostate 746863167 C61 - High risk on biopsy- staging work up [id number] MD [facility] [address] [place] [address] 08/23/2022 08:49:54 08/30/2022 08:49:35 Malignant neoplasm of prostate 778446744 C[address] Rudd pt will RTC in one month for another Firmagon injection. Chrissy Luque [place] [id number] MD [facility] [address] [place] [address] 09/23/2022 13:54:12 09/27/2022 09:34:25 Malignant neoplasm of prostate 666900598 C[address] Rudd pt will RTC in one month for another Firmagon injection. Chrissy Luque MA 08/23/22 [id number] MD [facility] [address] [place] [address] 10/24/2022 08:48:27 11/01/2022 08:59:18 Malignant neoplasm of prostate 544843745 C61 [id number] Janki watson MD, PHD [facility] [place] [address] 12/12/2022 16:45:29 12/25/2022 13:24:18 Malignant neoplasm of prostate 109682840 C61 Metastatic malignant neoplasm 062153520 C79.9 Lower urin andrey tract symptoms due to benign prostatic hypertrophy 4259960627 9101 N40.1 [id number] Janki watson MD, PHD [facility] [address] [place] [address] 02/14/2023 16:58:11 02/24/2023 13:50:13 Malignant neoplasm of prostate 050268084 C61 Metastatic malignant neoplasm 869463331 C79.9 Lower urin andrey tract symptoms due to benign prostatic hypertrophy 9061727107 9101 N40.1 Thyroid nodule 017975496 E04.1 [id number] Janki watson MD, PHD [facility] [address] [place] [address] 02/20/2023 10:45:50 02/28/2023 03:58:01 Malignant neoplasm of prostate 885728857 C61 [id number] Janki watson MD, PHD [facility] [address] [place] [address] 05/23/2023 09:57:22 05/26/2023 11:23:54 Malignant neoplasm of prostate 498122720 C61 Metastatic malignant neoplasm 842290823 C79.9 Lower urin andrey tract symptoms due to benign prostatic hypertrophy 9944115494 9101 N40.1 Thyroid nodule 414991138 E04.1 Reduced libido 0117740 R 68.82 [id number] JAKE MARTÍNEZ, [facility] [address] [place] [address] 06/19/2023 14:06:14 06/20/2023 14:25:37 Malignant neoplasm of prostate 997555231 C61 -Continue ADT with eligard and Abirateron e + Prednisone -Eligard due 08/22/23 or after Metastatic malignant neoplasm to bone 38609297 C79.51 - Currently taking calcium and vitamin D supplement s- consider Xgeva next visit Male hot flash 627136859 1 37093 R23.2 -Bothersom e hot flashes--k nows medication options are available if/when he needs it.-Recomm ended acupunctur e at [facility] or other [facility] medicine clinic-We discussed how an interrupti on in sleep caused by hot flashes could cause fatigue during daytime. Darien will try to pay attention to a sleep patterns to see if this is impacting his daytime energy. [id number] Janki watson MD, PHD [facility] [address] [place] [address] 08/29/2023 09:13:33 09/08/2023 11:15:57 Malignant neoplasm of prostate 916681199 C61 Metastatic malignant neoplasm to bone 67613271 C79.51 Male hot flash 132651001 1 R23.2 [id number] Janki watson MD, PHD [facility] [address] [place] [address] 08/29/2023 09:13:33 09/09/2023 03:58:40 Malignant neoplasm of prostate 742200555 C61 [id number] Janki watson MD, PHD [facility] [address] [place] [address] 12/05/2023 11:59:15 12/10/2023 10:00:42 Malignant neoplasm of prostate 054006297 C61 Metastatic malignant neoplasm to bone 02364067 C79.51 Male hot flash 519309749 1 R23.2 [id number] Janki watson MD, PHD [facility] [address] [place] [address] 03/05/2024 11:02:58 03/12/2024 12:48:30 Malignant neoplasm of prostate 651371588 C61 Metastatic malignant neoplasm to bone 37235429 C79.51 Male hot flash 409529671 1 R23.2 [id number] Janki watson MD, PHD [place] [address] [place] [address] 06/10/2024 12:26:29 06/23/2024 09:18:54 Malignant neoplasm of prostate 934764946 C61 Metastatic malignant neoplasm to bone 03734949 C79.51 Male hot flash 438384913 1 R23.2 [id number] Janki watson MD, PHD [address] [place] [address] 06/18/2024 09:51:42 06/24/2024 18:59:20 Malignant neoplasm of prostate 454145873 C61 Health Concerns Section Related Observation LastModified by Organization Detai ls LastModified Time None Recorded Concern Status LastModified by Organization Details LastModified Time None Recorded Advance Directives Directive None Recorded Payers Insurance Date Sequence Insurance Name Policy Number Policy Hernandez Covered Member ID Hernandez Member ID Guarantor Name 06/24/2024 1 [place] [id number] [facility] [id number] [facility] 06/18/[address] [facility] [id number] [facility] [id number] [facility] 06/18/2024 1 [facility] [id number] [facility] [id number] [facility] Notes Date Note Type Note Provider Name and Address Organization Details Recorded Time 4 text/html 57M with metastatic prostate cancer= (uK3J1R9/1, Robert 4+5=9, PSA 28.4) Completed RT to prostate, pelvic LN and pelvic bony lesions (11/21/22) with Dr Quiñones. On ADT with Eligard and Abiraterone + Prednisone ED: low libido; not interested in PDE5i, also low ejaculate ADT: moderate hot flashes, moderate fatigue, concerned about weight gainGU: alfuzosin and tamsulosin; + urgency, occasional difficulty emptyingGI: denies Imaging:CT A/P (07/09/22): right pelvic LN up to 4.6 cm, left LN up to 1.1 cm, small sclerotic lesion right iliac boneBS (07/09/22): no metsPSMA-PET (01/14/23): uptake in prostate, right ext iliac LN and right iliac bone; also possible paraaortic nodes Genetics:Foundation one (01/22/23): MS- equivocal, TMB 2 Muts/Mb, no reportable genomic alterations RT 10/09/22-11/21/22: 7000 cGy (Nuria) ADT start: 08/23/22; FirmagonLast ADT: 05/23/23: Eligard 22.5 mgAnti-androgen: Karishma + Pred start 05/23/23 Prostate biopsy (06/14/22): 01/21 cores up to Gl 4+5=9 PSA Tjpaika00/18/22: 11.53/11/02: 28.411/04/04: 0.531/07/03: 0.174: <0.047/: <0.04 PMH: obesity, AFib (08/2023)PSH: no abd surgery 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 On ADT with Eligard and Abiraterone + Prednisone ED: low libido; not interested in PDE5i, also low ejaculate ADT: moderate hot flashes, moderate fatigue, concerned about weight gainGU: alfuzosin and tamsulosin; + urgency, occasional difficulty emptyingGI: denies Imaging:CT A/P (07/09/22): right pelvic LN up to 4.6 cm, left LN up to 1.1 cm, small sclerotic lesion right iliac boneBS (07/09/22): no metsPSMA-PET (01/14/23): uptake in prostate, right ext iliac LN and right iliac bone; also possible paraaortic nodesPSMA-PET (11/28/23): Isolated residual activity within the prostate. Marked interval response to therapy. 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 On ADT with Eligard and Abiraterone + Prednisone ED: low libido; not interested in PDE5i, also low ejaculate ADT: moderate hot flashes, moderate fatigue, concerned about weight gainGU: alfuzosin and tamsulosin; + urgency, occasional difficulty emptyingGI: denies Imaging:CT A/P (07/09/22): right pelvic LN up to 4.6 cm, left LN up to 1.1 cm, small sclerotic lesion right iliac boneBS (07/09/22): no metsPSMA-PET (01/14/23): uptake in prostate, right ext iliac LN and right iliac bone; also possible paraaortic nodesPSMA-PET (11/28/23): Isolated residual activity within the prostate. Marked interval response to therapy. 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 No significant changes. Completed RT to prostate, pelvic LN and pelvic bony lesions (11/21/22) with Dr Quiñones. On ADT with Eligard and Abiraterone + Prednisone ED: low libido; not interested in PDE5i, also low ejaculate ADT: moderate hot flashes, moderate fatigue, concerned about weight gainGU: alfuzosin and tamsulosin; + urgency, occasional difficulty emptyingGI: denies Imaging:CT A/P (07/09/22): right pelvic LN up to 4.6 cm, left LN up to 1.1 cm, small sclerotic lesion right iliac boneBS (07/09/22): no metsPSMA-PET (01/14/23): uptake in prostate, right ext iliac LN and right iliac bone; also possible paraaortic nodesPSMA-PET (11/28/23): Isolated residual activity within the prostate. Marked interval response to therapy. 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 Britney perkins, [facility] 06/18/2024 15:24:19
--- OUTSIDE RECORDS SUMMARY | 2024-08-10 02:19 | XMS_ITS | Clinical Summary ---
Author Organization [employer] Address [address] [place] [id number] Care Team Providers Care Wet Mix Operator Name Role Phone Roverto Morley MD Primary Care Provider [phone] Encounters Date Type Department Care Team Description 06/18/2024 Orders Only [facility] Scanner 1 scan: (1-Ord) [facility], ELIKRISTEND INJECTION, 06/18/2024 from Last 3 Months Social History Tobacco Use Types Packs/Day Years Used Date Smoking Tobacco: Never Assessed Sex and Gender Information Value Date Recorded Sex Assigned at Not on file Legal Sex Male 8:43 PM CDT Gender Identity Not on file Sexual Orientation Not on file Plan of Treatment Health Maintenance Due Date Last Done Comments Tdap 10/24/1978 Depression screening for age 12+ 1979 HIV for age 15-65 10/24/1982 BMI (ht and wt on same day) for age 18+ 10/24/1985 Hepatitis C screening for ag e 18-79 10/24/1985 Hepatitis B series for 19+ ( 1 of 3 - 19+ 3-dose series) 10/24/1986 Pneumococcal series for age 50+ (1 of 2 - PCV) 10/24/1986 Tetanus booster 1987 Colonoscopy through age 75 10/24/2012 Lipids for age 45-75 10/24/2012 Zoster (shingles) series for age 50+ (1 of 2) 10/24/2017 COVID-19 vaccine series ( season) 2023 01/26/2022, 01/15/2021, 06/20/2020, Additional history exists Influenza Vaccine (Season Ended) 2024 Procedures Procedure Name Priority Date/Time Associated Diagnosis Comments SCAN-OPERATIVE/PROC EDURE REPORT 06/18/2024 12:00 AM CDT from Last 3 Months Results * SCAN-OPERATIVE/PROCEDURE REPORT (06/18/2024 12:00 AM CDT) us Scanner OTHER Final Result from Last 3 Months Insurance [employer] Care Teams Wet Mix Operator Relationship Specialty Start Date End Date Roverto Morley MD [id number] [place] [address] PCP - General Family Practice 09/19/23
--- OUTSIDE RECORDS SUMMARY | 2024-08-10 02:20 | XMS_ITS | Encounter Summary ---
Author Organization [employer] Address [address] [place] [address] Care Team Providers Care Emergency Management Specialist Name Role Phone Clinician, Not Found MD Primary Care Provider Un available Reason for Referral * Medication Prior Authorization - Closed Specialty Diagnoses / Procedures Referred By Dyana hadley Referred To Contact Diagnoses Class 3 severe obesity due to excess calories with serious comorbidity and body mass index (BMI) of 40.0 to 44.9 [place] [address] [place] [address] Phone: tel: fax: Referral ID Status Reason Start Date Expiration Date Visits Re quested Visits Authorized [id number] Closed 1 1 Reason for Visit * Reason Comments Refill Wegovy 2.4mg Encounter Details Date Type Department Care Team (Late st Contact Info) Description 06/17/2024 Refill [facility] [address] [place], [place] [phone] Nima Vizcaino MD [facility] [place], [place] [phone] Refill (Wegovy 2.4mg ) Social History Tobacco Use Types Packs/Day Years [...] 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 documented in this encounter Plan of Treatment Upcoming Encounters Date Type Department Care Team (Late st Contact Info) Description 09/02/2024 9:00 AM CDT Telemedicine [facility] [address] [place] [address] Nima Vizcaino MD [address] [place], [place] [phone] documented as of this encounter Visit Diagnoses Diagnosis Class 3 severe obesity due to excess calories with serious comorbidity and body mass index (BMI) of 40.0 to 44.9 in adult documented in this encounter Care Teams Emergency Management Specialist Relationship Specialty Start Date End Date Clinician, Not Found, [place] [address] PCP - General 10/12/15 documented as of this encounter
--- OUTSIDE RECORDS SUMMARY | 2024-08-10 02:20 | XMS_ITS | Clinical Summary ---
Author Organization [facility] Address [address] [place] [address] Care Team Providers Care Contact Clerk Name Role Phone Clinician, Not Found MD Primary Care Provider Un available Source Comments You are receiving this document as you are listed as the primary care provider,follow-up provider, or the patient has been referred to you for consultation.This is in compliance with the Medicare and[facility] EHR Incentive Program,which states Providers who transition their patient to another setting of careor provider of care or refers their patient to another provider of care shouldprovide summary care record for each transition of care or referral. [facility] Allergies Active Allergy Reactions Criticality Noted Date Comments Morphine Other, see comments High 11/27/2021 itching Fumaric Acid Itching 10/27/2009 Medications MULTIPLE VITAMIN OR Active cholecalciferol (VITAMIND3) 50 [...] injection Inject 30 mg subcutaneously once. Active metFORMIN (GLUCOPHAGE) 500 MG tabletIndication s:Class 3 severe obesity due to excess calories with serious comorbidity and body mass index (BMI) of 40.0 to 44.9 in adult Take 2 Tablets (1,000 mg) by mouth two times a day with meals. 360 Tablet 3 03/04/19 25 Active semaglutide-ariannag ht management (WEGOVY) 2.4 MG/0.75ML pen injectionIndicat ions:Class 3 severe obesity due to excess calories with serious comorbidity and body mass index (BMI) of 40.0 to 44.9 in adult INJECT 0.75 ML (2.4 MG) SUBCUTANEOUSLY ONCE A WEEK. 9 mL 1 06/25/19 25 Active Active Problems Problem Noted Date Diagnosed Date Vitamin D deficiency 05/09/2022 Prediabetes 05/09/2022 Class 3 severe obesity with serious comorbidity and body mass index (BMI) of 40.0 to 44.9 in adult 12/15/2021 Overview (03/04/2024): Weight Center starting BMI: 42.59 Brain concussion 05/09/2016 Overview (05/09/2016): Multiple while playing football between ages 12-30; too many to count according to patient ASHLEY (obstructive sleep apnea) 03/31/2014 Overview (02/15/2016): CPAP DJD (degenerative joint disease) of knee 010 Elevated blood pressure read ing without diagnosis of hypertension 10/27/2009 Keloid of skin 10/27/2009 Encounters Date Type Department Care Team Description 06/22/2024 11:00 AM CDT E-Visit [facility] [address] [place] [address] Nima Vizcaino MD Chief Comp: Prior Authorization For Medication 06/17/2024 Refill [facility] [address] [place] [address] Nima Vizcaino MD Refill (Wegovy 2.4mg ) from Last 3 Months Immunizations Immunization Administration Dates Next Due Chicken Pox - History of Illness 11/24/1978 HepA Adult (19+ yrs) 02/15/2016 Influenza IIV4 (Quadrivalent) 0.5mL (35443) 06/2016 MMR 02/15/2016 Tdap 03/31/2014 Typhoid (Typhim [...] 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 Not on file Not on file Last Filed Vital Signs Vital Sign Reading Time Taken Comments Blood Pressure 136/76 10/01/2023 8:05 AM CDT Pulse 83 10/01/2023 8:05 AM CDT Temperature 37.1 C (98.8 F) 10/01/2023 8:05 AM CDT Respiratory Rate 18 10/01/2023 8:05 AM CDT Oxygen Saturation 95% 10/01/2023 8:05 AM CDT Inhaled Oxygen Concentration - - Weight 131.5 kg (290 lb) 03/04/2024 7:19 AM [employer]PERINT[employer] Height 190.5 cm (6' 3) 03/04/2024 7:19 AM [employer]INT[employer] Body Mass Index 36.25 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 [place] [address] Nima Vizcaino MD [address] [place] [address] Health Maintenance Due Date Last Done Comments Hep C Screening (Preventive Services) 1965 Prediabetes: HGBA1C 1967 HIV Screening (Preventive Services) 1983 HepB Vaccine (1) 10/24/1986 Adult Preventive Visit 10/27/2010 10/27/2009 PSA Screening Discussion 10/27/2010 10/27/2009 FIT Colon Cancer Screening 2011 Cholesterol 10/27/2014 10/27/2009 HepA Vaccine (2 of 2 - Risk 2-dose series) 08/14/2016 02/15/2016 Pneumococcal Vaccine 50+ Yrs (1 of 1 - PCV) 10/24/2017 Zoster/Shingles Vaccine (1 of 2) 10/24/2017 COVID-19 Vaccine (5 - season) 2023 01/26/2022, 01/15/2021, 06/20/2020, Additional history exists DTaP/Tdap/Td Vaccine (2 - Tdap) 03/31/2024 03/31/2014 Influenza Vaccine (Season Ended) 2024 02/15/2016 Hib Vaccine Aged Out No longer eligi ble based on patient's age to complete this topic IPV (Polio) Vaccine Aged Out No longe r eligible based on patient's age to complete this topic MCV4 Vaccine Aged Out No longer eligi ble based on patient's age to complete this topic Meningococcal B Vaccine Aged Out No l onger eligible based [...] LDL(IF NEEDED) (10/27/2009 2:43 PM CDT) Pathologist [facility] Cholesterol 160 0 - 199 mg/dl [facility] Triglyceride 227(H) 0 - 149 mg/dl [facility] HDL 40(L) >40 mg/dl [facility] LDL, Calc. 75 0 - 129 mg/dl [facility] Hours Fasting 4 hours [facility] 10/27/2009 2:43 PM CDT 10/27/2009 2:49 PM CDT Willard Chávez MD LAB_[email or web address] Final Result Performing Organization Address [facility] Co de Phone Number [facility] [address] [phone] * PSA (Screen) 3616 (10/27/2009 2:43 PM CDT) Prostatic Spec Ag 0.37 0.00 - 4.00 ng/ml [facility] 10/27/2009 2:43 PM CDT 10/27/2009 2:49 PM CDT Willard Chávez MD LAB_1 Final Result Performing Organization Address [facility] de Phone Number [facility] [address] [phone] from Last 3 Months or Most Recently Relevant to Health Maintenance Insurance [facility] OUT OF STATE BCBS OUT OF STATE BCBS OUT OF STATE BCBS OUT OF STATE Care Teams Contact Clerk Relationship Specialty Start Date End Date Clinician, Not Found, [place] [address] PCP - General 10/12/15
== END 2024-08-06 09:16 | disposition home or self-care (01) ==
LOC: NPINS 08-09 12:43
PROVIDERS: PCP Family Medicine; Visit Provider Urology
DX: C61 Malignant neoplasm of prostate (principal)
CPT/HCPCS: 80053

== ENCOUNTER 2024-09-03 08:56 | Outpatient (CLI) | payer BC, SELFPAY ==
[2024-09-03 12:00] LABS: Albumin* 4.0 g/dL (3.3-5.0); Chloride* 105 mmol/L (96-114); Potassium* 3.8 mmol/L (3.6-5.1); Sodium* 139 mmol/L (135-149)
[2024-09-03 12:03] LABS: Alanine Aminotransferase* 25 U/L (4-50); Alkaline Phosphatase* 89 U/L (40-150); Anion Gap 7 mEq/L (7-15); Aspartate Amino Transferase* 27 U/L (12-35); Bilirubin Total* 0.4 mg/dL (0.1-1.5); Blood Urea Nitrogen* 16 mg/dL (7-30); Carbon Dioxide* 27 mmol/L (20-32); Creatinine* 0.9 mg/dL (0.5-1.5); Estimated Glomerular Filt Rate 100 ml/min; Total Protein* 6.6 g/dL (6.0-8.3)
[2024-09-03 12:04] LABS: Calcium* 9.9 mg/dL (8.4-10.6); Glucose* 134 mg/dL (60-115)
== END 2024-09-03 08:57 | disposition home or self-care (01) ==
LOC: NPINS 08:57
PROVIDERS: PCP Family Medicine; Visit Provider Urology
DX: C61 Malignant neoplasm of prostate (principal)
CPT/HCPCS: 80053

== ENCOUNTER 2024-10-15 09:03 | Outpatient (CLI) | payer BC, SELFPAY ==
[2024-10-15 13:43] LABS: Albumin* 4.1 g/dL (3.3-5.0); Chloride* 102 mmol/L (96-114); Sodium* 138 mmol/L (135-149)
[2024-10-15 13:44] LABS: Potassium* 4.3 mmol/L (3.6-5.1)
[2024-10-15 13:46] LABS: Alanine Aminotransferase* 47 U/L (4-50); Alkaline Phosphatase* 83 U/L (40-150); Anion Gap 8 mEq/L (7-15); Aspartate Amino Transferase* 53 U/L (12-35); Bilirubin Total* 0.7 mg/dL (0.1-1.5); Blood Urea Nitrogen* 12 mg/dL (7-30); Carbon Dioxide* 28 mmol/L (20-32); Creatinine* 0.8 mg/dL (0.5-1.5); Estimated Glomerular Filt Rate 104 ml/min; Total Protein* 6.7 g/dL (6.0-8.3)
[2024-10-15 13:47] LABS: Calcium* 10.0 mg/dL (8.4-10.6); Glucose* 104 mg/dL (60-115)
== END 2024-10-15 09:04 | disposition home or self-care (01) ==
LOC: NPINS 09:04
PROVIDERS: PCP Family Medicine; Visit Provider Urology
DX: C61 Malignant neoplasm of prostate (principal)
CPT/HCPCS: 80053

== ENCOUNTER 2024-10-15 09:04 | Outpatient (CLI) | payer BC, SELFPAY | END 2024-10-15 09:05 | disposition home or self-care (01) | LOC: NPINS 09:05 | PROVIDERS: PCP Family Medicine; Visit Provider Hospitalist | DX: E66.9 Obesity, unspecified (principal); R73.03 Prediabetes | CPT/HCPCS: 83036 ==

== ENCOUNTER 2024-11-02 09:02 | Outpatient (CLI) | payer BC, SELFPAY ==
[2024-11-02 13:38] LABS: Chloride* 106 mmol/L (96-114)
[2024-11-02 13:39] LABS: Albumin* 3.9 g/dL (3.3-5.0); Potassium* 4.4 mmol/L (3.6-5.1); Sodium* 142 mmol/L (135-149)
[2024-11-02 13:41] LABS: Blood Urea Nitrogen* 11 mg/dL (7-30); Creatinine* 0.9 mg/dL (0.5-1.5); Estimated Glomerular Filt Rate 100 ml/min
[2024-11-02 13:42] LABS: Alanine Aminotransferase* 24 U/L (4-50); Alkaline Phosphatase* 83 U/L (40-150); Anion Gap 7 mEq/L (7-15); Aspartate Amino Transferase* 26 U/L (12-35); Bilirubin Total* 0.5 mg/dL (0.1-1.5); Calcium* 9.4 mg/dL (8.4-10.6); Carbon Dioxide* 29 mmol/L (20-32); Glucose* 115 mg/dL (60-115); Total Protein* 6.4 g/dL (6.0-8.3)
== END 2024-11-02 09:03 | disposition home or self-care (01) ==
LOC: NPINS 09:03
PROVIDERS: PCP Family Medicine; Visit Provider Urology
DX: C61 Malignant neoplasm of prostate (principal)
CPT/HCPCS: 80053